=== PATIENT | male | born 1945 | race Caucasian/White ===

== ENCOUNTER 2017-12-08 15:11 | Inpatient (IN) | payer OTHER ==
[~2017-12-08] VITALS: Ht 210.8 cm; Wt 90.9 kg
--- NOTE | 2017-12-08 15:30 | EMERGENCY ROOM VISIT NOTE ---
History Report prepared by Asad: Linsey Orr Under the Supervision of: Dr. Jose Kaye D.O. 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 He states he was at [facility] and was told he had some elevated live enzymes and an ultrasound, chest x- ray, and blood work done for further testing but is unaware of the results. He describes his pain as a discomfort and notes it is difficult to sleep. The patient has some chest pain, abdominal pain, and nausea but denies any cancers in his abdomen or history of cirrhosis. The patient notes he drank heavily in the past and still drinks and chews tobacco. 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 A total of 10 systems reviewed and were otherwise negative. Past Medical & Surgical Medical Problems: (1) No significant past medical history Surgical Problems: (1) History of colonoscopy Family History No pertinent family history Social History Smoking Status: Former Smoker Smokeless Tobacco Use: Yes Alcohol Use: heavy Drug Use: none Housing Status: assisted living Occupation Status: retired Current/Historical Medications No Active Prescriptions or Reported Meds Allergies Coded Allergies: No Known Allergies (Unverified , 12/08/17) Physical Exam Vital Signs Date Time Temp Pulse Resp B/P (MAP) Pulse Ox O2 Delivery O2 Flow Rate FiO2 12/08/17 18:20 105 20 149/108 98 Room Air 12/08/17 17:19 100 20 116/94 96 Room Air 12/08/17 15:18 36.8 124 20 153/102 96 Room Air Physical Exam GENERAL: Patient is awake, alert, and in no acute distress. Patient is resting comfortably and showing no signs of anxiety EYES: The conjunctivae are clear. The pupils are round and reactive. EARS, NOSE, MOUTH AND THROAT: The nose is without any evidence of any deformity. Mucous membranes are moist. Tongue is midline NECK: The neck is nontender and supple. RESPIRATORY: Lung sounds were diminished at both bases. There is no evidence of wheezing rhonchi or rales to auscultation. CARDIOVASCULAR: Regular rate and rhythm noted. There no murmurs rubs or gallops normal S1 normal S2 GASTROINTESTINAL: The abdomen is soft. Bowel sounds are present in all quadrants. Abdomen is nontender. BACK: No midline tenderness or or step-off noted range of motion in flexion extension as well as rotation no signs of muscle spasm noted. : Circumcised male genitalia was noted. There was significant edema noted in the suprapubic region as well as the scrotum. MUSCULOSKELETAL/EXTREMITIES: There is no evidence of gross deformity. Full range of motion is noted in the hips and shoulders. SKIN: Pedal edema bilaterally. NEUROLOGIC: Patient is awake alert and oriented x3. Medical Decision & Procedures ER Provider Diagnostic Interpretation: Radiology results as stated below per my review and radiologist interpretation: CHEST ONE VIEW PORTABLE CLINICAL HISTORY: 72 years-old Male presenting with EVALUATE ALTERED MENTAL STATUS/WEAKNESS. TECHNIQUE: Portable upright AP view of the chest was obtained. COMPARISON: None. FINDINGS: Cardiac silhouette enlarged. Linear opacities in the left midlung with obscuration of the left hemidiaphragm. Suspected left pleural effusion. No pleural effusion. Degenerative changes of the spine and acromioclavicular joints. IMPRESSION: 1. Left midlung atelectasis or scarring with left basilar infiltrate. Pneumonia is not excluded. 2. Left pleural effusion. Electronically signed by: Rober Hanson M.D. 12/08/2017 4:25 PM ABD/PELVIS IV CONTRAST ONLY CLINICAL HISTORY: 72 years-old Male presenting with edema, abnormal US liver, testicular swelling. TECHNIQUE: Multidetector CT of the abdomen and pelvis was performed after the administration of intravenous contrast. IV contrast: 87 mL of Optiray 320. A dose lowering technique was used consistent with the principles of ALARA (as low as reasonably achievable). COMPARISON: None. CT DOSE (mGy.cm): The estimated cumulative dose is 869.62 mGy.cm. FINDINGS: Motion artifact degrades evaluation of the right upper and mid abdomen. Urology Surgeon topogram: Left basilar opacity and left pleural effusion. Lung bases: Bilateral bandlike and dependent consolidation in the lower lobes with associated volume loss consistent with passive atelectasis in the setting of small to moderate bilateral pleural effusions. Multichamber enlargement of the heart. Small pericardial effusion. Liver: Normal morphology. No liver lesion. Patent hepatic vasculature. Biliary: No intrahepatic or extrahepatic biliary ductal dilatation. Normal gallbladder. Pancreas: Mild parenchymal atrophy. Spleen: Normal. Adrenal glands: Normal. Kidneys and ureters: Normal. No hydronephrosis. Bladder: Incompletely evaluated secondary to underdistention. Pelvic organs: Prostate and seminal vesicles normal. Bowel: Diverticulosis of the proximal to mid sigmoid colon. No wall thickening or pericolonic inflammatory change. Scattered diverticula in the descending colon. The appendix is normal. No bowel obstruction. Peritoneal cavity: Trace free fluid in the pelvis. Small amount of retroperitoneal fluid tracking into the extraperitoneal pelvis and presacral region. No intraperitoneal free gas. Lymph nodes: No enlarged lymph nodes in the abdomen or pelvis. Vasculature: Aorta and IVC patent and normal in caliber. Abdominal wall: Mild body wall edema. Fat-containing left internal hernia. Fat, small bowel, and fluid containing right inguinal hernia. Musculoskeletal: Degenerative changes of the spine. IMPRESSION: 1. Bilateral inguinal hernias, right greater than left. The right inguinal hernia contains small bowel and fluid. No bowel obstruction. 2. Volume overload evidenced by small to moderate bilateral pleural effusions, trace ascites and diffuse body wall edema. 3. Cardiomegaly. 4. Diverticulosis. No evidence of diverticulitis. Electronically signed by: Rober Hanson M.D. 12/08/2017 5:17 PM Laboratory Results Test 12/08/17 15:40 Immature Granulocyte % (Auto) 0.0 % White Blood Count 4.05 K/uL (4.8-10.8) Red Blood Count 4.38 M/uL (4.7-6.1) Hemoglobin 14.2 g/dL (14.0-18.0) Hematocrit 43.3 % (42-52) Mean Corpuscular Volume 98.9 fL (80-100) Mean Corpuscular Hemoglobin 32.4 pg (25-34) Mean Corpuscular Hemoglobin Concent 32.8 g/dl (32-36) Platelet Count 192 K/uL (130-400) Mean Platelet Volume 10.7 fL (7.4-10.4) Neutrophils (%) (Auto) 65.5 % Lymphocytes (%) (Auto) 20.7 % Monocytes (%) (Auto) 13.1 % Eosinophils (%) (Auto) 0.5 % Basophils (%) (Auto) 0.2 % Neutrophils # (Auto) 2.65 K/uL (1.4-6.5) Lymphocytes # (Auto) 0.84 K/uL (1.2-3.4) Monocytes # (Auto) 0.53 K/uL (0.11-0.59) Eosinophils # (Auto) 0.02 K/uL (0-0.5) Basophils # (Auto) 0.01 K/uL (0-0.2) Immature Granulocyte # (Auto) 0.00 K/uL (0.00-0.02) Prothrombin Time 11.6 SECONDS (9.0-12.0) Prothromb Time International Ratio 1.1 (0.9-1.1) Activated Partial Thromboplast Time 25.5 SECONDS (21.0-31.0) Partial Thromboplastin Ratio 1.0 Lipase 473 U/L (73-393) Thyroid Stimulating Hormone (TSH) 2.680 uIu/ml (0.300-4.500) Hepatitis C Antibody NEG (NEG) Laboratory results per my review. Medications Administered Medications (Trade) Dose Ordered Sig/Ebenezer Route Start Time Stop Time Status Last Admin Dose Admin Furosemide (Lasix Inj) 40 mg NOW STAT IV 12/08/17 18:05 12/08/17 18:06 DC 12/08/17 18:16 40 MG ECG Per My Interpretation Indication: abdominal pain Rate (beats per minute): 108 Rhythm: sinus tachycardia Findings: PVC (frequent), other (poor R wave progression noted ) Comparison ECG Date: no prior available ED Course 1522: The patient was evaluated in room A11. A complete history and physical examination were performed. 1804: Ordered Lasix Inj 40 mg IV 1809: I discussed the patient's case with HERNÁN Greenberg. The patient will be evaluated for further management. Medical Decision Prior records/ancillary studies reviewed. Triage Nursing notes reviewed. Differential diagnosis: Etiologies such as appendicitis, diverticulitis, PUD, biliary pathology, UTI, pancreatitis, obstruction, mesenteric ischemia, aortic pathology, infections, inflammatory bowel disease, renal colic, as well as others were entertained. The patient is a 72-year-old male who presented to the emerge department for lower extremity and scrotal edema. The patient does have a long history of alcohol use but he has never been formally diagnosed with alcoholism cirrhosis or ascites. The patient has been having ongoing symptoms including shortness of breath. He was found to have ascites as well as bilateral pleural effusion. He also has an abnormal EKG and it is possible this could represent CHF or pulmonary edema. Clearly the patient has some sort of underlying medical condition which is causing him to third space fluid. The patient was treated with Lasix in the emergency department. I discussed patient's laboratory and radiographic studies with him. Because of his symptoms I also discussed his case with the on-call [facility] hospitalist group. They have agreed to evaluate the patient in the emergency department for further management and disposition. Medication Reconcilliation Current Medication List: was personally reviewed by me Blood Pressure Screening Patient's blood pressure: Elevated blood pressure Blood pressure disposition: Referred to PCP Consults Time Called: 1756 Consulting Physician: HERNÁN Greenberg Returned Call: 1809 I discussed the patient's case with HERNÁN Greenberg. The patient will be evaluated for further management. Impression Primary Impression: Anasarca Additional Impressions: Bilateral pleural effusion Ascites Abnormal EKG Scribe Attestation The scribe's documentation has been prepared under my direction and personally reviewed by me in its entirety. I confirm that the note above accurately reflects all work, treatment, procedures, and medical decision making performed by me. Departure Information Dispostion Being Evaluated By Hospitalist (HERNÁN Greenberg) Prescriptions No Active Prescriptions or Reported Meds Patient Instructions My [facility] Problem Qualifiers Additional Impressions: Ascites Ascites type: other type Qualified Codes: R18.8 - Other ascites
[2017-12-08 15:53] LABS: BASO % 0.2 %; BASO ABS # 0.01 K/uL (0-0.2); EOS % 0.5 %; EOS ABS # 0.02 K/uL (0-0.5); HEMATOCRIT 43.3 % (42-52); HEMOGLOBIN 14.2 g/dL (14.0-18.0); LYMPH % 20.7 %; LYMPH ABS # 0.84 K/uL (1.2-3.4); MEAN CELL VOLUME 98.9 fL (80-100); MEAN CORPUSCULAR HEMOGLOBIN 32.4 pg (25-34); MEAN CORPUSCULAR HGB CONC 32.8 g/dl (32-36); MEAN PLATELET VOLUME 10.7 fL (7.4-10.4); MONO % 13.1 %; MONO ABS # 0.53 K/uL (0.11-0.59); NEUT % 65.5 %; NEUT ABS # 2.65 K/uL (1.4-6.5); PLATELET COUNT 192 K/uL (130-400); RED CELL DISTRIBUTION WIDTH CV 14.2 % (11.5-14.5); RED CELL DISTRIBUTION WIDTH SD 50.7 fL (36.4-46.3); WHITE BLOOD COUNT 4.05 K/uL (4.8-10.8)
[2017-12-08 16:05] LABS: INR 1.1 (0.9-1.1); PTT PATIENT 25.5 SECONDS (21.0-31.0)
--- NOTE | 2017-12-08 16:26 | DIAGNOSTIC IMAGING REPORT ---
CHEST ONE VIEW PORTABLE CLINICAL HISTORY: 72 years-old Male presenting with EVALUATE ALTERED MENTAL STATUS/WEAKNESS. TECHNIQUE: Portable upright AP view of the chest was obtained. COMPARISON: None. FINDINGS: Cardiac silhouette enlarged. Linear opacities in the left midlung with obscuration of the left hemidiaphragm. Suspected left pleural effusion. No pleural effusion. Degenerative changes of the spine and acromioclavicular joints. IMPRESSION: 1. Left midlung atelectasis or scarring with left basilar infiltrate. Pneumonia is not excluded. 2. Left pleural effusion. Electronically signed by: Rober Hanson M.D. 12/08/2017 4:25 PM Dictated Date/Time: 12/08/2017 4:24 PM
[2017-12-08 16:28] LABS: ALBUMIN 3.6 gm/dl (3.4-5.0); CALCIUM 8.8 mg/dl (8.5-10.1); CREATININE 1.01 mg/dl (0.60-1.40); POTASSIUM 3.9 mmol/L (3.5-5.1); TOTAL PROTEIN 6.4 gm/dl (6.4-8.2)
[2017-12-08] MEDS ORDERED: OPTIRAY 320 IV PRN (16:30)
--- NOTE | 2017-12-08 17:18 | DIAGNOSTIC IMAGING REPORT ---
ABD/PELVIS IV CONTRAST ONLY CLINICAL HISTORY: 72 years-old Male presenting with edema, abnormal US liver, testicular swelling. TECHNIQUE: Multidetector CT of the abdomen and pelvis was performed after the administration of intravenous contrast. IV contrast: 87 mL of Optiray 320. A dose lowering technique was used consistent with the principles of ALARA (as low as reasonably achievable). COMPARISON: None. CT DOSE (mGy.cm): The estimated cumulative dose is 869.62 mGy.cm. FINDINGS: Motion artifact degrades evaluation of the right upper and mid abdomen. Layout Worker topogram: Left basilar opacity and left pleural effusion. Lung bases: Bilateral bandlike and dependent consolidation in the lower lobes with associated volume loss consistent with passive atelectasis in the setting of small to moderate bilateral pleural effusions. Multichamber enlargement of the heart. Small pericardial effusion. Liver: Normal morphology. No liver lesion. Patent hepatic vasculature. Biliary: No intrahepatic or extrahepatic biliary ductal dilatation. Normal gallbladder. Pancreas: Mild parenchymal atrophy. Spleen: Normal. Adrenal glands: Normal. Kidneys and ureters: Normal. No hydronephrosis. Bladder: Incompletely evaluated secondary to underdistention. Pelvic organs: Prostate and seminal vesicles normal. Bowel: Diverticulosis of the proximal to mid sigmoid colon. No wall thickening or pericolonic inflammatory change. Scattered diverticula in the descending colon. The appendix is normal. No bowel obstruction. Peritoneal cavity: Trace free fluid in the pelvis. Small amount of retroperitoneal fluid tracking into the extraperitoneal pelvis and presacral region. No intraperitoneal free gas. Lymph nodes: No enlarged lymph nodes in the abdomen or pelvis. Vasculature: Aorta and IVC patent and normal in caliber. Abdominal wall: Mild body wall edema. Fat-containing left internal hernia. Fat, small bowel, and fluid containing right inguinal hernia. Musculoskeletal: Degenerative changes of the spine. IMPRESSION: 1. Bilateral inguinal hernias, right greater than left. The right inguinal hernia contains small bowel and fluid. No bowel obstruction. 2. Volume overload evidenced by small to moderate bilateral pleural effusions, trace ascites and diffuse body wall edema. 3. Cardiomegaly. 4. Diverticulosis. No evidence of diverticulitis. Electronically signed by: Rober Hanson M.D. 12/08/2017 5:17 PM Dictated Date/Time: 12/08/2017 5:11 PM
[2017-12-08] MEDS ORDERED: FUROSEMIDE 40 MG/4 ML VIAL IV STA (18:05)
[2017-12-08] MEDS ORDERED: ACETAMINOPHEN 325 MG TAB PO PRN (19:00)
[2017-12-08] MEDS ORDERED: POLYETHYLENE (MIRALAX) 17 GM PACK PO PRN (19:00)
[2017-12-08] MEDS ORDERED: LORAZEPAM 2 MG/ML 1 ML VIAL IV PRN (19:15)
[2017-12-08] MEDS ORDERED: GABAPENTIN 600 MG TAB PO SCH (19:15)
--- NOTE | 2017-12-08 19:50 | History and Physical ---
History & Physical Date & Time of Service: Dec 08, 2017 at 19:18 Chief Complaint: Swelling Around Testicals Primary Care Physician: Barney Reno M.D. History of Present Illness Source: patient, clinic records, hospital records Pt is 72 y/o M without known significant medical history presented to ER with c/ o edema. Patient states 5 days ago he was working and pinched his left scrotum and states had slight scrotal edema. 2 days later reports diffuse increased scrotal edema. Reports scrotal pressure but denies pain or ecchymosis/ erythema. Reports scrotal edema surrounding penis and has had noted trouble with urination. Denies dysuria, hematuria. He has known inguinal hernia, denies any noted increased swelling or pain. Patient states 2 days ago noticed swelling to bilateral feet and legs and states felt diffuse abdominal pressure with sitting up. He reports cough sometimes intermittently productive (unsure coloration) for past 1-2 weeks. States 2 weeks ago started with postnasal drainage and states that increased drainage with lying supine. Noticed increased coughing at night. Reports noted orthopnea past week. Patient states noted 10pound weight gain upon evaluation at PCPs office. Today feeling a little dizzy, no syncope. Reports past 1-2 weeks with night sweats. Denies fever, diaphoresis, N/V/D/C, NOEL, vision changes, neck pain, CP, palpitations, hemoptysis, sore throat, choking, otalgia, paresthesias, weakness, extremity weakness, rashes, weight loss. Seen out pt PCP on 12/07/17 and had ULTRASOUND SCROTUM/TESTES: Impression: No evidence of injury testicular mass or torsion. Normal epididymis. Large bilateral hydrocele and edema of the scrotal wall. ULTRASOUND ABDOMEN: Impression diffusely increased echogenicity of the liver. Nonspecific finding. Fatty infiltration is a consideration, other diffuse hepatocellular processes. No sonographic evidence of cholelithiasis, cholecystitis or biliary ductal dilation. Limited evaluation of pancreas. Normal right kidney. Right pleural effusion. Denies fever/chills, diaphoresis, N/V/D/C, melena, hematochezia, NOEL, dizziness, syncope, vision changes, neck pain, CP, SOB, orthopnea, palpitations, cough, sore throat, choking, otalgia, rhinorrhea, abdominal pain, paresthesias, weakness, extremity weakness, extremity edema, rashes, weight loss. Past Medical/Surgical History Medical Problems: (1) No significant past medical history Status: Chronic Surgical Problems: (1) History of colonoscopy Permanent Comment: 2015 -diverticulosis, hyperplastic polyp. Dr. lemus Status: Resolved Family History FH: CAD (coronary artery disease) FH: leukemia FH: prostate cancer Hypertension Social History Smoking Status: Former Smoker Smokeless Tobacco Use: Yes (4-5 cans snuff per week) Alcohol Use: 3-4 beers a day. Last drink 2 days ago Drug Use: none Housing status: lives alone Occupational Status: retired Allergies Coded Allergies: No Known Allergies (Unverified , 12/08/17) Home Medications No Active Prescriptions or Reported Meds Review of Systems See HPI for pertinent positives & negatives. All other systems reviewed and were otherwise negative Physical Exam Vital Signs Date Time Temp Pulse Resp B/P (MAP) Pulse Ox O2 Delivery O2 Flow Rate FiO2 12/08/17 18:20 105 20 149/108 98 Room Air 12/08/17 17:19 100 20 116/94 96 Room Air 12/08/17 15:18 36.8 124 20 153/102 96 Room Air General Appearance: WD/WN, no apparent distress Head: normocephalic, atraumatic Eyes: normal inspection, EOMI, sclerae normal ENT: hearing grossly normal, pharynx normal, + pertinent finding (Mucous membranes moist) Neck: supple, trachea midline Respiratory/Chest: no respiratory distress, no accessory muscle use, + decreased breath sounds (Bases bilaterally) Cardiovascular: no murmur, normal peripheral pulses, + tachycardia Abdomen/GI: normal bowel sounds, non tender, soft Genitourinary - Male: + pertinent finding (+ bilateral inguinal hernia, nontender. + Moderate scrotal and penile edema) Extremities/Musculoskelatal: normal capillary refill, normal range of motion, non-tender, + pedal edema (Bilateral leg pitting edema 2-3+) Neurologic/Psych: alert, normal mood/affect, oriented x 3 Skin: warm/dry Diagnostics Laboratory Results Results Past 24 Hours Test 12/08/17 15:40 12/08/17 19:04 Range/Units White Blood Count 4.05 4.8-10.8 K/uL Red Blood Count 4.38 4.7-6.1 M/uL Hemoglobin 14.2 14.0-18.0 g/dL Hematocrit 43.3 42-52 % Mean Corpuscular Volume 98.9 80-100 fL Mean Corpuscular Hemoglobin 32.4 25-34 pg Mean Corpuscular Hemoglobin Concent 32.8 32-36 g/dl Platelet Count 192 130-400 K/uL Mean Platelet Volume 10.7 7.4-10.4 fL Neutrophils (%) (Auto) 65.5 % Lymphocytes (%) (Auto) 20.7 % Monocytes (%) (Auto) 13.1 % Eosinophils (%) (Auto) 0.5 % Basophils (%) (Auto) 0.2 % Neutrophils # (Auto) 2.65 1.4-6.5 K/uL Lymphocytes # (Auto) 0.84 1.2-3.4 K/uL Monocytes # (Auto) 0.53 0.11-0.59 K/uL Eosinophils # (Auto) 0.02 0-0.5 K/uL Basophils # (Auto) 0.01 0-0.2 K/uL RDW Standard Deviation 50.7 36.4-46.3 fL RDW Coefficient of Variation 14.2 11.5-14.5 % Immature Granulocyte % (Auto) 0.0 % Immature Granulocyte # (Auto) 0.00 0.00-0.02 K/uL Prothrombin Time 11.6 9.0-12.0 SECONDS Prothromb Time International Ratio 1.1 0.9-1.1 Activated Partial Thromboplast Time 25.5 21.0-31.0 SECONDS Partial Thromboplastin Ratio 1.0 Sodium Level 140 136-145 mmol/L Potassium Level 3.9 3.5-5.1 mmol/L Chloride Level 107 98-107 mmol/L Carbon Dioxide Level 24 21-32 mmol/L Anion Gap 9.0 3-11 mmol/L Blood Urea Nitrogen 22 7-18 mg/dl Creatinine 1.01 0.60-1.40 mg/dl Est Creatinine Clear Calc Drug Dose 83.4 ml/min Estimated GFR () 86.3 Estimated GFR (Non- 74.5 BUN/Creatinine Ratio 22.0 10-20 Random Glucose 114 70-99 mg/dl Calcium Level 8.8 8.5-10.1 mg/dl Magnesium Level 2.1 1.8-2.4 mg/dl Total Bilirubin 1.3 0.2-1 mg/dl Direct Bilirubin 0.4 0-0.2 mg/dl Aspartate Amino Transf (AST/SGOT) 39 15-37 U/L Alanine Aminotransferase (ALT/SGPT) 69 12-78 U/L Alkaline Phosphatase 92 45-117 U/L Troponin I 0.028 0-0.045 ng/ml Pro-B-Type Natriuretic Peptide 7742 0-900 pg/ml Total Protein 6.4 6.4-8.2 gm/dl Albumin 3.6 3.4-5.0 gm/dl Lipase 473 73-393 U/L Thyroid Stimulating Hormone (TSH) 2.680 0.300-4.500 uIu/ml Diagnostic Radiology CXR: IMPRESSION: 1. Left midlung atelectasis or scarring with left basilar infiltrate. Pneumonia is not excluded. 2. Left pleural effusion. CT ABDOMEN PELVIS: IMPRESSION: 1. Bilateral inguinal hernias, right greater than left. The right inguinal hernia contains small bowel and fluid. No bowel obstruction. 2. Volume overload evidenced by small to moderate bilateral pleural effusions, trace ascites and diffuse body wall edema. 3. Cardiomegaly. 4. Diverticulosis. No evidence of diverticulitis. Impression Assessment and Plan ANASARCA B/L PLEURAL EFFUSIONS DDX: CHF, cirrhosis, obstruction Pt reports onset scrotal edema 5 days ago with BLE edema 2 days ago. orthopnea x 1 week, noted ~10 pound weight gain. 12/07/17 outpatient U/S ABDOMEN: Impression diffusely increased echogenicity of the liver. Nonspecific finding. Fatty infiltration is a consideration, other diffuse hepatocellular processes. No sonographic evidence of cholelithiasis, cholecystitis or biliary ductal dilation. Limited evaluation of pancreas. Normal right kidney. Right pleural effusion. Today in ER pt afebrile, BP: 153/102 down to 115/88, P: 124 down to 101, R: 20, O2 96% on RA. WBC: 4, Troponin: 0.028, BNP: 7742. CXR: 1. Left midlung atelectasis or scarring with left basilar infiltrate. Pneumonia is not excluded. 2. Left pleural effusion. Pt was given lasix 40mg IV in ER -monitor I&O's and daily weight -low sodium diet, fluid restriction 1500ml -lasix 40mg IV BID -echo -cardiology consult -trend troponin -CBC, liver profile, electrolytes in am -BNP in am SCROTAL EDEMA BILATERAL HYDROCELES Reported onset scrotal edema 5 days ago with worsening 12/07/17 - Outpatient U/S SCROTUM/TESTES: Impression: No evidence of injury testicular mass or torsion. Normal epididymis. Large bilateral hydrocele and edema of the scrotal wall. 12/07/17 outpatient U/S ABDOMEN: Impression diffusely increased echogenicity of the liver. Nonspecific finding. Fatty infiltration is a consideration, other diffuse hepatocellular processes. No sonographic evidence of cholelithiasis, cholecystitis or biliary ductal dilation. Limited evaluation of pancreas. Normal right kidney. Right pleural effusion. -UA pending PERICARDIAL EFFUSION small pericardial effusion noted on CT abd/pelvis -echo -cardiology consult COUGH BILATERAL CONSOLIDATION LOWER LOBES DDX: infectious vs fluid overload Afebrile. no leukocytosis -start doxycycline -incentive spirometry HTN In ER BP's 153/102 down to 155/88 -Lasix 40mg IV BID -monitor ELEVATED LIVER FUNCTIONS Total bilirubin: 1.3, direct bilirubin: 0.4, AST: 39, ALT: 69, Alk Phos:92. Albumin WNL. Coags WNL. 12/07/17 outpatient U/S ABDOMEN: Impression diffusely increased echogenicity of the liver. Nonspecific finding. Fatty infiltration is a consideration, other diffuse hepatocellular processes. No sonographic evidence of cholelithiasis, cholecystitis or biliary ductal dilation. Limited evaluation of pancreas. Normal right kidney. Right pleural effusion. In ER CT ABDOMEN PELVIS: 1. Bilateral inguinal hernias, right greater than left. The right inguinal hernia contains small bowel and fluid. No bowel obstruction. 2. Volume overload evidenced by small to moderate bilateral pleural effusions, trace ascites and diffuse body wall edema. 3. Cardiomegaly. 4. Diverticulosis. No evidence of diverticulitis. - liver profile, electrolytes in am -acute hepatitis panel ETOH ABUSE drinks 4 beers daily. Last drink reported 2 days ago -alcohol withdrawal protocol -start thiamine, folic acid QTC PROLONGATION QTc: 482 -avoid QTc prolonging agents DVT Prophylaxis -lovenox Admit tele Full Code as per discussion with pt Follows with Dr Reno for routine care Pt was seen with Dr Parks. See addendum Attending Note: Patient is a 72 yr male with no known significant medical history presents with history of worsening leg edema, scrotal swelling, weight gain, difficulty with urination, abdominal discomfort, productive cough, diaphoresis at night time, orthopnea and dizziness. Please review HPI for complete details. Patient was underwent scrotal USD and abd USD as outpatient which did not show any evidence of testicular mass/torsion but was consistent with large hydrocele and edema of scrotal wall. Abd USD was suggestive of diffusely increased echogenicity of the liver. Patient was also noted to have mild elevation of LFTs and Pro- BNP was 7742. CT abd showed b/l inguinal hernia, b/l pleural effusion, cardiomegaly. CXR showed Left basilar infiltrate and left pleural effusion. Patient admits to drinking beer on daily basis. Physical Exam: General Appearance:Moderately built and nourished, no apparent distress Head: normocephalic, Atraumatic Eyes: normal inspection, EOMI, PERRL Neck: supple, Trachea midline Respiratory/Chest: Normal breath sounds, CTA Cardiovascular: S1, S2, No murmur, +Tachycardia Abdomen/GI:Soft, Non tender, Bowel sounds present : severe Scrotal swelling, + Inguinal hernia Extremities/Musculoskelatal:normal inspection, 2+ b/l LE edema Neurologic/Psych:AAOX3, grossly no focal neurological deficits Skin:normal color,warm Assessment and Plan: Anasarca: No known history of CHF, Liver disease, CKD, Medication use DD: CHF, Cirrhosis (Given chronic alcoholic use and USD findings), Obstructive Uropathy, r/o ACS although less likely Normal TSH, Albumin:3.6 Agree with IV diuretics, Fluid restriction, Low salt diet Check ECHO Bladder scan protocol, I/Os, daily weight EKG in am, Trend Troponin Empirically cover doxycycline for possible pneumonia Monitor BP Hepatitis panel Cardiology consulted Consider GI eval as necessary Repeat EKG in AM Avoid QTC prolonging meds I personally reviewed the record. Patient is interviewed and examined at bedside. Patient's care is coordinated with Shanon Quintero PA-C. Please refer to the documentation above for details of patient's presentation and for discussion of other issues. Resuscitation Status VTE Prophylaxis Will order VTE Prophylaxis: Yes Additional Copies To Barney Reno M.D.
[2017-12-08 21:00] VITALS: Ht 210.8 cm; Wt 90.9 kg
[2017-12-08 21:16] VITALS: BP 127/94; PULSE 106; TEMP 36.8; O2SAT 98
[2017-12-08] MEDS: ENOXAPARIN 40 MG/0.4 ML SYR SC SCH (21:31)
[2017-12-08] MEDS: DOXYCYCLINE HYCLATE 100 MG CAP PO SCH (21:32)
[2017-12-08] MEDS ORDERED: GABAPENTIN 1200MG LOADING DOSE PO SCH (22:00)
[2017-12-08 23:54] VITALS: BP 119/75; PULSE 87; TEMP 36.8; O2SAT 92
[2017-12-09] VITALS (9 sets, daily range): BP systolic 99–124; BP diastolic 75–94; PULSE 75–97; TEMP 36.4–37; O2SAT 92–98
[2017-12-09] MEDS: GABAPENTIN 600MG Q6H DOSE PO SCH ×2 (06:21→11:34)
[2017-12-09 06:38] LABS: HEMATOCRIT 43.9 % (42-52); HEMOGLOBIN 13.9 g/dL (14.0-18.0); MEAN CELL VOLUME 100.2 fL (80-100); MEAN CORPUSCULAR HEMOGLOBIN 31.7 pg (25-34); MEAN CORPUSCULAR HGB CONC 31.7 g/dl (32-36); MEAN PLATELET VOLUME 10.3 fL (7.4-10.4); PLATELET COUNT 157 K/uL (130-400); RED CELL DISTRIBUTION WIDTH CV 14.4 % (11.5-14.5); RED CELL DISTRIBUTION WIDTH SD 52.3 fL (36.4-46.3); WHITE BLOOD COUNT 2.85 K/uL (4.8-10.8)
[2017-12-09 07:26] LABS: ALBUMIN 3.3 gm/dl (3.4-5.0); CALCIUM 8.6 mg/dl (8.5-10.1); CREATININE 1.04 mg/dl (0.60-1.40); PHOSPHORUS 4.4 mg/dl (2.5-4.9); POTASSIUM 3.7 mmol/L (3.5-5.1)
[2017-12-09] MEDS: MULTIVITAMIN TAB PO SCH (07:50)
[2017-12-09] MEDS: THIAMINE HCL 100 MG TAB PO SCH (07:50)
[2017-12-09] MEDS: DOXYCYCLINE HYCLATE 100 MG CAP PO SCH ×2 (07:50→20:41)
[2017-12-09] MEDS: FoLIC ACID TAB 400 MCG TAB PO SCH (07:50)
[2017-12-09] MEDS: FUROSEMIDE INJ 40 MG in SYRINGE 0 ML IV SCH ×2 (07:50→16:55)
--- NOTE | 2017-12-09 11:06 | Cardiology Consultation ---
Cardiology Consultation Date of Consultation: Dec 09, 2017 Requesting Physician: Ingrid/Charly Attending Wreath Maker: Kaila (Barney Thomason PA-C) History of Present Illness Mr. Dos Santos is a 72-year-old male who is being seen at the request of Ms. Shanon Quintero PA-C/Dr. Ramiro Parks MD. Reasons for consultation include fluid overload and pericardial effusion. He presented to the [facility] Emergency Room primarily due to testicular pain/swelling. On questioning, he has been experiencing a mild nonproductive cough at night and in the pathology tech hours for the last couple weeks, intermittent orthopnea for the last couple weeks that he attributes to sinus congestion, intermittent diaphoresis at night, abdominal distention followed more recently by scrotal edema, and lastly lower extremity peripheral edema and weight gain. Mr. Dos Santos denies prior cardiac history. He specifically denies history of CAD, LA, CHF, arrhythmias, heart murmur, rheumatic fever, or scarlet fever. He denies recent illnesses. No sick contacts. No recent respiratory tract infections. No fevers. No chills. No recent travel. No rash. The patient has been admitted to the hospital with a diagnosis of anasarca. He was started on 40 mg IV Lasix in the emergency room with improvement in presenting symptoms. (Barney Thomason PA-C) Past Medical/Surgical History Problem List: Bilateral inguinal hernias Epistaxis requiring cautery a couple years ago History of colonoscopy (Barney Thomason PA-C) Family History Mother with CAD at the age of 62. His father was killed in a mining accident in his early 30s. The patient has 2 brothers, one with what sounds like atrial arrhythmias and sleep apnea. The second brother may have underlying coronary disease. 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 Ann. (Barney Thomason PA-C) FH: CAD (coronary artery disease) FH: leukemia FH: prostate cancer Hypertension (Gm Bright DO) Social History Non-smoker. He chews five (5) cans of [place] per week and has done so for many many years. Alcohol: 3 to 4 12 ounce beers per night, [employer]. He notes long-standing alcohol use/abuse. He denies illegal drug use. Single. No children. Employment: [employer] in [place], [place] x 35 years - currently working 4 10'S. (Barney Thomason PA-C) Review Of Systems General: 10 pound weight gain. + Night sweats. No fever. No chills. HEENT: No headaches. No amaurosis fugax. No head trauma. Cardiovascular: See above. No near syncope or true syncope. No chest pain. See above. Mild nonproductive cough. No hemoptysis. Pulmonary: Gastrointestinal: No nausea, vomiting, or diarrhea. No melena or hematochezia. : No hematuria. No dysuria. Skin: No rash. Musculoskeletal: No joint pain. No new or worsening myalgias/arthralgias. Neurological: No history of TIA, CVA, or seizure disorder. Complete review of system is otherwise as stated above, negative, noncontributory. (Barney Thomason PA-C) Allergies Coded Allergies: No Known Allergies (Unverified , 12/08/17) Medications Reported Home Medications Medications Dose Route/Sig Max Daily Dose Days Date Category No Active Prescriptions or Reported Medications Rx (Barney Thomason PA-C) Physical Exam Vital Signs (Last 8hrs): Last 8 Hrs Date Time Temp Pulse Resp B/P (MAP) Pulse Ox O2 Delivery O2 Flow Rate FiO2 12/09/17 08:00 94 Room Air 12/09/17 07:39 36.7 80 18 124/94 (104) 94 Room Air 12/09/17 03:41 36.7 76 17 109/90 (96) 98 Room Air General: Alert and Oriented x3. NAD. HEENT: Normocephalic Atraumatic. PER, EOMI, conjunctiva and sclera clear Neck: + JVD. +HJR. No carotid bruits. Respiratory: Decreased at the bases. Diminished at the bases. Bibasilar rales. No wheeze. No rhonchi. Cardiovascular: Irregular with frequent ectopy and a pattern of bigeminy. Soft apical systolic murmur. PMI is displaced. Abdomen: + BS. No abdominal bruits. Soft. Nontender. + hepatomegaly. Extremities: Diffuse edema, trace to 1+. No clubbing. No cyanosis. Distal pulses are 1/4 bilaterally. Neuro: No focal deficits. Psychiatric: Normal affect. (Barney Thomason PA-C) Data Last 24 Hours Test 12/08/17 15:40 12/08/17 19:30 12/09/17 06:09 White Blood Count 4.05 K/uL 2.85 K/uL Red Blood Count 4.38 M/uL 4.38 M/uL Hemoglobin 14.2 g/dL 13.9 g/dL Hematocrit 43.3 % 43.9 % Mean Corpuscular Volume 98.9 fL 100.2 fL Mean Corpuscular Hemoglobin 32.4 pg 31.7 pg Mean Corpuscular Hemoglobin Concent 32.8 g/dl 31.7 g/dl Platelet Count 192 K/uL 157 K/uL Mean Platelet Volume 10.7 fL 10.3 fL Neutrophils (%) (Auto) 65.5 % Lymphocytes (%) (Auto) 20.7 % Monocytes (%) (Auto) 13.1 % Eosinophils (%) (Auto) 0.5 % Basophils (%) (Auto) 0.2 % Neutrophils # (Auto) 2.65 K/uL Lymphocytes # (Auto) 0.84 K/uL Monocytes # (Auto) 0.53 K/uL Eosinophils # (Auto) 0.02 K/uL Basophils # (Auto) 0.01 K/uL RDW Standard Deviation 50.7 fL 52.3 fL RDW Coefficient of Variation 14.2 % 14.4 % Immature Granulocyte % (Auto) 0.0 % Immature Granulocyte # (Auto) 0.00 K/uL Prothrombin Time 11.6 SECONDS Prothromb Time International Ratio 1.1 Activated Partial Thromboplast Time 25.5 SECONDS Partial Thromboplastin Ratio 1.0 Sodium Level 140 mmol/L 141 mmol/L Potassium Level 3.9 mmol/L 3.7 mmol/L Chloride Level 107 mmol/L 106 mmol/L Carbon Dioxide Level 24 mmol/L 28 mmol/L Anion Gap 9.0 mmol/L 7.0 mmol/L Blood Urea Nitrogen 22 mg/dl 20 mg/dl Creatinine 1.01 mg/dl 1.04 mg/dl Est Creatinine Clear Calc Drug Dose 83.4 ml/min 88.8 ml/min Estimated GFR () 86.3 83.3 Estimated GFR (Non- 74.5 71.9 BUN/Creatinine Ratio 22.0 19.2 Random Glucose 114 mg/dl 96 mg/dl Calcium Level 8.8 mg/dl 8.6 mg/dl Phosphorus Level 3.7 mg/dl 4.4 mg/dl Magnesium Level 2.1 mg/dl 2.3 mg/dl Total Bilirubin 1.3 mg/dl 1.2 mg/dl Direct Bilirubin 0.4 mg/dl 0.4 mg/dl Aspartate Amino Transf (AST/SGOT) 39 U/L 28 U/L Alanine Aminotransferase (ALT/SGPT) 69 U/L 59 U/L Alkaline Phosphatase 92 U/L 85 U/L Troponin I 0.028 ng/ml 0.033 ng/ml Pro-B-Type Natriuretic Peptide 7742 pg/ml 6177 pg/ml Total Protein 6.4 gm/dl 6.0 gm/dl Albumin 3.6 gm/dl 3.3 gm/dl Lipase 473 U/L Thyroid Stimulating Hormone (TSH) 2.680 uIu/ml Hepatitis C Antibody NEG Urine Color YELLOW Urine Appearance CLEAR Urine pH 5.5 Urine Specific [place] 1.008 Urine Protein NEG Urine Glucose (UA) NEG Urine Ketones NEG Urine Occult Blood NEG Urine Nitrite NEG Urine Bilirubin NEG Urine Urobilinogen NEG Urine Leukocyte Esterase NEG Globulin 2.7 gm/dl Albumin/Globulin Ratio 1.2 Admission chest x-ray per radiological interpretation revealed left midlung atelectasis or scarring with left basilar infiltrate. Pneumonia not excluded. Left pleural effusion. Review of the x-ray personally reveals cardiomegaly with congestive heart failure and a small left pleural effusion Abdomen/pelvis CT report reviewed. Per radiological interpretation, patient with bilateral inguinal hernias, right greater than left. No bowel obstruction. Volume overload evidenced by small to moderate bilateral pleural effusions, trace ascites, diffuse body wall edema. Cardiomegaly. Diverticulosis with no evidence of diverticulitis. Admission EKG revealed sinus tachycardia with ventricular rate of 108 bpm. There were frequent premature ventricular complexes, possible left atrial enlargement, left axis deviation, possible old anterior infarct. EKG this morning reveals sinus rhythm at 84 bpm with frequent premature ventricular complexes, possible left atrial enlargement, left axis deviation, and an incomplete left bundle branch block with nonspecific T-wave changes. QRS duration is narrow, 118 ms. QTc is 479 ms. Continuous telemetry monitoring reveals sinus with frequent premature ventricular complexes. Overall rates around 80 bpm. No sustained ventricular arrhythmias. No significant bradycardia/pauses. Resting echocardiography has been obtained, pending interpretation. (Barney Thomason PA-C) Assessment & Plan New onset acute decompensated systolic congestive heart failure signs and symptoms with severe reduction in left ventricular systolic function [place] Heart [employer] Class II-III symptomology EKG with an incomplete left bundle branch block with narrow QRS duration RECOMMENDATIONS/PLAN: Strict monitoring of his I/O's. Continuous telemetry monitoring Restrict sodium intake to 1500 mg/day. Restrict fluid intake to 1500 ml/day. Utilize IV furosemide, 40 mg every 12 hours for now. Initiate appropriate evidence-based heart failure medications Start Toprol XL 12.5 mg twice a day Start Losartan 12.5 mg/day, eventually transitioning to Entresto Start spironolactone 25 mg/day Workup to determine etiology (alcohol seems most likely at this point) Check iron studies, SPEP, KAREN. TSH normal. Diagnostic cardiac catheterization once compensated Explore a wearable cardioverter-defibrillator (LifeVest) (Social Service Consultation) Possible future ICD implantation briefly discussed. Abstain from all alcohol. The above recommendations were discussed fully with the patient, his brother, and his [id number] who is a nurse. Further recommendations pending the above , evaluation by Dr. Bright, and his ongoing hospitalization. (Barney Thomason PA-C) Cardiology Attending Physician: Patient seen and examined at the bedside. Describes scrotal edema 3 days. Reports dyspnea on exertion without chest discomfort. Mild weight gain. Denies chest discomfort or heaviness. No palpitations, lightheadedness, dizziness, syncope, or near syncope. Admits to drinking 2-4 alcoholic beverages per day. Symptoms improved with diuretic therapy. Fluid balance negative 2.5 liters since admission. PE: VSS. Gen: NAD. AAO x3. Heart: Regular, normal S1, S2. 1/6 systolic murmur heard best at left ventricular apex. Lungs demonstrate diminished breath sounds at the bases bilateral. Abdomen soft nontender no rebound or guarding. Extremities demonstrate +1 bilateral pretibial edema. A/P: Agree with above HERNÁN history, physical exam, assessment and plan. Evidence-based heart failure therapy initiated with beta-kel, Aldactone, and ARB. Will continue intravenous diuretic therapy to improve volume status. Ultimate plans for further ischemic evaluation prior to discharge. Repeat basic metabolic panel in a.m. Follow telemetry. Instructed patient to abstain from alcohol intake in the future. Monitor for signs of withdrawal. Thank you for allowing us to participate in the care of your patient. Juice Bright DO, [facility] (Gm Bright DO)
[2017-12-09] MEDS: SPIRONOLACTONE 25 MG TAB PO SCH (11:34)
[2017-12-09 12:05] LABS: TRANSFERRIN 300 mg/dl (200-360)
--- NOTE | 2017-12-09 12:33 | Gastrointestinal Consultation ---
Gastrointestinal Consultation Date of Consultation: Dec 09, 2017 Attending Physician: Maricruz Waldrop Consulting Physician: Faraz Suresh Reason for Consultation: ETOH liver disease, ascites. History of Present Illness Patient is a 72 year old male seen for possible ETOH liver disease and ascites. He presented to ED yesterday with progressive scrotal swelling and discomfort for a week now. Denies any trauma or difficulty with urination. He also recently started to notice swelling on bilateral LE, felt abd pressure when sitting up. Weight noted to be up by around 10 lbs from his baseline. He denies any fever, chills, abd pain, n/v, changes in BM habits. Labs notable for BNP of 7K, LFTs a bit elevated: Tbili 1.2, AST 28, ALT 59, Alk phos 85, Lipase 473. He otherwise has normal CBC including normal plt, and INR. BUN/Cr normal. CT abd/pelvis w IV contrast showed normal appearing liver w patent hepatic vasculature. He does have bilateral inguinal hernias R >L, diverticulosis, + volume overload evidenced by bilateral pleural effusions, trace ascites, diffuse body wall edema, and cardiomegaly. He was started on Lasix 40mg IV BID, so far diuresed 2.5L out. He noticed improvement on scrotal and bilateral LE swelling. He denies any personal or family hx of liver diseases. Mother of [place] at age 60s. He drinks 4-5 beers daily, chews snuff, denies any drug uses. Past Medical/Surgical History Medical Problems: (1) Abnormal EKG Status: Acute (2) Anasarca Status: Acute (3) Ascites Status: Acute (4) Bilateral pleural effusion Status: Acute Past Medical History: See above. Past Surgical History: None Family History FH: CAD (coronary artery disease) FH: leukemia FH: prostate cancer Hypertension Social History Alcohol Use: heavy Drug Use: none Housing Status: assisted living Allergies Coded Allergies: No Known Allergies (Unverified , 12/08/17) Current Medications Home Meds and Scripts Medications Dose Route/Sig Max Daily Dose Days Date Category No Active Prescriptions or Reported Medications Rx Review of Systems Constitutional: No fever, No chills Respiratory: No cough, No shortness of breath Cardiac: + edema, No chest pain Abdomen: No pain, No nausea, No vomiting Male : + see HPI Skin: No rash, No itch, No jaundice Physical Exam Date Time Temp Pulse Resp B/P (MAP) Pulse Ox O2 Delivery O2 Flow Rate FiO2 12/09/17 12:00 94 Room Air 12/09/17 12:00 75 12/09/17 08:00 94 Room Air 12/09/17 07:39 36.7 80 18 124/94 (104) 94 Room Air 12/09/17 03:41 36.7 76 17 109/90 (96) 98 Room Air 12/08/17 23:54 36.8 87 17 119/75 (90) 92 Room Air 12/08/17 21:16 36.8 106 20 127/94 (105) 98 Room Air 12/08/17 21:00 Room Air 12/08/17 19:53 101 18 115/88 97 12/08/17 18:20 105 20 149/108 98 Room Air 12/08/17 17:19 100 20 116/94 96 Room Air 12/08/17 15:18 36.8 124 20 153/102 96 Room Air General Appearance: WD/WN, no apparent distress Eyes: normal inspection, PERRL, EOMI Neck: supple, no JVD, trachea midline Respiratory/Chest: normal breath sounds, no respiratory distress, no accessory muscle use Cardiovascular: regular rate, rhythm, no gallop, no murmur Abdomen: normal bowel sounds, non tender, soft Extremities: + pedal edema (+1 pitting edema bilateral LE ) Neurologic/Psych: alert, normal mood/affect, oriented x 3 Skin: normal color, no jaundice, no rash Laboratory Results Last 24 Hours Test 12/08/17 15:40 12/08/17 19:30 12/09/17 06:09 12/09/17 11:18 White Blood Count 4.05 K/uL 2.85 K/uL Red Blood Count 4.38 M/uL 4.38 M/uL Hemoglobin 14.2 g/dL 13.9 g/dL Hematocrit 43.3 % 43.9 % Mean Corpuscular Volume 98.9 fL 100.2 fL Mean Corpuscular Hemoglobin 32.4 pg 31.7 pg Mean Corpuscular Hemoglobin Concent 32.8 g/dl 31.7 g/dl Platelet Count 192 K/uL 157 K/uL Mean Platelet Volume 10.7 fL 10.3 fL Neutrophils (%) (Auto) 65.5 % Lymphocytes (%) (Auto) 20.7 % Monocytes (%) (Auto) 13.1 % Eosinophils (%) (Auto) 0.5 % Basophils (%) (Auto) 0.2 % Neutrophils # (Auto) 2.65 K/uL Lymphocytes # (Auto) 0.84 K/uL Monocytes # (Auto) 0.53 K/uL Eosinophils # (Auto) 0.02 K/uL Basophils # (Auto) 0.01 K/uL RDW Standard Deviation 50.7 fL 52.3 fL RDW Coefficient of Variation 14.2 % 14.4 % Immature Granulocyte % (Auto) 0.0 % Immature Granulocyte # (Auto) 0.00 K/uL Prothrombin Time 11.6 SECONDS Prothromb Time International Ratio 1.1 Activated Partial Thromboplast Time 25.5 SECONDS Partial Thromboplastin Ratio 1.0 Sodium Level 140 mmol/L 141 mmol/L Potassium Level 3.9 mmol/L 3.7 mmol/L Chloride Level 107 mmol/L 106 mmol/L Carbon Dioxide Level 24 mmol/L 28 mmol/L Anion Gap 9.0 mmol/L 7.0 mmol/L Blood Urea Nitrogen 22 mg/dl 20 mg/dl Creatinine 1.01 mg/dl 1.04 mg/dl Est Creatinine Clear Calc Drug Dose 83.4 ml/min 88.8 ml/min Estimated GFR () 86.3 83.3 Estimated GFR (Non- 74.5 71.9 BUN/Creatinine Ratio 22.0 19.2 Random Glucose 114 mg/dl 96 mg/dl Calcium Level 8.8 mg/dl 8.6 mg/dl Phosphorus Level 3.7 mg/dl 4.4 mg/dl Magnesium Level 2.1 mg/dl 2.3 mg/dl Total Bilirubin 1.3 mg/dl 1.2 mg/dl Direct Bilirubin 0.4 mg/dl 0.4 mg/dl Aspartate Amino Transf (AST/SGOT) 39 U/L 28 U/L Alanine Aminotransferase (ALT/SGPT) 69 U/L 59 U/L Alkaline Phosphatase 92 U/L 85 U/L Troponin I 0.028 ng/ml 0.033 ng/ml Pro-B-Type Natriuretic Peptide 7742 pg/ml 6177 pg/ml Total Protein 6.4 gm/dl 6.0 gm/dl Albumin 3.6 gm/dl 3.3 gm/dl Lipase 473 U/L Thyroid Stimulating Hormone (TSH) 2.680 uIu/ml Hepatitis C Antibody NEG Urine Color YELLOW Urine Appearance CLEAR Urine pH 5.5 Urine Specific [place] 1.008 Urine Protein NEG Urine Glucose (UA) NEG Urine Ketones NEG Urine Occult Blood NEG Urine Nitrite NEG Urine Bilirubin NEG Urine Urobilinogen NEG Urine Leukocyte Esterase NEG Globulin 2.7 gm/dl Albumin/Globulin Ratio 1.2 Iron Level 43 mcg/dl Total Iron Binding Capacity 387 mcg/dl Transferrin 300 mg/dl Transferrin % Saturation 10 % Impression Patient is a 72 year old male seen for possible ETOH liver disease, ascites. He presented with volume overload picture - normal kidney function but BNP up at 7K , has anasarca, leg edema, cardiomegaly and bilateral pleural effusion. His ascites is trace, wouldn't be enough to do a diagnostic paracentesis. His LFTs are very mildly up, normal Plt and INR otherwise. Liver also appears normal on contrasted CT scan w also patent hepatic vasculature. Thus doesn't have cirrhosis, and likely volume overload due to congestive heart disease. Cardiology following. Plan - Discussed with him ETOH reduction/avoidance. - 2g Na, heart healthy diet. - Diuretics management to be coordinated by primary team and Cardiology - Cardiology following, appreciate recs. - No indication for further liver disease workup at this time. Please call if new questions/concerns arise. Attending attestation I have seen, examined this patient, and agree with the findings and above by our mid-level provider Shyanne Arrington. -Imaging, exam, labs, not convincing for chronic decompensated liver disease. Counseled on EtoH use. -Diuretics, follow up with PCP
--- NOTE | 2017-12-09 14:57 | Hospitalist Progress Note ---
Hospitalist Progress Note Date of Service Dec 09, 2017. (Shanon Quintero ., PA-C) Subjective Pt evaluation today including: conversation w/ patient, physical exam, chart review, lab review, review of inpatient medication list Patient seen and examined. Sitting up in bed. Patient states feeling better this morning and not having as much edema. States decreased swelling to BLE and scrotum and suprapubic region. Feels abdomen less bloated this morning and able to set up without as much pressure. Still feels more comfortable with HOB elevated, has not tried lying supine. he reports has been urinating frequently and denies any difficulty with urination, denies dysuria, hematuria. Total urine output since admitted yesterday 2650 mL. Denies any chest pain or shortness of breath. States having some nasal congestion, feels like has some postnasal drip. Still with occasional dry cough. Denies fever/chills, diaphoresis, N/V/D, NOEL, dizziness, syncope, vision changes, neck pain, palpitations, sore throat, choking, otalgia, abdominal pain, scrotal pain. (Shanon Quintero ., PA-C) Medications Medications (Trade) Dose Ordered Sig/Ebenezer Route Start Time Stop Time Status Last Admin Dose Admin Furosemide (Lasix Inj) 40 mg NOW STAT IV 12/08/17 18:05 12/08/17 18:06 DC 12/08/17 18:16 40 MG Enoxaparin Sodium (Lovenox Inj) 40 mg QPM SC 12/08/17 21:00 01/07/18 20:59 12/08/17 21:31 40 MG Doxycycline Hyclate (Vibramycin Cap) 100 mg BID PO 12/08/17 21:00 12/15/17 20:59 12/09/17 07:50 100 MG Thiamine HCl (Vitamin B-1 Tab) 100 mg QAM PO 12/09/17 09:00 01/08/18 08:59 12/09/17 07:50 100 MG Folic Acid (Folvite Tab) 400 mcg QAM PO 12/09/17 09:00 01/08/18 08:59 12/09/17 07:50 400 MCG Multivitamins (Multivitamin Tab) 1 tab QAM PO 12/09/17 09:00 9/7/18 08:59 12/09/17 07:50 1 TAB Furosemide 40 mg/ Syringe 4 ml @ 4 mls/min BID17 IV 12/09/17 09:00 01/08/18 08:59 12/09/17 07:50 4 MLS/MIN Gabapentin (Neurontin Tab) 1,200 mg TODAY@2200 PO 12/08/17 22:00 01/07/18 21:59 12/08/17 21:32 1,200 MG Gabapentin (Neurontin Tab) 600 mg Q6H PO 12/09/17 06:00 12/09/17 12:01 12/09/17 06:21 600 MG (Shanon Quintero ., PA-C) Objective Vital Signs Date Time Temp Pulse Resp B/P (MAP) Pulse Ox O2 Delivery O2 Flow Rate FiO2 12/09/17 08:00 94 Room Air 12/09/17 07:39 36.7 80 18 124/94 (104) 94 Room Air 12/09/17 03:41 36.7 76 17 109/90 (96) 98 Room Air 12/08/17 23:54 36.8 87 17 119/75 (90) 92 Room Air 12/08/17 21:16 36.8 106 20 127/94 (105) 98 Room Air 12/08/17 21:00 Room Air 12/08/17 19:53 101 18 115/88 97 12/08/17 18:20 105 20 149/108 98 Room Air 12/08/17 17:19 100 20 116/94 96 Room Air 12/08/17 15:18 36.8 124 20 153/102 96 Room Air (Shanon Quintero ., PA-C) Physical Exam General Appearance: WD/WN, no apparent distress Eyes: normal inspection, sclerae normal ENT: hearing grossly normal, pharynx normal, + pertinent finding (Mucous membranes moist) Neck: supple, trachea midline Respiratory/Chest: lungs clear, normal breath sounds, no respiratory distress Cardiovascular: regular rate, rhythm, + extra beats Abdomen: normal bowel sounds, non tender, soft, + pertinent finding (Noted some decreased edema suprapubic, scrotum, penis) Extremities: non-tender, + pertinent finding (1+ edema bilateral extremities) Neurologic/Psychiatric: alert, normal mood/affect, oriented x 3 Skin: warm/dry (Shanon Quintero, HERNÁN) Laboratory Results Last 24 Hours Test 12/08/17 15:40 12/08/17 19:30 12/09/17 06:09 White Blood Count 4.05 K/uL 2.85 K/uL Red Blood Count 4.38 M/uL 4.38 M/uL Hemoglobin 14.2 g/dL 13.9 g/dL Hematocrit 43.3 % 43.9 % Mean Corpuscular Volume 98.9 fL 100.2 fL Mean Corpuscular Hemoglobin 32.4 pg 31.7 pg Mean Corpuscular Hemoglobin Concent 32.8 g/dl 31.7 g/dl Platelet Count 192 K/uL 157 K/uL Mean Platelet Volume 10.7 fL 10.3 fL Neutrophils (%) (Auto) 65.5 % Lymphocytes (%) (Auto) 20.7 % Monocytes (%) (Auto) 13.1 % Eosinophils (%) (Auto) 0.5 % Basophils (%) (Auto) 0.2 % Neutrophils # (Auto) 2.65 K/uL Lymphocytes # (Auto) 0.84 K/uL Monocytes # (Auto) 0.53 K/uL Eosinophils # (Auto) 0.02 K/uL Basophils # (Auto) 0.01 K/uL RDW Standard Deviation 50.7 fL 52.3 fL RDW Coefficient of Variation 14.2 % 14.4 % Immature Granulocyte % (Auto) 0.0 % Immature Granulocyte # (Auto) 0.00 K/uL Prothrombin Time 11.6 SECONDS Prothromb Time International Ratio 1.1 Activated Partial Thromboplast Time 25.5 SECONDS Partial Thromboplastin Ratio 1.0 Sodium Level 140 mmol/L 141 mmol/L Potassium Level 3.9 mmol/L 3.7 mmol/L Chloride Level 107 mmol/L 106 mmol/L Carbon Dioxide Level 24 mmol/L 28 mmol/L Anion Gap 9.0 mmol/L 7.0 mmol/L Blood Urea Nitrogen 22 mg/dl 20 mg/dl Creatinine 1.01 mg/dl 1.04 mg/dl Est Creatinine Clear Calc Drug Dose 83.4 ml/min 88.8 ml/min Estimated GFR () 86.3 83.3 Estimated GFR (Non- 74.5 71.9 BUN/Creatinine Ratio 22.0 19.2 Random Glucose 114 mg/dl 96 mg/dl Calcium Level 8.8 mg/dl 8.6 mg/dl Phosphorus Level 3.7 mg/dl 4.4 mg/dl Magnesium Level 2.1 mg/dl 2.3 mg/dl Total Bilirubin 1.3 mg/dl 1.2 mg/dl Direct Bilirubin 0.4 mg/dl 0.4 mg/dl Aspartate Amino Transf (AST/SGOT) 39 U/L 28 U/L Alanine Aminotransferase (ALT/SGPT) 69 U/L 59 U/L Alkaline Phosphatase 92 U/L 85 U/L Troponin I 0.028 ng/ml 0.033 ng/ml Pro-B-Type Natriuretic Peptide 7742 pg/ml 6177 pg/ml Total Protein 6.4 gm/dl 6.0 gm/dl Albumin 3.6 gm/dl 3.3 gm/dl Lipase 473 U/L Thyroid Stimulating Hormone (TSH) 2.680 uIu/ml Hepatitis C Antibody NEG Urine Color YELLOW Urine Appearance CLEAR Urine pH 5.5 Urine Specific [place] 1.008 Urine Protein NEG Urine Glucose (UA) NEG Urine Ketones NEG Urine Occult Blood NEG Urine Nitrite NEG Urine Bilirubin NEG Urine Urobilinogen NEG Urine Leukocyte Esterase NEG Globulin 2.7 gm/dl Albumin/Globulin Ratio 1.2 (Shanon Quintero, SANJIV-C) Assessment and Plan ANASARCA probable secondary to CHF Pt received 2 dose lasix 40mg IV and has had 2650ml urine output since with decreased BLE edema & scrotal/suprapubic edema. BNP: 6177 from 7742 yesterday. Troponin: 0.028, 0.033 12/07/17 U/S ABDOMEN: Impression diffusely increased echogenicity of the liver. Nonspecific finding. Fatty infiltration is a consideration, other diffuse hepatocellular processes. No sonographic evidence of cholelithiasis, cholecystitis or biliary ductal dilation. Limited evaluation of pancreas. Normal right kidney. Right pleural effusion. CXR: 1. Left midlung atelectasis or scarring with left basilar infiltrate. Pneumonia is not excluded. 2. Left pleural effusion. -echo pending -monitor I&O's and daily weight -low sodium diet, fluid restriction 1500ml -lasix 40mg IV BID -cardiology consult, appreciate recommendations -CBC, electrolytes in am SCROTAL EDEMA BILATERAL HYDROCELES Probable significant scrotal edema secondary to fluid overload UA negative 12/07/17 - U/S SCROTUM/TESTES: Impression: No evidence of injury testicular mass or torsion. Normal epididymis. Large bilateral hydrocele and edema of the scrotal wall. -Pt with less edema today after diuresis -monitor -consider urology out patient follow up PERICARDIAL EFFUSION small pericardial effusion noted on CT abd/pelvis -echo pending -cardiology consult PLEURAL EFFUSIONS COUGH BILATERAL CONSOLIDATION LOWER LOBES - doxycycline -incentive spirometry -repeat CXR tomorrow am HTN Pt initially hypertensive In ER. Receiving lasix 40mg IV BID and BP's since been stable -Lasix 40mg IV BID -monitor ELEVATED LIVER FUNCTIONS Today Total bilirubin: 1.2 from 1.3, direct bilirubin: 0.4, AST: 28 from 39, ALT : 59 from 69, Alk Phos: 85. Albumin 3.3 from 3.6. Coags WNL yesterday. 12/07/17 - U/S ABDOMEN: Impression diffusely increased echogenicity of the liver. Nonspecific finding. Fatty infiltration is a consideration, other diffuse hepatocellular processes. No sonographic evidence of cholelithiasis, cholecystitis or biliary ductal dilation. Limited evaluation of pancreas. Normal right kidney. Right pleural effusion. CT ABDOMEN PELVIS: 1. Bilateral inguinal hernias, right greater than left. The right inguinal hernia contains small bowel and fluid. No bowel obstruction. 2. Volume overload evidenced by small to moderate bilateral pleural effusions, trace ascites and diffuse body wall edema. 3. Cardiomegaly. 4. Diverticulosis. No evidence of diverticulitis. -Hep C antibody negative, pending remaining acute hepatitis panel -GI consult - appreciate recommendations ETOH ABUSE drinks 4 beers daily. Last drink reported 2 days ago -alcohol withdrawal protocol -thiamine, folic acid, multivitamin daily QTC PROLONGATION QTc: 482 -avoid QTc prolonging agents DVT Prophylaxis -lovenox Admitted tele Full Code as per discussion with pt Follows with Dr Reno for routine care Pt was seen with Dr Waldrop. 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 daily Patient needs strict abstinence from alcohol Patient will need LifeVest, and possibly ICD implantation in future Close follow-up with cardiology Follow-up heart failure clinic at [facility] cardiology suite Maricruz Waldrop MD (Maricruz Waldrop M.D.)
--- NOTE | 2017-12-09 17:02 | ECHOCARDIOGRAM REPORT ---
*NOTICE TO RECEIVING REPUBLICAN AGENCY This information is strictly Confidential and protected under [place] law. [place] law prohibits you from making any further disclosure of this information unless further disclosure is expressly permitted by the written consent of the person to whom it pertains or is authorized by law. A general authorization for the release of medical or other information is not sufficient for this purpose. Hospital accepts no responsibility if the information is made available to any other person, INCLUDING THE PATIENT. Interpretation Summary * Name: EMILIA LAINEZ Study Date: 12/09/2017 07:03 AM BP: 109/90 mmHg * Patient Location: C.2E\S\E208\S\1 HR: 86 * : 1945 (M/d/yyyy) Gender: Male Height: 73 in * Age: 72 yrs Ethnicity: [place] Weight: 220 lb * Ordering Physician: Shanon Quintero * Referring Physician: Self, Referred * Performed By: Destiny Zepeda RCS * * Reason For Study: FLUID OVERLOAD / PERICARDIAL EFFUSION * BSA: 2.2 m2 * The study was technically adequate. * There is no comparison study available. * -- Conclusions -- * Left ventricular systolic function is severely reduced. * Ejection Fraction = 15-20%. * There is severe global hypokinesis of the left ventricle. * The right ventricle is moderately dilated. * The right ventricular systolic function is moderate to severely reduced. * Severe biatrial enlargement. * Small circumferential pericardial effusion with a moderate volume of fluid loculated posteriorly. * There are no echocardiographic indications of cardiac tamponade. * Moderate size left pleural effusion. Procedure Details * A complete two-dimensional transthoracic echocardiogram was performed (2D, M-mode, Doppler and color flow Doppler). Left Ventricle * The left ventricle is normal in size. * There is no thrombus. * There is normal left ventricular wall thickness. * Left ventricular systolic function is severely reduced. * Ejection Fraction = 15-20%. * There is severe global hypokinesis of the left ventricle. Right Ventricle * The right ventricle is moderately dilated. * The right ventricular systolic function is moderate to severely reduced. Atria * The left atrium is severely dilated. * The right atrium is severely dilated. Mitral Valve * The mitral valve anatomy is normal. * There is no evidence of mitral valve prolapse. * There is no mitral valve stenosis. * Significant mitral regurgitation is absent. Tricuspid Valve * The tricuspid valve anatomy is normal. * There is no tricuspid valve prolapse. * There is no tricuspid stenosis. * There is mild tricuspid regurgitation. * Doppler findings do not suggest pulmonary hypertension. Aortic Valve * The aortic valve is trileaflet. * No hemodynamically significant valvular aortic stenosis. * There is no significant aortic regurgitation. Pulmonic Valve * The pulmonary valve is inadequately visualized, but the Doppler data is adequate for interpretation. * There is no pulmonic valvular stenosis. * Mild pulmonic valvular regurgitation. Great Vessels * The aortic root is normal size. Pericardium/Pleural * Small circumferential pericardial effusion with a moderate volume of fluid loculated posteriorly. * There are no echocardiographic indications of cardiac tamponade. * Moderate size left pleural effusion. Left Ventricular Diastolic Function * Abnormal diastolic function. MMode 2D Measurements and Calculations IVSd 1.3 cm IVSs 1.5 cm LVIDd 6.3 cm LVIDs 6.2 cm LVPWd 1.2 cm LVPWs 1.2 cm IVS/LVPW 1.0 FS 1.8 % EDV(Teich) 199.7 ml ESV(Teich) 191.8 ml EF(Teich) 4.0 % EDV(cubed) 247.7 ml ESV(cubed) 234.8 ml EF(cubed) 5.2 % % IVS thick 13.0 % % LVPW thick -0.60 % LV mass(C)d 361.7 grams LV mass(C)dI 161.4 grams/m\S\2 LV mass(C)s 382.0 grams LV mass(C)sI 170.5 grams/m\S\2 SV(Teich) 7.9 ml SI(Teich) 3.5 ml/m\S\2 SV(cubed) 12.9 ml SI(cubed) 5.8 ml/m\S\2 Ao root diam 3.1 cm Ao root area 7.8 cm\S\2 LA dimension 5.8 cm LA/Ao 1.9 LVOT diam 2.0 cm LVOT area 3.0 cm\S\2 LVAd ap4 33.2 cm\S\2 LVLd ap4 7.3 cm EDV(MOD-sp4) 124.2 ml EDV(sp4-el) 128.7 ml LVAs ap4 27.9 cm\S\2 LVLs ap4 7.3 cm ESV(MOD-sp4) 91.7 ml ESV(sp4-el) 90.7 ml EF(MOD-sp4) 26.1 % EF(sp4-el) 29.6 % LVAd ap2 35.9 cm\S\2 LVLd ap2 7.9 cm EDV(MOD-sp2) 133.7 ml EDV(sp2-el) 138.3 ml LVAs ap2 34.4 cm\S\2 LVLs ap2 8.0 cm ESV(MOD-sp2) 125.6 ml ESV(sp2-el) 126.1 ml EF(MOD-sp2) 6.1 % EF(sp2-el) 8.8 % LVLd %diff 8.2 % EDV(MOD-bp) 132.9 ml LVLs %diff 8.6 % ESV(MOD-bp) 112.5 ml EF(MOD-bp) 15.3 % SV(MOD-sp4) 32.5 ml SI(MOD-sp4) 14.5 ml/m\S\2 SV(MOD-sp2) 8.1 ml SI(MOD-sp2) 3.6 ml/m\S\2 SV(MOD-bp) 20.4 ml SI(MOD-bp) 9.1 ml/m\S\2 SV(sp4-el) 38.0 ml SI(sp4-el) 17.0 ml/m\S\2 SV(sp2-el) 12.2 ml SI(sp2-el) 5.4 ml/m\S\2 Doppler Measurements and Calculations Ao V2 max 80.6 cm/sec Ao max PG 2.6 mmHg Ao max PG (full) 0.76 mmHg FLORENCIO(V,A) 2.5 cm\S\2 FLORENCIO(V,D) 2.5 cm\S\2 LV V1 max PG 1.8 mmHg LV V1 max 67.8 cm/sec PA V2 max 71.8 cm/sec PA max PG 2.1 mmHg TR max raudel 275.9 cm/sec
[2017-12-09] MEDS ORDERED: LORAZEPAM 2 MG/ML 1 ML VIAL IV PRN (17:45)
--- NOTE | 2017-12-09 17:48 | Progress Note ---
Progress Note Date of Service Dec 09, 2017. 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 * Ejection Fraction = 15-20%. * There is severe global hypokinesis of the left ventricle. * The right ventricle is moderately dilated. * The right ventricular systolic function is moderate to severely reduced. * Severe biatrial enlargement. * Small circumferential pericardial effusion with a moderate volume of fluid loculated posteriorly. * There are no echocardiographic indications of cardiac tamponade. * Moderate size left pleural effusion. Possible due to alcoholic cardiomyopathy ? Will need ischemic workup: cardiology follow up /Cardiac cath after acute's CHF is resolved Appreciate input from cardiology Patient started with IV diuresis Lasix 40 mg every 12 hr Started on Toprol-XL 12.5 mg twice daily/losartan 12.5 mg daily, eventually plan to transition to Entresto Aldactone 25 mg p.o. 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
[2017-12-09] MEDS ORDERED: LORAZEPAM INJ 1 MG in SYRINGE 0.5 ML IV PRN (18:15)
[2017-12-09] MEDS: ENOXAPARIN 40 MG/0.4 ML SYR SC SCH (20:42)
[2017-12-09] MEDS: METOPROLOL SUCC 25MG EXT REL TAB PO SCH (20:47)
[2017-12-09] MEDS ORDERED: GABAPENTIN 600MG Q8H DOSE PO SCH (22:00)
[2017-12-10] VITALS (10 sets, daily range): BP systolic 97–124; BP diastolic 55–85; PULSE 60–91; TEMP 36.4–36.9; O2SAT 92–98
[2017-12-10 05:41] LABS: EOS % 1.3 %; EOS ABS # 0.04 K/uL (0-0.5); HEMOGLOBIN 13.3 g/dL (14.0-18.0); LYMPH % 28.9 %; LYMPH ABS # 0.86 K/uL (1.2-3.4); MEAN CELL VOLUME 100.2 fL (80-100); MEAN CORPUSCULAR HEMOGLOBIN 31.7 pg (25-34); MEAN CORPUSCULAR HGB CONC 31.7 g/dl (32-36); MEAN PLATELET VOLUME 10.3 fL (7.4-10.4); MONO % 14.4 %; MONO ABS # 0.43 K/uL (0.11-0.59); NEUT % 55.4 %; NEUT ABS # 1.65 K/uL (1.4-6.5); PLATELET COUNT 148 K/uL (130-400); RED CELL DISTRIBUTION WIDTH CV 14.5 % (11.5-14.5); RED CELL DISTRIBUTION WIDTH SD 52.7 fL (36.4-46.3); WHITE BLOOD COUNT 2.98 K/uL (4.8-10.8)
[2017-12-10 06:08] LABS: CALCIUM 8.7 mg/dl (8.5-10.1); CREATININE 1.21 mg/dl (0.60-1.40); POTASSIUM 3.7 mmol/L (3.5-5.1)
[2017-12-10] MEDS: LOSARTAN POTASSIUM 25 MG TAB PO SCH (08:02)
[2017-12-10] MEDS: FoLIC ACID TAB 400 MCG TAB PO SCH (08:03)
[2017-12-10] MEDS: METOPROLOL SUCC 25MG EXT REL TAB PO SCH ×2 (08:03→21:04)
[2017-12-10] MEDS: DOXYCYCLINE HYCLATE 100 MG CAP PO SCH (08:04)
[2017-12-10] MEDS: THIAMINE HCL 100 MG TAB PO SCH (08:04)
[2017-12-10] MEDS: MULTIVITAMIN TAB PO SCH (08:04)
--- NOTE | 2017-12-10 08:33 | DIAGNOSTIC IMAGING REPORT ---
CHEST 2 VIEWS ROUTINE CLINICAL HISTORY: Fluid overload. COMPARISON STUDY: Chest radiograph December 08, 2017. FINDINGS: There is no pneumothorax. Small bilateral pleural effusions are noted. Linear left lower lung opacity reflects atelectasis. Moderate cardiomegaly is noted. There is no evidence for pulmonary edema. Pulmonary vascular congestion shown on exam of December 08, 2017 has resolved. IMPRESSION: 1. No evidence for pulmonary edema. Resolution of pulmonary vascular congestion. 2. Small bilateral pleural effusions with linear left basilar opacities suggestive of atelectasis. Electronically signed by: Riley Malloy M.D. 12/10/2017 8:32 AM Dictated Date/Time: 12/10/2017 8:30 AM
[2017-12-10] MEDS ORDERED: FUROSEMIDE INJ 40 MG in SYRINGE 0 ML IV SCH (09:00)
--- NOTE | 2017-12-10 10:03 | Cardiology Follow-Up ---
Subjective General Date of Service: Dec 10, 2017. Chief Complaint: Heart failure Pt evaluation today including: conversation w/ patient, physical exam, chart review, lab review, review of studies, review of inpatient medication list History of Present Illness Feeling better. Less cough. Less scrotal edema. Improved bilateral lower extremity peripheral edema. No PND last night. Recorded I/O's are negative 4,105 mL's overall. Patient notes about 1.5 to 2 Liters of additional output that was not recorded. Telemetry: Sinus with frequent PVC's. Nonsustained ventricular tachycardia 3, 6 , and 7 beats in duration. EKG this morning reveals sinus rhythm at 89 bpm with frequent premature ventricular complexes, left axis deviation, incomplete left bundle block, nonspecific T wave abnormality. QRS duration 120. QTc 472 ms. December 09, 2017 TTE Interpretation Summary ([facility], Dr. Dickerson): Left ventricular systolic function is severely reduced. Ejection Fraction = 15-20%. There is severe global hypokinesis of the left ventricle. The right ventricle is moderately dilated. The right ventricular systolic function is moderate to severely reduced. Severe biatrial enlargement. Small circumferential pericardial effusion with a moderate volume of fluid loculated posteriorly. There are no echocardiographic indications of cardiac tamponade. Moderate size left pleural effusion. Allergies Coded Allergies: No Known Allergies (Unverified , 12/08/17) Social History Hx Tobacco Use In Past Year?: Yes Hx Alcohol Use - Type And Amou: Yes (3-4 beers/day) Hx Substance Use - Type And Am: No Problem List Medical Problems: (1) Abnormal EKG Status: Acute (2) Anasarca Status: Acute (3) Ascites Status: Acute (4) Bilateral pleural effusion Status: Acute Review of Systems Respiratory: + dyspnea on exertion, No cough, No sputum, No wheezing, No shortness of breath, No dyspnea at rest, No hemoptysis Cardiac: + edema, No chest pain, No orthopnea, No PND, No claudication, No palpitations Physical Exam Vital Signs Last Vital Signs Documentation Date Time Temp Pulse Resp B/P (MAP) Pulse Ox O2 Delivery O2 Flow Rate FiO2 12/10/17 08:00 94 Room Air 12/10/17 07:08 36.7 60 17 124/71 (88) Physical Exam Constitutional: Level of Distress: NAD Psychiatric: Mental Status: active & alert Orientation: to time, to place, to person Memory: recent memory normal, remote memory normal Head: normocephalic, atraumatic Eyes: EOM: EOMI Neck: pertinent finding (+JVD. +HJR) Lungs: Auscultation: no wheezing, no rhonchi, decreased breath sounds, rales/ crackles on the left Cardiovascular: Heart Auscultation: no rubs, II/ COTY, irregular rate rhythm Peripheral Pulses: Carotid Pulse: normal on the left, normal on the right Dorsalis Pedis Pulse: normal on the left, normal on the right Abdomen: Bowel Sounds: normal Inspection & Palpation: soft Liver: hepatomegaly Musculoskeletal: normal Extremities: no cyanosis, no clubbing, edema (Minimal peripheral edema) Neurologic: Cranial Nerves: grossly intact Assessment and Plan Assessment and Plan New onset acute decompensated systolic congestive heart failure signs and symptoms with severe reduction in left ventricular systolic function, EF 15-20%. [place] Heart Association Class III symptomatology EKG with an incomplete left bundle branch block with narrow QRS duration RECOMMENDATIONS/PLAN: Increase Toprol XL to 25 mg twice a day Decrease IV furosemide to 40 mg daily, holding in the morning until seen. Basic metabolic panel in morning of 12/11/2017. Continue telemetry monitoring without interruption Diagnostic cardiac catheterization once compensated Wearable cardioverter-defibrillator (LifeVest) medical order form completed this morning. Possible future ICD implantation briefly discussed. Patient to abstain from all alcohol. Cardiology Attending Physician: Patient seen and examined at the bedside. Edema improving. Nonsustained ventricular tachycardia recorded on telemetry. Mild increase of creatinine this a.m. Patient states he feels better today. PE: VSS. Gen: NAD. AAO x3. Heart: Regular, normal S1, S2. 1/6 systolic murmur heard best at left ventricular apex. Lungs demonstrate diminished breath sounds at the bases bilateral. Abdomen soft nontender no rebound or guarding. Extremities demonstrate +1 bilateral pretibial edema. A/P: Agree with above PA-C history, physical exam, assessment and plan. Beta- kel will be titrated and Lasix will remain on hold until review of a.m. lab studies. Continue to monitor telemetry. Replace electrolytes as indicated. Ischemic evaluation when compensated. Juice Bright DO, [facility] Laboratory Results Last 24 Hours Test 12/09/17 11:18 12/10/17 05:21 Iron Level 43 mcg/dl Total Iron Binding Capacity 387 mcg/dl Transferrin 300 mg/dl Transferrin % Saturation 10 % White Blood Count 2.98 K/uL Red Blood Count 4.19 M/uL Hemoglobin 13.3 g/dL Hematocrit 42.0 % Mean Corpuscular Volume 100.2 fL Mean Corpuscular Hemoglobin 31.7 pg Mean Corpuscular Hemoglobin Concent 31.7 g/dl Platelet Count 148 K/uL Mean Platelet Volume 10.3 fL Neutrophils (%) (Auto) 55.4 % Lymphocytes (%) (Auto) 28.9 % Monocytes (%) (Auto) 14.4 % Eosinophils (%) (Auto) 1.3 % Basophils (%) (Auto) 0.0 % Neutrophils # (Auto) 1.65 K/uL Lymphocytes # (Auto) 0.86 K/uL Monocytes # (Auto) 0.43 K/uL Eosinophils # (Auto) 0.04 K/uL Basophils # (Auto) 0.00 K/uL RDW Standard Deviation 52.7 fL RDW Coefficient of Variation 14.5 % Immature Granulocyte % (Auto) 0.0 % Immature Granulocyte # (Auto) 0.00 K/uL Sodium Level 140 mmol/L Potassium Level 3.7 mmol/L Chloride Level 104 mmol/L Carbon Dioxide Level 31 mmol/L Anion Gap 5.0 mmol/L Blood Urea Nitrogen 23 mg/dl Creatinine 1.21 mg/dl Est Creatinine Clear Calc Drug Dose 76.3 ml/min Estimated GFR () 69.4 Estimated GFR (Non- 59.9 BUN/Creatinine Ratio 19.2 Random Glucose 94 mg/dl Calcium Level 8.7 mg/dl Lipase 176 U/L
--- NOTE | 2017-12-10 10:22 | Clinical Documentation Query ---
Dr. PATEL [facility]ULTMAN [facility] : CLINICAL DOCUMENTATION QUERY H&P noted cough, bilateral consolidation of lower lobes of the lungs. Differential stated "infectious vs fluid overload". Patient has been maintained on Doxycycline in this setting, with incentive spirometry and repeat chest radiograph. Subsequent documentation has included "bilateral consolidation lower lobes". As appropriate, In your clinical opinion is this patient being managed for: ( ) (Possible) Pneumonia ( x ) Not Agree ( ) Other explanation of clinical findings (No explanation is considered a No Response) ( ) Unable to determine ( ) Need to Discuss (Phone CDS or qliq) (No discussion is considered a No Response) Chest xray suggestive of Atelectasis No evidence of infection or pneumonia Doxycycline D/winsome Tx The medical record reflects the following clinical findings, treatment, and risk factors. Clinical Indicators: As above Treatment: Doxycycline, incentive spirometry, chest radiograph Risk Factors: Please clarify and document your clinical opinion in the progress notes and discharge summary. Terms such as "probable", "suspected", "likely", "questionable", "possible", or "still to be ruled out" are acceptable. IF IN AGREEMENT, YOU MUST DOCUMENT ABOVE DIAGNOSTIC STATEMENT IN DAILY PROGRESS NOTES AND DISCHARGE SUMMARY. This document is not part of the patient's record. Thank You, Nathan Ruby, RN [phone]
--- NOTE | 2017-12-10 13:37 | Hospitalist Progress Note ---
Hospitalist Progress Note Date of Service Dec 10, 2017. (Shanon Quintero PA-C) Subjective Pt evaluation today including: conversation w/ patient, physical exam, chart review, lab review, review of studies Pt seen and examined, sitting in bedside chair. States feeling a little better today. Continuing to diurese, has had 5 L urine output,pt reports has urinated more that hasn't been recorded also. Edema still present but has less scrotal edema and lower extremity edema. Reports decreased cough. Pt denies any dizziness/NOEL today. Denies CP, palpitations, SOB. (Shanon Quintero PA-C) Medications Medications (Trade) Dose Ordered Sig/Ebenezer Route Start Time Stop Time Status Last Admin Dose Admin Metoprolol Succinate (Toprol Xl Tab) 12.5 mg BID PO 12/09/17 21:00 12/10/17 10:05 DC 12/10/17 08:03 12.5 MG Losartan Potassium (coZAAR TAB) 12.5 mg QAM PO 12/10/17 09:00 01/09/18 08:59 12/10/17 08:02 12.5 MG (Shanon Quintero PA-C) Objective Vital Signs Date Time Temp Pulse Resp B/P (MAP) Pulse Ox O2 Delivery O2 Flow Rate FiO2 12/10/17 08:00 94 Room Air 12/10/17 07:08 36.7 60 17 124/71 (88) 92 Room Air 12/10/17 04:07 36.4 75 16 107/81 (90) 93 Room Air 12/09/17 23:54 37.0 80 16 99/75 (83) 92 Room Air 12/09/17 20:42 Room Air 12/09/17 20:05 36.7 97 18 103/82 (89) 97 Room Air 12/09/17 17:19 36.6 75 18 117/83 (94) 95 Room Air 12/09/17 16:00 94 Room Air 12/09/17 16:00 97 12/09/17 12:24 36.4 83 18 123/91 (102) 93 Room Air 12/09/17 12:00 94 Room Air 12/09/17 12:00 75 (Shanon Quintero PA-C) Laboratory Results Last 24 Hours Test 12/09/17 11:18 12/10/17 05:21 Iron Level 43 mcg/dl Total Iron Binding Capacity 387 mcg/dl Transferrin 300 mg/dl Transferrin % Saturation 10 % White Blood Count 2.98 K/uL Red Blood Count 4.19 M/uL Hemoglobin 13.3 g/dL Hematocrit 42.0 % Mean Corpuscular Volume 100.2 fL Mean Corpuscular Hemoglobin 31.7 pg Mean Corpuscular Hemoglobin Concent 31.7 g/dl Platelet Count 148 K/uL Mean Platelet Volume 10.3 fL Neutrophils (%) (Auto) 55.4 % Lymphocytes (%) (Auto) 28.9 % Monocytes (%) (Auto) 14.4 % Eosinophils (%) (Auto) 1.3 % Basophils (%) (Auto) 0.0 % Neutrophils # (Auto) 1.65 K/uL Lymphocytes # (Auto) 0.86 K/uL Monocytes # (Auto) 0.43 K/uL Eosinophils # (Auto) 0.04 K/uL Basophils # (Auto) 0.00 K/uL RDW Standard Deviation 52.7 fL RDW Coefficient of Variation 14.5 % Immature Granulocyte % (Auto) 0.0 % Immature Granulocyte # (Auto) 0.00 K/uL Sodium Level 140 mmol/L Potassium Level 3.7 mmol/L Chloride Level 104 mmol/L Carbon Dioxide Level 31 mmol/L Anion Gap 5.0 mmol/L Blood Urea Nitrogen 23 mg/dl Creatinine 1.21 mg/dl Est Creatinine Clear Calc Drug Dose 76.3 ml/min Estimated GFR () 69.4 Estimated GFR (Non- 59.9 BUN/Creatinine Ratio 19.2 Random Glucose 94 mg/dl Calcium Level 8.7 mg/dl Lipase 176 U/L (Shanon Quintero PA-C) Assessment and Plan ANASARCA ACUTE SYSTOLIC CHF Echo: * Left ventricular systolic function is severely reduced. * Ejection Fraction = 15-20%. * There is severe global hypokinesis of the left ventricle. * The right ventricle is moderately dilated. * The right ventricular systolic function is moderate to severely reduced. * Severe biatrial enlargement. * Small circumferential pericardial effusion with a moderate volume of fluid loculated posteriorly. * There are no echocardiographic indications of cardiac tamponade. * Moderate size left pleural effusion. -Pt with decreased BLE edema and scrotal edema, cough. No PND last night -Has diuresed approximate 5L today since admission. -Last dose IV lasix yesterday evening -monitor I&O's and daily weight -low sodium diet, fluid restriction 1500ml -today CXR:1. No evidence for pulmonary edema. Resolution of pulmonary vascular congestion. 2. Small bilateral pleural effusions with linear left basilar opacities suggestive of atelectasis. -monitor electrolytes -PT/OT eval -Appreciate Cardiology recommendations: Increase Toprol XL to 25 mg twice a day losartan 12.5 mg daily, eventually plan to transition to Entresto Aldactone 25 mg p.o. daily Decrease IV furosemide to 40 mg daily, holding in the morning until seen. Diagnostic cardiac catheterization once compensated Wearable cardioverter-defibrillator (LifeVest) medical order form completed this morning. Possible future ICD implantation briefly discussed. BILATERAL HYDROCELES SCROTAL EDEMA Probable significant scrotal edema secondary to fluid overload UA negative 12/07/17 - U/S SCROTUM/TESTES: Impression: No evidence of injury testicular mass or torsion. Normal epididymis. Large bilateral hydrocele and edema of the scrotal wall. -Pt with less edema after diuresis -monitor -consider urology out patient follow up PERICARDIAL EFFUSION Echo: * Small circumferential pericardial effusion with a moderate volume of fluid loculated posteriorly. * There are no echocardiographic indications of cardiac tamponade. -cardiology consult PLEURAL EFFUSIONS COUGH Today CXR: 1. No evidence for pulmonary edema. Resolution of pulmonary vascular congestion. 2. Small bilateral pleural effusions with linear left basilar opacities suggestive of atelectasis. -will doxycycline at this time as appears cough from fluid overload and opacity atelectasis -incentive spirometry HTN -Increase Toprol XL to 25 mg twice a day per cardiology recommendations -losartan 12.5 mg daily, eventually plan to transition to Entresto -Aldactone 25 mg p.o. daily ELEVATED LIVER FUNCTIONS Total bilirubin: 1.2, direct bilirubin: 0.4, AST: 28, ALT: 59 Alk Phos: 85. Albumin 3.3. Normal plt, Normal INR, BUN/Cr. CT ABD/PELVIS: normal appearing liver with patent vasculature. -Hep C antibody negative, pending remaining acute hepatitis panel -GI consult - No indication for further liver disease workup at this time -monitor liver functions ETOH ABUSE drinks 4 beers daily. -alcohol withdrawal protocol - Gabapentin discontinued as no signs of withdrawal. Ativan prn -thiamine, folic acid, multivitamin daily -pt to have strict alcohol restriction QTC PROLONGATION QTc: 472 today -avoid QTc prolonging agents DVT Prophylaxis -lovenox Admitted tele Full Code as per discussion with pt Disposition uncertain at this time, anticipate couple more days inpatient volunteer services specialist for assistance with discharge Follows with Dr Reno for routine care Pt was seen with Dr Waldrop. See addendum (Shanon Quintero PA-C) ATTENDING ADDENDUM Patient continued to diuresis aggressively -With approximately 5 L negative balance -Appreciate input from cardiology Continue to monitor volume status Severe cardiomyopathy with systolic dysfunction Will need arrangement for LifeVest prior to discharge Close follow-up with cardiology/CHF in clinic as an outpatient-for further cardiac workup and CHF management Please refer to further documentation by Barbara Quintero PA-C for discussion of other chronic issues Maricruz Waldrop MD (Maricruz Waldrop M.D.)
[2017-12-10] MEDS: ENOXAPARIN 40 MG/0.4 ML SYR SC SCH (19:59)
[2017-12-11] VITALS (8 sets, daily range): BP systolic 102–129; BP diastolic 72–94; PULSE 78–103; TEMP 36.5–37; O2SAT 92–98
[2017-12-11] MEDS ORDERED: GABAPENTIN 600MG Q12H DOSE PO SCH
[2017-12-11 04:35] LABS: HEPATITIS A IGM TC 51813E NON-REACTIVE (NON-REACTIVE); HEPATITIS B CORE IGM TC51854R NON-REACTIVE (NON-REACTIVE); HEPATITIS BE ANTIBODY TC 556 Nonreactive; HEPATITIS BE ANTIGEN TC 555 Nonreactive
[2017-12-11 06:45] LABS: HEMATOCRIT 43.3 % (42-52); MEAN CORPUSCULAR HEMOGLOBIN 32.3 pg (25-34); MEAN CORPUSCULAR HGB CONC 32.3 g/dl (32-36); MEAN PLATELET VOLUME 10.9 fL (7.4-10.4); PLATELET COUNT 166 K/uL (130-400); RED CELL DISTRIBUTION WIDTH CV 14.3 % (11.5-14.5); WHITE BLOOD COUNT 3.48 K/uL (4.8-10.8)
[2017-12-11 07:12] LABS: ALBUMIN 3.3 gm/dl (3.4-5.0); CALCIUM 8.8 mg/dl (8.5-10.1); CREATININE 1.1 mg/dl (0.60-1.40); POTASSIUM 3.8 mmol/L (3.5-5.1)
[2017-12-11] MEDS ORDERED: LORAZEPAM 2 MG/ML 1 ML VIAL IV PRN (07:30)
[2017-12-11] MEDS: LOSARTAN POTASSIUM 25 MG TAB PO SCH (08:27)
[2017-12-11] MEDS: THIAMINE HCL 100 MG TAB PO SCH (08:28)
[2017-12-11] MEDS: MULTIVITAMIN TAB PO SCH (08:28)
[2017-12-11] MEDS: SPIRONOLACTONE 25 MG TAB PO SCH ×2 (08:28→09:00)
[2017-12-11] MEDS: METOPROLOL SUCC 25MG EXT REL TAB PO SCH ×2 (08:28→21:06)
[2017-12-11] MEDS: FoLIC ACID TAB 400 MCG TAB PO SCH (08:28)
--- NOTE | 2017-12-11 09:41 | Cardiology Follow-Up ---
Subjective General Date of Service: Dec 11, 2017. Chief Complaint: Heart failure Pt evaluation today including: conversation w/ patient, physical exam, chart review, lab review, review of studies, review of inpatient medication list History of Present Illness Didn't sleep well last night. + PND. Scrotal edema continues to improve. No chest pain. No palpitations. No lower extremity peripheral edema. Telemetry: Sinus with frequent PVC's. No further nonsustained ventricular tachycardia since titration of Toprol XL. December 09, 2017 TTE Interpretation Summary ([facility], Dr. Dickerson): Left ventricular systolic function is severely reduced. Ejection Fraction = 15-20%. There is severe global hypokinesis of the left ventricle. The right ventricle is moderately dilated. The right ventricular systolic function is moderate to severely reduced. Severe biatrial enlargement. Small circumferential pericardial effusion with a moderate volume of fluid loculated posteriorly. There are no echocardiographic indications of cardiac tamponade. Moderate size left pleural effusion. Allergies Coded Allergies: No Known Allergies (Unverified , 12/08/17) Social History Hx Tobacco Use In Past Year?: Yes Hx Alcohol Use - Type And Amou: Yes (3-4 beers/day) Hx Substance Use - Type And Am: No Problem List Medical Problems: (1) Abnormal EKG Status: Acute (2) Anasarca Status: Acute (3) Ascites Status: Acute (4) Bilateral pleural effusion Status: Acute Review of Systems Respiratory: + shortness of breath, + dyspnea on exertion, No cough, No sputum , No wheezing, No dyspnea at rest, No hemoptysis Cardiac: + edema, No chest pain, No orthopnea, No PND, No claudication, No palpitations Physical Exam Vital Signs Last Vital Signs Documentation Date Time Temp Pulse Resp B/P (MAP) Pulse Ox O2 Delivery O2 Flow Rate FiO2 12/11/17 07:52 36.5 90 22 120/94 (103) 95 Room Air Physical Exam Constitutional: Level of Distress: NAD Psychiatric: Mental Status: active & alert Orientation: to time, to place, to person Memory: recent memory normal, remote memory normal Head: normocephalic, atraumatic Eyes: EOM: EOMI Neck: pertinent finding (+JVD. +HJR) Lungs: Auscultation: no wheezing, no rhonchi, decreased breath sounds, rales/ crackles on the left Cardiovascular: Heart Auscultation: no rubs, II/ COTY, irregular rate rhythm Peripheral Pulses: Carotid Pulse: normal on the left, normal on the right Dorsalis Pedis Pulse: normal on the left, normal on the right Abdomen: Bowel Sounds: normal Inspection & Palpation: soft Liver: hepatomegaly Musculoskeletal: normal Extremities: no cyanosis, no edema, no clubbing, pertinent finding (+scrotal edema) Neurologic: Cranial Nerves: grossly intact Assessment and Plan Assessment and Plan New onset acute decompensated systolic congestive heart failure secondary to severe reduction in left ventricular systolic function, EF 15-20%. [place] Heart Association Class III Left bundle branch block pattern with narrow QRS duration RECOMMENDATIONS/PLAN: Low dose IV furosemide today then transition to oral furosemide in the morning of 12/12/2017 Continue Toprol XL, Losartan, and spironolactone. Titrate evidence based heart failure medications as tolerated. Add ASA 81 mg/day Wearable cardioverter-defibrillator (LifeVest) on discharge Outpatient diagnostic cardiac catheterization Patient to abstain from all alcohol. Hospital discharge follow-up with the undersigned ~1 week post discharge ( office aware, will call patient Thursday) Possible future ICD implantation discussed. Resting echocardiogram in three months (2nd week of March) Cardiology Attending Physician: Patient seen and examined at the bedside. Edema improving. No recurrent ventricular tachycardia on telemetry. Creatinine trending downward today. Patient respiratory status improved. Scrotal edema improving. PE: VSS. Gen: NAD. AAO x3. Heart: Regular, normal S1, S2. 1/6 systolic murmur heard best at left ventricular apex. Lungs demonstrate diminished breath sounds at the bases bilateral. Abdomen soft nontender no rebound or guarding. Extremities demonstrate +1 bilateral pretibial edema. +Scrotal edema. A/P: Agree with above PA-C history, physical exam, assessment and plan. Continue evidence-based heart failure therapy as outlined above. Patient fitted for wearable cardio defibrillator, LifeVest, today. Repeat BMP in a.m. Follow telemetry. Juice Bright DO, [facility] Laboratory Results Last 24 Hours Test 12/11/17 06:04 White Blood Count 3.48 K/uL Red Blood Count 4.33 M/uL Hemoglobin 14.0 g/dL Hematocrit 43.3 % Mean Corpuscular Volume 100.0 fL Mean Corpuscular Hemoglobin 32.3 pg Mean Corpuscular Hemoglobin Concent 32.3 g/dl RDW Standard Deviation 52.0 fL RDW Coefficient of Variation 14.3 % Platelet Count 166 K/uL Mean Platelet Volume 10.9 fL Sodium Level 141 mmol/L Potassium Level 3.8 mmol/L Chloride Level 103 mmol/L Carbon Dioxide Level 32 mmol/L Anion Gap 6.0 mmol/L Blood Urea Nitrogen 29 mg/dl Creatinine 1.10 mg/dl Est Creatinine Clear Calc Drug Dose 81.0 ml/min Estimated GFR () 77.9 Estimated GFR (Non- 67.2 BUN/Creatinine Ratio 26.2 Random Glucose 100 mg/dl Calcium Level 8.8 mg/dl Magnesium Level 2.1 mg/dl Total Bilirubin 1.1 mg/dl Direct Bilirubin 0.3 mg/dl Aspartate Amino Transf (AST/SGOT) 21 U/L Alanine Aminotransferase (ALT/SGPT) 44 U/L Alkaline Phosphatase 74 U/L Total Protein 6.0 gm/dl Albumin 3.3 gm/dl Globulin 2.7 gm/dl Albumin/Globulin Ratio 1.2
[2017-12-11] MEDS ORDERED: FUROSEMIDE INJ 20 MG in SYRINGE 0 ML IV ONE (09:45)
--- NOTE | 2017-12-11 10:38 | Hospitalist Progress Note ---
Hospitalist Progress Note Date of Service Dec 11, 2017. (Shanon Quintero, JULIAC) Subjective Pt evaluation today including: conversation w/ patient, physical exam, chart review, lab review, review of studies, review of inpatient medication list Pt seen and examined. Sitting up reading book on edge of bed. Reports continued improvement with less scrotal/suprapubic edema, still some edema of extremities. Prefers sleeping with HOB elevated. States had trouble falling asleep and staying asleep last night. Pt feels it may be secondary to change in his typical routine and being in hospital. He is unsure if had PND last night. Denies SOB, CP. Pt reports has not been measuring all urine output, as when he has visitors he urinates in toilet. This am reports 2 loose BM's. States had some nausea in morning, ate breakfast without increased nausea and no vomiting. Denies abdominal pain, melena, hematochezia. Pt is inquiring when can be discharged. (Shanon Quintero PA-C) Objective Vital Signs Date Time Temp Pulse Resp B/P (MAP) Pulse Ox O2 Delivery O2 Flow Rate FiO2 12/11/17 07:52 36.5 90 22 120/94 (103) 95 Room Air 12/11/17 03:42 36.7 78 102/72 (82) 92 Room Air 12/10/17 23:42 36.7 78 20 105/57 (73) 98 Room Air 12/10/17 21:03 91 102/55 (71) 12/10/17 20:00 99/81 (87) 12/10/17 19:59 Room Air 12/10/17 19:05 36.9 75 18 97/67 (77) 96 Room Air 12/10/17 16:00 94 Room Air 12/10/17 15:49 36.4 85 18 116/85 (95) 95 Room Air 12/10/17 11:00 36.6 85 16 104/71 (82) 96 Room Air (Shanon Quintero, JULIAC) Physical Exam General Appearance: WD/WN, no apparent distress Eyes: normal inspection, sclerae normal ENT: hearing grossly normal, pharynx normal, + pertinent finding (mucous membranes moist) Neck: supple, trachea midline Respiratory/Chest: no respiratory distress, no accessory muscle use, + pertinent finding (some decreased breath sounds at bases) Cardiovascular: + systolic murmur, + pertinent finding (irregular) Abdomen: normal bowel sounds, non tender, soft, + pertinent finding Extremities: non-tender, normal capillary refill, + pedal edema (1+ BLE) Neurologic/Psychiatric: alert, normal mood/affect (Shanon Quintero, SANJIV-C) Laboratory Results Last 24 Hours Test 12/11/17 06:04 White Blood Count 3.48 K/uL Red Blood Count 4.33 M/uL Hemoglobin 14.0 g/dL Hematocrit 43.3 % Mean Corpuscular Volume 100.0 fL Mean Corpuscular Hemoglobin 32.3 pg Mean Corpuscular Hemoglobin Concent 32.3 g/dl RDW Standard Deviation 52.0 fL RDW Coefficient of Variation 14.3 % Platelet Count 166 K/uL Mean Platelet Volume 10.9 fL Sodium Level 141 mmol/L Potassium Level 3.8 mmol/L Chloride Level 103 mmol/L Carbon Dioxide Level 32 mmol/L Anion Gap 6.0 mmol/L Blood Urea Nitrogen 29 mg/dl Creatinine 1.10 mg/dl Est Creatinine Clear Calc Drug Dose 81.0 ml/min Estimated GFR () 77.9 Estimated GFR (Non- 67.2 BUN/Creatinine Ratio 26.2 Random Glucose 100 mg/dl Calcium Level 8.8 mg/dl Magnesium Level 2.1 mg/dl Total Bilirubin 1.1 mg/dl Direct Bilirubin 0.3 mg/dl Aspartate Amino Transf (AST/SGOT) 21 U/L Alanine Aminotransferase (ALT/SGPT) 44 U/L Alkaline Phosphatase 74 U/L Total Protein 6.0 gm/dl Albumin 3.3 gm/dl Globulin 2.7 gm/dl Albumin/Globulin Ratio 1.2 (Shanon Quintero, PA-C) Assessment and Plan ANASARCA CARDIOMYOPATHY/ACUTE SYSTOLIC CHF Echo: * Left ventricular systolic function is severely reduced. * Ejection Fraction = 15-20%. * There is severe global hypokinesis of the left ventricle. * The right ventricle is moderately dilated. * The right ventricular systolic function is moderate to severely reduced. * Severe biatrial enlargement. * Small circumferential pericardial effusion with a moderate volume of fluid loculated posteriorly. * There are no echocardiographic indications of cardiac tamponade. * Moderate size left pleural effusion. -Pt with decreased BLE edema and scrotal edema, & cough. No PND 2 nights ago, was unsure if any last night as reports had trouble falling asleep and sleeping. Pt weight down 2.4kg from admission. -Has continued to diurese, pt had not been collecting all urine output. negative 4L balance -IV lasix once daily, with plan to transition to oral lasix as per further cardiology recommendations -monitor I&O's and daily weight -low sodium diet, fluid restriction 1500ml -recent CXR: No evidence for pulmonary edema. Resolution of pulmonary vascular congestion. Small bilateral pleural effusions with linear left basilar opacities suggestive of atelectasis. -continue to monitor electrolytes -PT/OT eval -Appreciate Cardiology recommendations: Toprol XL 25 mg twice a day losartan 12.5 mg daily, eventually plan to transition to Entresto Aldactone 25 mg p.o. daily ASA 81mg daily Outpatient Diagnostic cardiac catheterization once compensated Wearable cardioverter-defibrillator (LifeVest) upon discharge Possible future ICD implantation BILATERAL HYDROCELES SCROTAL EDEMA Probable significant scrotal edema secondary to fluid overload UA negative 12/07/17 - U/S SCROTUM/TESTES: Impression: No evidence of injury testicular mass or torsion. Normal epididymis. Large bilateral hydrocele and edema of the scrotal wall. -Pt with significant less edema after diuresis -consider urology out patient follow up PERICARDIAL EFFUSION Echo: * Small circumferential pericardial effusion with a moderate volume of fluid loculated posteriorly. * There are no echocardiographic indications of cardiac tamponade. -cardiology consult PLEURAL EFFUSIONS COUGH Most recent CXR: No evidence for pulmonary edema. Resolution of pulmonary vascular congestion. Small bilateral pleural effusions with linear left basilar opacities suggestive of atelectasis. -Initially treated with doxycycline for possible pneumonia, however was discontinued yesterday as more likely fluid overload/atelectasis -incentive spirometry HTN -Toprol XL 25 mg twice a day -losartan 12.5 mg daily -Aldactone 25 mg p.o. daily ELEVATED LIVER FUNCTIONS Overall improved liver functions with normal AST, ALT, alk phos. Tbili: 1.1. Normal Plt, INR CT ABD/PELVIS: normal appearing liver with patent vasculature. -Hep C antibody negative, non-reactive -GI consult - No indication for further liver disease workup at this time -monitor liver functions ETOH ABUSE drinks 4 beers daily. -alcohol withdrawal protocol - Gabapentin was discontinued as no signs of withdrawal. Ativan prn -thiamine, folic acid, multivitamin daily -pt to have strict alcohol restriction QTC PROLONGATION QTc: 472 today -avoid QTc prolonging agents DVT Prophylaxis -lovenox Admitted tele Full Code as per discussion with pt Disposition uncertain at this time, anticipate discharge when pt tolerating po diuretics Close follow up with cardiology Follows with Dr Reno for routine care Pt was seen with Dr Waldrop. See addendum (Shanon Quintero .HERNÁN) ATTENDING ADDENDUM Patient seen and examined care coordinated with Shanon Quintero PA-C Labs and images reviewed Denies of any shortness of breath, orthopnea, lower extremity edema, ascites has improved markedly, patient diuresed approximately 5 L fluid since admission LifeVest/Zoll vest ordered, delivered to patient's bedside Patient reports he did not get adequate teaching from the applications sales representative Not sure how to operate, use the vest Zoll applications sales representative updated, they will be here at [facility] tomorrow morning, the teaching of life asked to the patient Medication adjusted for the patient Appreciate input from cardiology Patient will be discharged on Lasix 40 mg p.o. daily Toprol-XL, losartan, Aldactone Aspirin 81 mg daily Toprol cardioverter/defibrillator-LifeVest Outpatient follow-up scheduled with cardiology Have a repeat echocardiogram done in 3 months -to assess LV function May need ICD placement if left ventricular systolic function remains significantly compromised Plan to discharge patient home tomorrow 12/12/2017 after LifeVest teaching by the representatives Please refer to further recommendation by Shanon mcclellan PA-C for discussion of other chronic issues Maricruz Waldrop MD (Maricruz Waldrop M.D.)
[2017-12-11] MEDS ORDERED: THIA100T10 PO (12:47)
[2017-12-11] MEDS ORDERED: TPRSR25 PO (12:47)
[2017-12-11] MEDS ORDERED: SPIR25TA6 PO (12:47)
[2017-12-11] MEDS ORDERED: FLV400 PO (12:47)
[2017-12-11] MEDS ORDERED: CZR25 PO (12:47)
[2017-12-11] MEDS ORDERED: LSX40 PO (12:47)
[2017-12-11] MEDS ORDERED: ASPI-461 PO (12:47)
--- NOTE | 2017-12-11 12:51 | Discharge Instructions ---
Discharge Instructions Date of Service Dec 11, 2017. Admission Reason for Admission: Anasarca Discharge Discharge Diagnosis / Problem: CONGESTIVE HEART FAILURE WITH SEVERE SYSTOLIC DYSFUNCITON Discharge Goals Goal(s): Decrease discomfort, Improve function, Increase independence, Improve disease control, Therapeutic intervention Activity Recommendations Activity Limitations: as noted below ( TOLERATED ) . Instructions / Follow-Up Instructions / Follow-Up HOSPITAL FOLLOW UP WITH DR GUZMAN ON 12/17/17 @ 10: 45 [facility] Address: [address] [place] [address] CARDIOLOGY FOLLOW UP : 12/30/2017@ 11:[address] Gm Bright, DO Cardiology , [facility] Avoid /limit salt intake to prevent fluid accumulation Do not take Aleve, Naproxen , ibuprofen , Motrin , advil -causes water retention /also damage to your kidneys IT IS VERY IMPORTANT TO QUIT DRINKING ALCOHOL -YOU HAVE SEVERE CARDIAC DAMAGE POSSIBLY SECONDARY TO RETIREMENT ALCOHOL INTAKE IN ORDER TO RECOVER AND KEEP HEART FAILURE TO STABLE , YOU NEED TO BE IN COMPLETE ABSTINENCE FORM DRINKING Call your Primary Care doctor if any of the following symptoms or problems start or get worse: * Shortness of breath or difficulty breathing * Wake up at night short of breath * Chest pain * Cough * Swelling of your hands, feet, or legs * More fatigued or tired with your normal activity * Palpitations - sudden fast heart beats WEIGHT * Weigh yourself every morning after using the bathroom. * Use the same scale. * Wear the same amount of clothing. * Write your weight down on a chart. * Call your Primary Care doctor if you gain more than 2-3 pounds in 1-2 days. MEDICATIONS * Use this discharge instruction sheet for medication instructions. * Take your medications at the time your doctor ordered. * Do not skip a dose of your medicines. * If you miss a dose of medicine, take it as soon as possible, but DO NOT DOUBLE A DOSE. * Read your medicine information when you get home. * Know all of the side effects of your medicine. If in doubt, ask your pharmacist * Call your Primary Care doctor's office if you have any side effects. * Be sure all of your doctors know what medicine and herbs you take (including cold, flu, and herbal medicine). Take the following with you to your follow-up doctor appointments: * Weight Chart * Medication List * List of questions Do not drink excessive alcohol, beer or wine. Current Hospital Diet Patient's current hospital diet: Low Sodium Diet (2gm Na) Discharge Diet Recommended Diet: Low Sodium Diet (2gm Na) Fluid Restriction: 1500 ml (6 cups) Pending Studies Studies pending at discharge: no Work Instructions Return To Work: after follow-up (NEED TO BE OFF WORK TILL EVALUATED BY CARDIOLOGY ) Lifting Limitations: no more than 10 pounds Additional Instructions: SHOULD AVOID HEAVY LIFTING /STRENOUS ACTITIVITY -YOU HAVE VERY POOR CARDIAC RESEVERE , ANY EXTRANEOUS WORK LOAD OR STRESS CAN LEAD YOU TO IRREGULAR HEART RHTYTHM /CARDIAC ARREST / Medical Emergencies . Who to Call and When: Call 911 or go to the Emergency Room if: * If at any time you feel your situation is an emergency * You have tightness or pain in your chest that does not go away with rest or Nitroglycerin * You are very short of breath even with rest . Non-Emergent Contact Non-Emergency issues call your: Primary Care Provider . . "Provider Documentation" section prepared by Maricruz Waldrop. .
--- NOTE | 2017-12-11 14:07 | Discharge Summary ---
Discharge Summary Date of Service Dec 11, 2017. Discharge Summary Admission Date: Dec 08, 2017 at 18:59 Discharge Date: Dec 11, 2017 Admission Information HPI (per Admitting provider): Pt is 72 y/o M without known significant medical history presented to ER with c/ o edema. Patient states 5 days ago he was working and pinched his left scrotum and states had slight scrotal edema. 2 days later reports diffuse increased scrotal edema. Reports scrotal pressure but denies pain or ecchymosis/ erythema. Reports scrotal edema surrounding penis and has had noted trouble with urination. Denies dysuria, hematuria. He has known inguinal hernia, denies any noted increased swelling or pain. Patient states 2 days ago noticed swelling to bilateral feet and legs and states felt diffuse abdominal pressure with sitting up. He reports cough sometimes intermittently productive (unsure coloration) for past 1-2 weeks. States 2 weeks ago started with postnasal drainage and states that increased drainage with lying supine. Noticed increased coughing at night. Reports noted orthopnea past week. Patient states noted 10pound weight gain upon evaluation at PCPs office. Today feeling a little dizzy, no syncope. Reports past 1-2 weeks with night sweats. Denies fever, diaphoresis, N/V/D/C, NOEL, vision changes, neck pain, CP, palpitations, hemoptysis, sore throat, choking, otalgia, paresthesias, weakness, extremity weakness, rashes, weight loss. Seen out pt PCP on 12/07/17 and had ULTRASOUND SCROTUM/TESTES: Impression: No evidence of injury testicular mass or torsion. Normal epididymis. Large bilateral hydrocele and edema of the scrotal wall. ULTRASOUND ABDOMEN: Impression diffusely increased echogenicity of the liver. Nonspecific finding. Fatty infiltration is a consideration, other diffuse hepatocellular processes. No sonographic evidence of cholelithiasis, cholecystitis or biliary ductal dilation. Limited evaluation of pancreas. Normal right kidney. Right pleural effusion. Denies fever/chills, diaphoresis, N/V/D/C, melena, hematochezia, NOEL, dizziness, syncope, vision changes, neck pain, CP, SOB, orthopnea, palpitations, cough, sore throat, choking, otalgia, rhinorrhea, abdominal pain, paresthesias, weakness, extremity weakness, extremity edema, rashes, weight loss. Physical Exam (per Admitting): General Appearance: WD/WN, no apparent distress Head: normocephalic, atraumatic Eyes: normal inspection, EOMI, sclerae normal ENT: hearing grossly normal, pharynx normal, + pertinent finding (Mucous membranes moist) Neck: supple, trachea midline Respiratory/Chest: no respiratory distress, no accessory muscle use, + decreased breath sounds (Bases bilaterally) Cardiovascular: no murmur, normal peripheral pulses, + tachycardia Abdomen/GI: normal bowel sounds, non tender, soft Genitourinary - Male: + pertinent finding (+ bilateral inguinal hernia, nontender. + Moderate scrotal and penile edema) Extremities/Musculoskelatal: normal capillary refill, normal range of motion , non-tender, + pedal edema (Bilateral leg pitting edema 2-3+) Neurologic/Psych: alert, normal mood/affect, oriented x 3 Skin: warm/dry Hospital Course Total time spent on discharge = This includes examination of the patient, discharge planning, medication reconciliation, and communication with other providers.
[2017-12-11] MEDS: ENOXAPARIN 40 MG/0.4 ML SYR SC SCH (21:05)
[2017-12-12 03:50] VITALS: BP 98/85; PULSE 98; TEMP 36.7; O2SAT 97
[2017-12-12 07:07] LABS: HEMATOCRIT 40.1 % (42-52); HEMOGLOBIN 12.9 g/dL (14.0-18.0); MEAN CELL VOLUME 99.5 fL (80-100); MEAN CORPUSCULAR HGB CONC 32.2 g/dl (32-36); MEAN PLATELET VOLUME 10.3 fL (7.4-10.4); PLATELET COUNT 143 K/uL (130-400); RED CELL DISTRIBUTION WIDTH SD 50.4 fL (36.4-46.3); WHITE BLOOD COUNT 2.78 K/uL (4.8-10.8)
[2017-12-12 07:39] LABS: CALCIUM 8.8 mg/dl (8.5-10.1); CREATININE 1.01 mg/dl (0.60-1.40); TOTAL PROTEIN 5.8 gm/dl (6.4-8.2)
[2017-12-12 08:00] VITALS: BP 107/91; PULSE 50; TEMP 36.9; O2SAT 96
[2017-12-12] MEDS: THIAMINE HCL 100 MG TAB PO SCH (08:19)
[2017-12-12] MEDS: METOPROLOL SUCC 25MG EXT REL TAB PO SCH (08:19)
[2017-12-12] MEDS: SPIRONOLACTONE 25 MG TAB PO SCH (08:19)
[2017-12-12] MEDS: MULTIVITAMIN TAB PO SCH (08:19)
[2017-12-12] MEDS: FoLIC ACID TAB 400 MCG TAB PO SCH (08:19)
[2017-12-12] MEDS: LOSARTAN POTASSIUM 25 MG TAB PO SCH (08:19)
[2017-12-12] MEDS ORDERED: ASPIRIN 81 MG ECTAB PO SCH (09:00)
[2017-12-12] MEDS ORDERED: FUROSEMIDE 40 MG TAB PO SCH (09:00)
--- NOTE | 2017-12-12 11:27 | PROGRESS NOTE ---
DATE: 12/12/2017 Patient is seen and examined. Chart, medications, telemetry reviewed. SUBJECTIVE: Patient feels improved since hospitalization. Anticipates discharge later today. Notes no dizziness or lightheadedness. Notes no shortness of breath, scrotal edema. Lower extremity edema has improved substantially. Weight is down 6 kg since admission. Notes no tachypalpitations, notes no orthopnea. Has been tolerating medications and ambulatory in the hallway. He has been instructed on the use of LifeVest. OBJECTIVE: VITAL SIGNS: Heart rate is 50, blood pressure is 107/90. HEENT: Normocephalic, atraumatic. NECK: Thin. There is no jugular venous distention at 30 degrees. RESPIRATORY: Lungs reveal good aeration to both bases. CARDIOVASCULAR: Regular. There is no S3 gallop. GASTROINTESTINAL: Abdomen is soft. VASCULAR: Extremities reveal trace to 1+ lower extremity edema. LABORATORY DATA: White cell count is 2.7, hemoglobin is 12.9. Sodium is 140, potassium is 4.0, chloride 103, bicarb is 32, BUN is 24, creatinine is 1.0, albumin level is 3.0. IMPRESSION: A 72-year-old male admitted with decompensated systolic heart failure with newly identified diffuse cardiomyopathy and severe left ventricular dysfunction, ejection fraction of 15%-20%. Patient has been placed on appropriate medical therapies. Anticipates discharge later home today with LifeVest. Discussed all details once again with patient, with CHF instructions emphasized including the need for daily weights and reporting of any signs or symptoms of worsening complaints. He anticipates being able to comply with sodium and fluid restrictions and above recommendations. Medications have already been prescribed as appropriate, and followup has been arranged post hospital discharge.
[2017-12-12 11:34] VITALS: BP 101/74; PULSE 55; TEMP 36.6; O2SAT 96
[2017-12-12] MEDS ORDERED: GABAPENTIN 600MG X1 DOSE PO SCH (12:00)
--- NOTE | 2017-12-12 16:30 | Discharge Summary ---
Discharge Summary Date of Service Dec 12, 2017. Discharge Summary Admission Date: Dec 08, 2017 at 18:59 Discharge Date: Dec 12, 2017 Discharge Disposition: Home Principal Diagnosis: CONGESTIVE HEART FAILURE WITH SEVERE SYSTOLIC DYSFUNCTION Procedures: ECHO Left ventricular systolic function is severely reduced. Ejection Fraction = 15-20%. There is severe global hypokinesis of the left ventricle. The right ventricle is moderately dilated. The right ventricular systolic function is moderate to severely reduced. Severe biatrial enlargement. Small circumferential pericardial effusion with a moderate volume of fluid loculated posteriorly. There are no echocardiographic indications of cardiac tamponade. Moderate size left pleural effusion. Consultations: [facility] CARDIOLOGY [facility] GI Medication Reconciliation New Medications: Aspirin (Aspirin) 81 Mg Tab 81 MG PO QAM for 30 Days, #30 TAB 3 Refills Folic Acid (Folic Acid) 400 Mcg Tab 400 MCG PO QAM for 30 Days, #30 TAB 3 Refills Furosemide (Furosemide) 40 Mg Tab 40 MG PO QAM for 30 Days, #30 TAB 3 Refills Losartan Potassium (Losartan Potassium) 25 Mg Tab 12.5 MG PO QAM for 30 Days, #15 TAB 3 Refills Metoprolol Succinate (Metoprolol Succinate ER) 25 Mg Tabcr 25 MG PO BID for 30 Days, #60 TAB 3 Refills Spironolactone (Spironolactone) 25 Mg Tab 25 MG PO QAM for 30 Days, #30 TAB 3 Refills Thiamine Hcl (Vitamin B-1) 100 Mg Tab 100 MG PO QAM for 30 Days, #30 TAB 3 Refills Referrals At Discharge Follow up Referrals: [facility] Referral - 12/30/17 with Gm Bright DO Admission Information HPI (per Admitting provider): Pt is 72 y/o M without known significant medical history presented to ER with c/ o edema. Patient states 5 days ago he was working and pinched his left scrotum and states had slight scrotal edema. 2 days later reports diffuse increased scrotal edema. Reports scrotal pressure but denies pain or ecchymosis/ erythema. Reports scrotal edema surrounding penis and has had noted trouble with urination. Denies dysuria, hematuria. He has known inguinal hernia, denies any noted increased swelling or pain. Patient states 2 days ago noticed swelling to bilateral feet and legs and states felt diffuse abdominal pressure with sitting up. He reports cough sometimes intermittently productive (unsure coloration) for past 1-2 weeks. States 2 weeks ago started with postnasal drainage and states that increased drainage with lying supine. Noticed increased coughing at night. Reports noted orthopnea past week. Patient states noted 10pound weight gain upon evaluation at PCPs office. Today feeling a little dizzy, no syncope. Reports past 1-2 weeks with night sweats. Denies fever, diaphoresis, N/V/D/C, NOEL, vision changes, neck pain, CP, palpitations, hemoptysis, sore throat, choking, otalgia, paresthesias, weakness, extremity weakness, rashes, weight loss. Seen out pt PCP on 12/07/17 and had ULTRASOUND SCROTUM/TESTES: Impression: No evidence of injury testicular mass or torsion. Normal epididymis. Large bilateral hydrocele and edema of the scrotal wall. ULTRASOUND ABDOMEN: Impression diffusely increased echogenicity of the liver. Nonspecific finding. Fatty infiltration is a consideration, other diffuse hepatocellular processes. No sonographic evidence of cholelithiasis, cholecystitis or biliary ductal dilation. Limited evaluation of pancreas. Normal right kidney. Right pleural effusion. Denies fever/chills, diaphoresis, N/V/D/C, melena, hematochezia, NOEL, dizziness, syncope, vision changes, neck pain, CP, SOB, orthopnea, palpitations, cough, sore throat, choking, otalgia, rhinorrhea, abdominal pain, paresthesias, weakness, extremity weakness, extremity edema, rashes, weight loss. Physical Exam (per Admitting): General Appearance: WD/WN, no apparent distress Head: normocephalic, atraumatic Eyes: normal inspection, EOMI, sclerae normal ENT: hearing grossly normal, pharynx normal, + pertinent finding (Mucous membranes moist) Neck: supple, trachea midline Respiratory/Chest: no respiratory distress, no accessory muscle use, + decreased breath sounds (Bases bilaterally) Cardiovascular: no murmur, normal peripheral pulses, + tachycardia Abdomen/GI: normal bowel sounds, non tender, soft Genitourinary - Male: + pertinent finding (+ bilateral inguinal hernia, nontender. + Moderate scrotal and penile edema) Extremities/Musculoskelatal: normal capillary refill, normal range of motion , non-tender, + pedal edema (Bilateral leg pitting edema 2-3+) Neurologic/Psych: alert, normal mood/affect, oriented x 3 Skin: warm/dry Hospital Course no complain of SOB or chest heaviness Life vest teaching done by the site safety representative pt is fitted with Zoll Life vest stable to be discharged home today PHYSICAL EXAM General Appearance: WD/WN, no apparent distress Eyes: normal inspection, sclerae normal ENT: hearing grossly normal, pharynx normal, + pertinent finding (mucous membranes moist) Neck: supple, trachea midline Respiratory/Chest: no respiratory distress, no accessory muscle use, + pertinent finding (some decreased breath sounds at bases) Cardiovascular: + systolic murmur, + pertinent finding (irregular) Abdomen: normal bowel sounds, non tender, soft, + pertinent finding Extremities: non-tender, normal capillary refill, + no pedal edema Neurologic/Psychiatric: alert, normal mood/affect ACUTE CHF WITH SEVERE SYSTOLIC DYSFUNCTION presented with Anasarca /generalized swelling -BLE edema and scrotal edema, & cough. FINNEY, orthopnea symptom improved after aggressive diuresis on negative balance of approx 4 L since admission Echo: * Left ventricular systolic function is severely reduced. * Ejection Fraction = 15-20%. * There is severe global hypokinesis of the left ventricle. * The right ventricle is moderately dilated. * The right ventricular systolic function is moderate to severely reduced. * Severe biatrial enlargement. * Small circumferential pericardial effusion with a moderate volume of fluid loculated posteriorly. * There are no echocardiographic indications of cardiac tamponade. * Moderate size left pleural effusion. -low sodium diet, fluid restriction 1500ml/day -Appreciate Cardiology recommendations: Toprol XL 25 mg twice a day losartan 12.5 mg daily, eventually plan to transition to Entresto Aldactone 25 mg p.o. daily ASA 81mg daily Lasix 40 mg PO Daily Outpatient Diagnostic cardiac catheterization once compensated Wearable cardioverter-defibrillator (LifeVest) prior to discharge Possible future ICD implantation BILATERAL HYDROCELES SCROTAL EDEMA secondary to fluid overload/ decompensated CHF 12/07/17 - U/S SCROTUM/TESTES: Impression: No evidence of injury testicular mass or torsion. Normal epididymis. Large bilateral hydrocele and edema of the scrotal wall. -scrotal edema improved significantly after diuresis PERICARDIAL EFFUSION Due Decompensated CHF Echo: * Small circumferential pericardial effusion with a moderate volume of fluid loculated posteriorly. * There are no echocardiographic indications of cardiac tamponade. -cardiology consult appreciated -pt will be discharged on diuretics regimen repeat ECHO in 3 months PLEURAL EFFUSIONS COUGH -Due to decompensated CHF with severe systolic dysfunction /fluid overload / atelectasis Most recent CXR: No evidence for pulmonary edema. Resolution of pulmonary vascular congestion. Small bilateral pleural effusions with linear left basilar opacities suggestive of atelectasis. -Initially treated with doxycycline for possible pneumonia, however was discontinued-as evidence of infection low sodium diet, fluid restriction 1500ml/day cont diuresis with losartan 12.5 mg daily, eventually plan to transition to Entresto Aldactone 25 mg p.o. daily Lasix 40 mg PO Daily -incentive spirometry HTN -Toprol XL 25 mg twice a day -losartan 12.5 mg daily -Aldactone 25 mg p.o. daily -Lasix 40 mg PO daily ELEVATED LIVER FUNCTIONS due to decompensated CHF with underlying possible alcoholic liver disease pt reports of drinking 4-6 beer a day Overall improved liver functions with normal AST, ALT, alk phos. Tbili: 1.1. Normal Plt, INR CT ABD/PELVIS: normal appearing liver with patent vasculature. -Hep C antibody negative, non-reactive -GI consult - No indication for further liver disease workup at this time -pt is counselled for abstinence form ETOH - ETOH ABUSE drinks 4 beers daily. -initially was treated with alcohol withdrawal protocol - later -Gabapentin was discontinued as no signs of withdrawal. 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 See addendum (Shanon Quintero .HERNÁN) ATTENDING ADDENDUM Patient seen and examined care coordinated with Shanon Quintero PA-C Labs and images reviewed Denies of any shortness of breath, orthopnea, lower extremity edema, ascites has improved markedly, patient diuresed approximately 5 L fluid since admission LifeVest/Zoll vest ordered, delivered to patient's bedside Patient will be discharged on Lasix 40 mg p.o. daily Toprol-XL 25 mg BID , losartan 12.5 mg daily , Aldactone 25 mg PO daily Aspirin 81 mg daily Outpatient follow-up scheduled with cardiology Repeat echocardiogram done in 3 months -to assess LV function May need ICD placement if left ventricular systolic function remains significantly compromised medically stable to be discharged home today Maricruz Waldrop MD (Maricruz Waldrop M.D.) Total time spent on discharge = 40 mins This includes examination of the patient, discharge planning, medication reconciliation, and communication with other providers. Discharge Instructions Discharge Instructions Date of Service Dec 11, 2017. Admission Reason for Admission: Anasarca Discharge Discharge Diagnosis / Problem: CONGESTIVE HEART FAILURE WITH SEVERE SYSTOLIC DYSFUNCTION Discharge Goals Goal(s): Decrease discomfort, Improve function, Increase independence, Improve disease control, Therapeutic intervention Activity Recommendations Activity Limitations: as noted below ( TOLERATED ) . Instructions / Follow-Up Instructions / Follow-Up HOSPITAL FOLLOW UP WITH DR GUZMAN ON 12/17/17 @ 10: 45 AM @ [facility] Address: [address] [place] [address] CARDIOLOGY FOLLOW UP : 12/30/2017@ 11:[address] Gm Bright, DO Cardiology , [facility] Avoid /limit salt intake to prevent fluid accumulation Do not take Aleve, Naproxen , ibuprofen , Motrin , advil -causes water retention /also damage to your kidneys IT IS VERY IMPORTANT TO QUIT DRINKING ALCOHOL -YOU HAVE SEVERE CARDIAC DAMAGE POSSIBLY SECONDARY TO MILLER FIRST ALCOHOL INTAKE IN ORDER TO RECOVER AND KEEP HEART FAILURE TO STABLE , YOU NEED TO BE IN COMPLETE ABSTINENCE FORM DRINKING Call your Primary Care doctor if any of the following symptoms or problems start or get worse: * Shortness of breath or difficulty breathing * Wake up at night short of breath * Chest pain * Cough * Swelling of your hands, feet, or legs * More fatigued or tired with your normal activity * Palpitations - sudden fast heart beats WEIGHT * Weigh yourself every morning after using the bathroom. * Use the same scale. * Wear the same amount of clothing. * Write your weight down on a chart. * Call your Primary Care doctor if you gain more than 2-3 pounds in 1-2 days. MEDICATIONS * Use this discharge instruction sheet for medication instructions. * Take your medications at the time your doctor ordered. * Do not skip a dose of your medicines. * If you miss a dose of medicine, take it as soon as possible, but DO NOT DOUBLE A DOSE. * Read your medicine information when you get home. * Know all of the side effects of your medicine. If in doubt, ask your pharmacist * Call your Primary Care doctor's office if you have any side effects. * Be sure all of your doctors know what medicine and herbs you take (including cold, flu, and herbal medicine). Take the following with you to your follow-up doctor appointments: * Weight Chart * Medication List * List of questions Do not drink excessive alcohol, beer or wine. Current Hospital Diet Patient's current hospital diet: Low Sodium Diet (2gm Na) Discharge Diet Recommended Diet: Low Sodium Diet (2gm Na) Fluid Restriction: 1500 ml (6 cups) Pending Studies Studies pending at discharge: no Work Instructions Return To Work: after follow-up (NEED TO BE OFF WORK TILL EVALUATED BY CARDIOLOGY ) Lifting Limitations: no more than 10 pounds Additional Instructions: SHOULD AVOID HEAVY LIFTING /STRENOUS ACTITIVITY -YOU HAVE VERY POOR CARDIAC RESEVERE , ANY EXTRANEOUS WORK LOAD OR STRESS CAN LEAD YOU TO IRREGULAR HEART RHTYTHM /CARDIAC ARREST / Medical Emergencies . Who to Call and When: Call 911 or go to the Emergency Room if: * If at any time you feel your situation is an emergency * You have tightness or pain in your chest that does not go away with rest or Nitroglycerin * You are very short of breath even with rest . Non-Emergent Contact Non-Emergency issues call your: Primary Care Provider . . "Provider Documentation" section prepared by Maricruz Waldrop. .
[2017-12-14 19:30] LABS: ANA SCREEN TC 249X NEGATIVE (NEGATIVE)
== END 2017-12-12 12:40 | disposition home or self-care (01) | DRG 314 ==
LOC: C.EDB 15:12 → C.2E 18:59 → EEVIPCON 18:59 → ENRESERV 19:30
PROVIDERS: ADMIT Internal Medicine; ATTEND Hospitalist
DX: I42.6 Alcoholic cardiomyopathy (principal); I50.21 Acute systolic (congestive) heart failure; I31.3 Pericardial effusion (noninflammatory); F10.188 Alcohol abuse with other alcohol-induced disorder; R18.8 Other ascites; K70.9 Alcoholic liver disease, unspecified; N43.3 Hydrocele, unspecified; I11.0 Hypertensive heart disease with heart failure; F17.220 Nicotine dependence, chewing tobacco, uncomplicated; Z51.81 Encounter for therapeutic drug level monitoring; Z82.49 Family history of ischemic heart disease and other diseases of the circulatory system; Z80.6 Family history of leukemia; Z80.42 Family history of malignant neoplasm of prostate

== ENCOUNTER 2025-04-14 11:37 | Inpatient (IN) ==
[2025-04-14] MEDS: ONDANSETRON INJ 2 MG/ML 2 ML VIAL IV STA (11:59)
[2025-04-14] MEDS: MoRPHine SULFATE 4 MG/ML 1 ML CARP\\VIAL IV STA (11:59)
--- NOTE | 2025-04-14 12:02 | Emergency Department Note ---
Impression & Plan Multiple fractures of ribs, Chest wall contusion, Fall, Head injury, Contusion of arm, left, Dizziness, Elevated troponin I level ED Provider Note NAME: EMILIA LAINEZ AGE: 79 SEX: M : 1945 ARRIVES VIA: Ambulance INFORMANT: Patient, EMS ED PROVIDER(S): Jose Kaye DO CHIEF COMPLAINT: Injury alert HPI: The patient is a 79-year-old male who presented to the emergency department as an injury alert. The patient had a fall from a standing position. He was shoveling snow on his driveway. He states he became lightheaded and fell. He struck his chest against a chair arm. He states he then had to crawl back into his house. He called 911. He does have an injury to the right side of his forehead. He states this occurred when he was crawling back. He could not stand because of the pain on his chest wall. He denies having any loss of consciousness. He denies having any headache or neck pain at this time. The patient was made an injury alert as he does take oral anticoagulants. ROS: See above HPI for pertinent positives & negatives. A total of 10 systems reviewed and were otherwise negative. PAST MEDICAL HISTORY: See Below PAST SURGICAL HISTORY: See Below FAMILY HISTORY: See Below SOCIAL HISTORY: See Below HOME MEDICATIONS: See Below ALLERGIES: See Below VITALS: See Below PHYSICAL EXAMINATION: Primary Survey Airway: Intact Breathing: Normal, breath sounds equal bilaterally Circulation: Skin warm, distal pulses 2+, capillary refill less than 2 seconds Disability Pupils: Equal and reactive to light, 3mm, brisk GCS: 15, Motor Function: Moves all extremities. Sensory: No deficits Secondary Survey GEN: Well developed and well-nourished HEAD: There was a hematoma on the right side of the forehead. No active bleeding was noted. EYES: Pupils round reactive to light, conjunctiva clear, extraocular movements intact, no raccoons eyes ENT: Dentition was intact. NECK: No JVD, midline trachea, no cervical spine tenderness, C-collar in place by my nursing staff. HEART: Regular rate and rhythm LUNGS: Diminished breath sounds are noted in the left lung field. There were rales at the left base. There is no tachypnea but there was splinting respirations noted. CHEST: Tenderness was noted over the left side of the ribs. There was no crepitus appreciated. ABD: There is no tenderness guarding or rigidity noted. There was tenderness in the left upper quadrant that is consistent with the chest wall pain. BACK: No step offs or deformities, T-L spine non tender EXT: 2+ global pulses, moving all extremities well, +5/5 muscle strength globally NEURO: CNII-XII grossly intact, no sensory deficits MEDICAL DECISION MAKING: The patient is a 79-year-old male who presented to the emergency department after a fall. He was made a trauma activation after arrival given the patient's mechanism as well as his or anticoagulant use. I discussed patient's laboratory and radiographic studies with him. He was treated with IV pain medication in the emergency department. Cervical spine was cleared in usual fashion. Ultimately the patient was felt to be a better candidate for inpatient management. Given his age and comorbidities and the presence of multiple rib fractures I discussed his condition with the on-call [facility] hospitalist. They have agreed to evaluate the patient in the emergency department for further management and disposition. Triage Nursing notes reviewed. Prior medical records reviewed Vital Signs: reviewed and remarkable for no significant abnormalities Differential diagnosis: Fracture, dislocation, contusion, intra-abdominal, pneumothorax, intrathoracic, intracranial, neurologic, compartment syndrome, rhabdomyolysis, as well as other pathologies. ER treatment provided: See below Diagnostics interpreted by me: ECG: EKG was obtained in the emergency department. My interpretation is atrial sensed ventricular paced rhythm at 68 bpm. Left bundle branch block pattern is noted. No [place] beats were noted. This was compared to a tracing from March 17, 2018. No changes were noted. Cardiac Monitoring: An order was placed for continuous cardiac monitoring. The monitor shows a rate of 75 bpm with paced rhythm. Laboratory studies: As stated above and show below. Imaging studies: See below. Radiographic imaging was reviewed by myself Consultation(s): I discussed this case with Dr. Caban who [facility] ED COURSE: 1300: The patient was reevaluated. After radiographic clearance the cervical spine was reevaluated. He is now clinically cleared as well. The collar was removed. Past Med/Surg History Problem List (Updated 04/14/25 @ 14:56 by Otot Caban MD) AICD (automatic cardioverter/defibrillator) present Pre-syncope Elevated troponin I level (Acute) Dizziness (Acute) Contusion of arm, left (Acute) Head injury (Acute) Fall (Acute) Chest wall contusion (Acute) Multiple fractures of ribs (Acute) Encounter for pre-operative examination CHF (congestive heart failure), NYHA class III Anasarca (Acute) NICM (nonischemic cardiomyopathy) Pt admitted for elective BIV ICD underwent procedure with the LV lead positioned in over the HIS bundle. Monitored overnight and discharged. LBBB (left bundle branch block) Congestive heart failure (Acute) Pleural effusion (Acute) Anasarca (Acute) Medical History (Updated 04/14/25 @ 14:56 by Otto Caban MD) Hyperlipidemia Surgical History (Updated 04/14/25 @ 15:04 by Otto Caban MD) History of cataract surgery LEFT ICD (implantable cardioverter-defibrillator) in place PLACED 03/2018 Pacemaker PLACED 03/2018 Family History Brother Family history of diabetes mellitus Brother Family history of diabetes mellitus Social History Smoking Status: Never smoker Tobacco Type: Smokeless Tobacco (Dip or Chew) Second Hand Exposure: No; Do You Dip or Chew Tobacco: Yes; Hx Alcohol Use: No Hx Substance Use: No Preferred Language: Kyrgyz Communication Ability: Effective Iuss Acoustic Analyst Required: No Beliefs That Will Affect Care: None Current Living Situation: Alone Other Information That Helps Us Care for You: No Feels Safe at Home: Yes Safety Concerns: Feels Safe At This Time Assistive Devices: Cane and Walker Allergies Allergies Allergy/AdvReac Type Severity Reaction Status Date / Time chocolate flavor Allergy Rash Verified 05/03/24 08:59 jeanette Allergy Mild Rash Uncoded 06/14/18 06:33 Home Meds Home Medications Medication Instructions Recorded Confirmed atorvastatin 20 mg tablet 20 mg PO QAM 05/20/18 04/14/25 folic acid 400 mcg tablet 0.4 mg PO QAM 05/20/18 04/14/25 metoprolol succinate 25 mg 25 mg PO HS 05/20/18 04/14/25 tablet,extended release 24 hr sacubitril 24 mg-valsartan 26 mg 1 tab PO BID 05/20/18 04/14/25 tablet (Entresto) thiamine HCl (vitamin B1) 100 mg 100 mg PO QAM 05/20/18 04/14/25 tablet amiodarone 200 mg tablet 200 mg PO QAM 04/14/25 04/14/25 apixaban 5 mg tablet (Eliquis) 5 mg PO BID 04/14/25 04/14/25 cyclobenzaprine 10 mg tablet 5 mg PO DAILY PRN Pain 04/14/25 04/14/25 furosemide 20 mg tablet 20 mg PO 3XWK 04/14/25 04/14/25 latanoprostene bunod 0.024 % eye 1 drp ophthalmic (eye) HS 04/14/25 04/14/25 drops (Vyzulta) levothyroxine 50 mcg tablet 50 mcg PO QAM 04/14/25 04/14/25 spironolactone 25 mg tablet 12.5 mg PO 3XWK 04/14/25 04/14/25 timolol maleate 0.25 % eye drops 1 drp ophthalmic (eye) QAM 04/14/25 04/14/25 Results & Data (ED) Vital Signs Vital Signs - 24 hr 04/14/25 11:47 04/14/25 11:47 04/14/25 12:47 Temperature 36.6 C Temperature Source Temporal Artery Scan Pulse Rate 67 Pulse Rate [Apical] 57 L Respiratory Rate 18 19 Respiratory Effort / Characteristics Non-Labored Spontaneous Respiratory Depth Normal Respiratory Pattern Regular Blood Pressure 114/79 Blood Pressure [Left Arm] 106/66 Blood Pressure Mean 90 Blood Pressure Mean [Left Arm] 79 Pulse Oximetry 95 96 94 Oxygen Delivery Method Room Air Room Air Room Air Oxygen Flow Rate Sepsis Recent Fever Within 48 Hours No Sepsis New/Unexplained Change in Mental Status N/A Sepsis Action Taken by Nursing No Action Required 04/14/25 13:00 04/14/25 13:00 04/14/25 13:00 Temperature 36.5 C Temperature Source Pulse Rate 75 Pulse Rate [Apical] 68 Respiratory Rate 19 19 Respiratory Effort / Characteristics Respiratory Depth Respiratory Pattern Blood Pressure 102/64 Blood Pressure [Left Arm] 102/64 Blood Pressure Mean Blood Pressure Mean [Left Arm] 76 Pulse Oximetry 92 97 97 Oxygen Delivery Method Room Air Room Air Room Air Oxygen Flow Rate 0 Sepsis Recent Fever Within 48 Hours Sepsis New/Unexplained Change in Mental Status Sepsis Action Taken by Group Home Medications Current Medication List: was personally reviewed by me Laboratory Data Attestation: I reviewed the patient's lab results. 04/14/25 11:50 04/14/25 11:50 Lab Results 04/14/25 04/14/25 04/14/25 Range/Units 11:50 11:53 12:29 WBC 5.71 (4.8-10.8) K/ul RBC 4.33 L (4.70-6.10) M/uL Hgb 14.2 (14.0-18.0) g/dL POC Hgb 14.6 (14.0-18.0) g/dl Hct 42.6 (42.0-52.0) % POC Hct 43 (42-52) % MCV 98.4 (80.0-100.0) fL MCH 32.8 (25.0-34.0) pg MCHC 33.3 (32.0-36.0) g/dL RDW Std Deviation 45.6 (36.4-46.3) fL RDW Coeff of Huong 12.6 (11.5-14.5) % Plt Count 173 (130-400) K/uL MPV 10.9 (9.4-12.4) fL Immature Gran % (Auto) 0.4 % Neut % (Auto) 78.4 % Lymph % (Auto) 12.8 % [place] % (Auto) 7.7 % Eos % (Auto) 0.5 % Baso % (Auto) 0.2 % Neut # (Auto) 4.48 (1.40-6.50) K/uL Lymph # (Auto) 0.73 L (1.20-3.40) K/uL [place] # (Auto) 0.44 (0.11-0.59) K/uL Eos # (Auto) 0.03 (0.00-0.50) K/uL Baso # (Auto) 0.01 (0.00-0.20) K/uL Immature Gran # (Auto) 0.02 (0.01-0.20) K/uL PT Cancelled INR Cancelled APTT Cancelled PTT Ratio Cancelled POC Sodium 142 (135-144) mmol/L Sodium 140 (136-145) mmol/L POC Potassium 4.6 (3.3-5.0) mmol/L Potassium 4.6 (3.5-5.1) mmol/L POC Chloride 106 (101-112) mmol/L Chloride 107 (98-107) mmol/L Carbon Dioxide 26 (21-32) mmol/L POC Total CO2 23 L (24-31) mmol/L Anion Gap 7 (3-11) POC Anion Gap 18.0 (16-25) mmol/L POC BUN 41 H (7-18) mg/dl BUN 41 H (6-23) mg/dl Creatinine 1.21 (0.6-1.4) mg/dl POC Creatinine 1.3 (0.6-1.3) mg/dl Est Cr Clr Drug Dosing Not Reportable eGFR 61.29 BUN/Creatinine Ratio 33.9 H (10-20) Glucose 130 H (70-99(Fasting)) mg/dl POC Glucose (other) 127 H (70-99) mg/dl Calcium 9.4 (8.6-10.3) mg/dl POC Ioniz Calcium Jose 1.20 (1.12-1.32) mmol/l Total Bilirubin 0.7 (0.2-1.0) mg/dl AST 34 (13-39) U/L ALT 40 (7-52) U/L Alkaline Phosphatase 81 (34-104) U/L Troponin I High Sens 31.2 H (0-20) pg/ml Total Protein 7.3 (6.0-8.3) gm/dl Albumin 4.1 (3.4-5.0) gm/dl Globulin 3.2 (2.5-4.0) gm/dl Albumin/Globulin Ratio 1.3 (0.9-2) Lipase 32 (11-82) U/L Urine Color Yellow Urine Appearance Clear (Clear) Urine pH 5.0 (4.5-7.5) Ur Specific [place] 1.009 (1.000-1.030) Urine Protein Negative (Negative) Urine Glucose (UA) Negative (Negative) Urine Ketones Negative (Negative) Urine Blood Negative (Negative) Urine Nitrite Negative (Negative) Urine Bilirubin Negative (Negative) Urine Urobilinogen Negative (Negative) Ur Leukocyte Esterase Negative (Negative) Urine Comment 04/14/25 04/14/25 Range/Units 12:45 13:40 WBC (4.8-10.8) K/ul RBC (4.70-6.10) M/uL Hgb (14.0-18.0) g/dL POC Hgb (14.0-18.0) g/dl Hct (42.0-52.0) % POC Hct (42-52) % MCV (80.0-100.0) fL MCH (25.0-34.0) pg MCHC (32.0-36.0) g/dL RDW Std Deviation (36.4-46.3) fL RDW Coeff of Huong (11.5-14.5) % Plt Count (130-400) K/uL MPV (9.4-12.4) fL Immature Gran % (Auto) % Neut % (Auto) % Lymph % (Auto) % [place] % (Auto) % Eos % (Auto) % Baso % (Auto) % Neut # (Auto) (1.40-6.50) K/uL Lymph # (Auto) (1.20-3.40) K/uL [place] # (Auto) (0.11-0.59) K/uL Eos # (Auto) (0.00-0.50) K/uL Baso # (Auto) (0.00-0.20) K/uL Immature Gran # (Auto) (0.01-0.20) K/uL PT Cancelled INR Cancelled APTT Cancelled PTT Ratio Cancelled POC Sodium (135-144) mmol/L Sodium (136-145) mmol/L POC Potassium (3.3-5.0) mmol/L Potassium (3.5-5.1) mmol/L POC Chloride (101-112) mmol/L Chloride (98-107) mmol/L Carbon Dioxide (21-32) mmol/L POC Total CO2 (24-31) mmol/L Anion Gap (3-11) POC Anion Gap (16-25) mmol/L POC BUN (7-18) mg/dl BUN (6-23) mg/dl Creatinine (0.6-1.4) mg/dl POC Creatinine (0.6-1.3) mg/dl Est Cr Clr Drug Dosing eGFR BUN/Creatinine Ratio (10-20) Glucose (70-99(Fasting)) mg/dl POC Glucose (other) (70-99) mg/dl Calcium (8.6-10.3) mg/dl POC Ioniz Calcium Jose (1.12-1.32) mmol/l Total Bilirubin (0.2-1.0) mg/dl AST (13-39) U/L ALT (7-52) U/L Alkaline Phosphatase (34-104) U/L Troponin I High Sens 61.2 H* D (0-20) pg/ml Total Protein (6.0-8.3) gm/dl Albumin (3.4-5.0) gm/dl Globulin (2.5-4.0) gm/dl Albumin/Globulin Ratio (0.9-2) Lipase (11-82) U/L Urine Color Urine Appearance (Clear) Urine pH (4.5-7.5) Ur Specific [place] (1.000-1.030) Urine Protein (Negative) Urine Glucose (UA) (Negative) Urine Ketones (Negative) Urine Blood (Negative) Urine Nitrite (Negative) Urine Bilirubin (Negative) Urine Urobilinogen (Negative) Ur Leukocyte Esterase (Negative) Urine Comment Administered Medications Acetaminophen (Acetaminophen 500 Mg Tab) 1,000 mg PO Q8H HANY Stop: 05/14/25 14:29 Last Admin: 04/14/25 14:32 Dose: 1,000 mg Documented By: chrissy Lidocaine (Lidocaine 5% 1 Patch) 1 patch TD QAM [facility] Stop: 05/14/25 14:29 Last Admin: 04/14/25 14:32 Dose: 1 patch Documented By: chrissy Discontinued Medications Sodium Chloride (Nss) 500 mls @ 999 mls/hr IV .Q31M ONE Stop: 04/14/25 12:13 Last Infusion: 04/14/25 13:44 Dose: Infused Documented By: giana Admin: 04/14/25 12:03 Dose: 999 mls/hr Documented By: giana Ioversol (Optiray 320 100ml) 94 ml IV ONCE ONE Stop: 04/14/25 12:35 Last Admin: 04/14/25 12:34 Dose: 94 ml Documented By: SATISH Morphine Sulfate (Morphine Sulfate 4 Mg/Ml 1 Ml Carp\Vial) 4 mg IV NOW STA Stop: 04/14/25 11:44 Last Admin: 04/14/25 11:59 Dose: 4 mg Documented By: giana Ondansetron HCl (Ondansetron Inj 2 Mg/Ml 2 Ml Vial) 4 mg IV NOW STA Stop: 04/14/25 11:44 Last Admin: 04/14/25 11:59 Dose: 4 mg Documented By: giaan Imaging Data Attestation: I personally reviewed and interpreted this imaging study as follows: My Impression: 1 view chest x-ray was obtained in the emergency department. My interpretation is no free air or definite infiltrate, small left pleural effusion was noted, final report below. Radiologist's Impression: Chest X-Ray 04/14/25 11:43 XR chest 1V portable HISTORY: 79 years-old Male Trauma acute chest trauma. COMPARISON: Chest radiograph 03/18/2018 TECHNIQUE: AP view the chest FINDINGS: Left subclavian pacer/AICD. Cardiomegaly. Small left pleural effusion with mild left basilar opacities. No pneumothorax or overt pulmonary edema. The right lung is clear. The bones of the chest appear grossly intact. IMPRESSION: 1. Cardiomegaly without overt pulmonary edema. 2. Small left pleural effusion with mild left basilar atelectasis. ACT 112: Negative or not required by law. The above report was generated using voice recognition software. It may contain grammatical, syntax or spelling errors. Electronically signed by: Issa Gustafson M.D. 04/14/2025 12:[address] 04/14/25 11:[address] WITH CONTRAST CLINICAL HISTORY: Trauma. COMPARISON STUDY: CT of the abdomen and pelvis December 08, 2017. TECHNIQUE: Axial images of the lumbar spine were obtained following intravenous injection of 94 cc of Optiray 320 IV. Sagittal and coronal reformats were viewed. A dose lowering technique was utilized adhering to the principles of ALARA. FINDINGS: Please note that the CT of the abdomen and pelvis will be reported separately. Alignment of the lumbar spine is anatomic. There are no lumbar spine fractures. There are no osseous lesions. There is mild disc space narrowing with vacuum disc phenomenon at the L5-S1 level. The central canal and neural foramen are suboptimally assessed given CT technique. There is moderate multilevel facet arthrosis within lumbar spine. IMPRESSION: No lumbar spine fracture or subluxation. ACT 112: Negative or not required by law. Electronically signed by: Riley Malloy M.D. 04/14/2025 12:48 PM Abdomen/Pelvis CT 04/14/25 11:44 CT SCAN OF THE ABDOMEN AND PELVIS WITH IV CONTRAST CLINICAL HISTORY: Trauma COMPARISON STUDY: Abdominal CT dated 12/08/2017. TECHNIQUE: Following the IV administration of 94 cc of Optiray 320, CT scan of the abdomen and pelvis is performed from the lung bases to the proximal femora. Images are reviewed in the axial, sagittal, and coronal planes. IV contrast was administered without complication. A dose lowering technique was utilized adhering to the principles of ALARA. There is streak artifact from the arms which could not be elevated above the abdomen. CT DOSE: 4360.55 mGy.cm FINDINGS: Lung bases: The heart is enlarged and without pericardial effusion. Pacemaker leads are in place. There is bibasilar scarring/atelectasis. No airspace consolidation or pleural effusion is identified. There is no basilar pneumothorax. Mild bronchiectasis is seen in the lower lobes. Liver: The contrast-enhanced liver is normal in size, contour, and attenuation. There is minimal central intrahepatic biliary ductal dilatation. The hepatic veins and portal veins are patent. Gallbladder: Unremarkable. Spleen: Normal in size and attenuation. Pancreas: Moderately atrophic and grossly unremarkable. Adrenal glands: Unremarkable. Kidneys: The contrast enhanced kidneys demonstrate mild cortical atrophy and are without hydronephrosis. The kidneys enhance symmetrically. Abdominal vasculature: The abdominal aorta is normal in course and caliber noting mild atherosclerotic calcification. Bowel: There is moderate colonic diverticulosis without CT evidence of acute diverticulitis. No bowel obstruction is seen. Mild fecal retention is seen throughout the colon. The appendix is well-visualized and normal. Peritoneum: There is no intraperitoneal free air or abdominal ascites. There is a tiny fat-containing umbilical hernia. Lymphadenopathy: None. Pelvic viscera: The prostate gland is mildly enlarged and heterogeneous. The bladder is distended but otherwise normal as imaged. There are bilateral fat- containing groin hernias. Skeletal structures: The skeletal structures are osteopenic. There are acute nondisplaced fractures of the left anterior 5th through 7th ribs with mild overlying soft tissue contusion. The lumbosacral spine, bony pelvis, and proximal femora appear intact. There is mild lumbosacral spondylosis. No lytic or blastic lesions are seen. Degenerative change is seen in the sacroiliac joints. Arthritic changes noted in the hips. IMPRESSION: 1. There are acute nondisplaced fractures of the left anterior 5th through 7th ribs. 2. No additional fracture is identified. 3. There is no evidence of solid organ injury in the abdomen or pelvis. 4. Cardiomegaly and cardiac pacemaker. 5. Colonic diverticulosis without CT evidence of acute diverticulitis. 6. Additional findings above. ACT 112: Negative or not required by law. Electronically signed by: Valentín Peters M.D. 04/14/2025 12:[address] 04/14/25 11:44 CT SCAN OF THE CERVICAL SPINE CLINICAL HISTORY: Trauma COMPARISON STUDY: No priors TECHNIQUE: CT scan of the cervical spine is performed from the skull base to the upper thoracic spine. Images are reviewed in the axial, sagittal, and coronal planes. IV contrast was not administered for this examination. A dose lowering technique was utilized adhering to the principles of ALARA. FINDINGS: Skeletal structures: The skeletal structures are osteopenic. There is no evidence of fracture or subluxation involving the cervical spine. Vertebral body height and alignment are maintained. There is straightening of the cervical lordosis. Anterior osteophytes are seen throughout. The odontoid process and lateral masses are intact. The atlantoaxial articulation is preserved noting productive degenerative change. The spinous processes appear intact. There is moderate multilevel cervical spondylosis. Uncovertebral and facet arthropathy contribute to neural foraminal narrowing at several levels. Intervertebral discs: Moderate disc space narrowing is seen at C4-C5, C5-C6, and C6-C7 with moderate endplate sclerosis. There is [id number] narrowing at C3-C4. Central canal: Posterior disc osteophyte complexes are seen at all cervical levels between C3-C4 and C6-C7. This likely contributes to mild multilevel acquired compromise of the central canal. Soft tissues: The prevertebral and paraspinous soft tissues are within normal limits. There is atherosclerotic calcification of the carotid bulbs. Pacemaker leads are seen at the left thoracic inlet. Calvarium: The visualized calvarium at the skull base appears intact. Brain parenchyma: Partially visualized brain parenchyma at the skull base is within normal limits. Sinuses and mastoids: The visualized paranasal sinuses are clear. The mastoid air cells are well pneumatized. Lung apices: Clear as visualized. IMPRESSION: 1. There is no evidence of fracture or subluxation involving the cervical spine. 2. Osteopenia and spondylotic change as above. ACT 112: Negative or not required by law. Electronically signed by: Valentín Peters M.D. 04/14/2025 12:[address] 04/14/25 11:[address] WITH CONTRAST HISTORY: Acute bilateral rib pain status post fall Trauma TECHNIQUE: Multiaxial CT images of the chest were performed following the IV administration of 94 cc of Optiray. A dose lowering technique was utilized adhering to the principles of ALARA. COMPARISON: CT abdomen and pelvis and lumbar spine study same day FINDINGS: Subcentimeter thyroid nodules. Heart is mildly enlarged. No pericardial effusion. Left subclavian pacer/AICD. No thoracic aortic aneurysm. No pulmonary emboli are seen. No pneumothorax, pleural effusion, airspace consolidation, pulmonary edema, suspicious pulmonary nodule or mass. Mild linear left basilar predominant atelectasis. Punctate calcified granuloma of the right upper lobe. Central airways are patent. CT abdomen and pelvis dictated separately. No paravertebral edema. Degenerative changes of the shoulders and spine. Acute nondisplaced fracture of the anterior left seventh rib. IMPRESSION: 1. Acute nondisplaced fracture of the anterior left seventh rib. 2. No pneumothorax or pleural effusion. ACT 112: Negative or not required by law. Electronically signed by: Issa Gustafson M.D. 04/14/2025 12:[address] 04/14/25 11:44 CT head/brain wo con CLINICAL HISTORY: 79 years-old Male with trauma. Acute head trauma TECHNIQUE: Multiple axial CT images of the head were obtained without contrast. A dose lowering technique was utilized adhering to the principles of ALARA. COMPARISON: None available FINDINGS: No acute intracranial hemorrhage, midline shift, intracranial mass, hydrocephalus, territorial ischemia or abnormal extra-axial collection. Involutional changes of the brain parenchyma. Motion degraded exam. The calvarium is intact. The paranasal sinuses, mastoid air cells, and middle ear cavities are clear. IMPRESSION: No acute intracranial abnormality or calvarial fracture. ACT 112: Negative or not required by law. The above report was generated using voice recognition software. It may contain grammatical, syntax or spelling errors. Electronically signed by: Issa Gustafson M.D. 04/14/2025 12:45 PM Discharge Plan Visit Data Chief Complaint: Trauma ED Provider: Jose Kaye Discharge Problem: Multiple fractures of ribs, Chest wall contusion, Fall, Head injury, Contusion of arm, left, Dizziness, Elevated troponin I level Patient Disposition: Admitted As Inpatient Condition: Fair
[2025-04-14] MEDS: SODIUM CHLORIDE 0.9% 500 ML IV ONE (12:03)
--- NOTE | 2025-04-14 12:10 | XRay Report ---
XR chest 1V portable HISTORY: 79 years-old Male Trauma acute chest trauma. COMPARISON: Chest radiograph 03/18/2018 TECHNIQUE: AP view the chest FINDINGS: Left subclavian pacer/AICD. Cardiomegaly. Small left pleural effusion with mild left basilar opacitie s. No pneumothorax or overt pulmonary edema. The right lung is clear. The bones of the chest appear g rossly intact. IMPRESSION: 1. Cardiomegaly without overt pulmonary edema. 2. Small left pleural effusion with mild left basilar atelectasis. ACT 112: Negative or not required by law. The above report was generated using voice recognition software. It may contain grammatical, syntax o r spelling errors. Electronically signed by: Issa Gustafson M.D. 04/14/2025 12:09 PM
[2025-04-14 12:14] LABS: Hematocrit (blood only) 42.6 % (42.0-52.0); Hemoglobin 14.2 g/dL (14.0-18.0); Immature Granulocytes # (auto) 0.02 K/uL (0.01-0.20); Immature Granulocytes % (auto) 0.4 %; Mean Corpuscular Hemoglobin 32.8 pg (25.0-34.0); Mean Corpuscular Volume 98.4 fL (80.0-100.0); Platelet Count 173 K/uL (130-400); RDW Standard Deviation 45.6 fL (36.4-46.3); Red Blood Count 4.33 M/uL (4.70-6.10); White Blood Count 5.71 K/ul (4.8-10.8)
[2025-04-14 12:30] LABS: Alanine Aminotransferase 40 U/L (7-52); Albumin Globulin Ratio 1.3 (0.9-2); Albumin Level 4.1 gm/dl (3.4-5.0); Alkaline Phosphatase 81 U/L (34-104); Anion Gap 7 (3-11); Bilirubin,Total 0.7 mg/dl (0.2-1.0); Blood Urea Nitrogen 41 mg/dl (6-23); Calcium 9.4 mg/dl (8.6-10.3); Carbon Dioxide 26 mmol/L (21-32); Chloride 107 mmol/L (98-107); Globulin 3.2 gm/dl (2.5-4.0); Glucose 130 mg/dl (70-99(Fasting)); Lipase 32 U/L (11-82); Potassium 4.6 mmol/L (3.5-5.1); Sodium 140 mmol/L (136-145); Total Protein 7.3 gm/dl (6.0-8.3)
[2025-04-14] MEDS: OPTIRAY 320 100ml IV ONE (12:34)
[2025-04-14 12:41] LABS: Appearance Urine Clear (Clear); Glucose Urine UA Negative (Negative)
--- NOTE | 2025-04-14 12:46 | CT Scan Report ---
CT head/brain wo con CLINICAL HISTORY: 79 years-old Male with trauma. Acute head trauma TECHNIQUE: Multiple axial CT images of the head were obtained without contrast. A dose lowering tech nique was utilized adhering to the principles of ALARA. COMPARISON: None available FINDINGS: No acute intracranial hemorrhage, midline shift, intracranial mass, hydrocephalus, territorial ischem ia or abnormal extra-axial collection. Involutional changes of the brain parenchyma. Motion degraded exam. The calvarium is intact. The paranasal sinuses, mastoid air cells, and middle ear cavities are clear . IMPRESSION: No acute intracranial abnormality or calvarial fracture. ACT 112: Negative or not required by law. The above report was generated using voice recognition software. It may contain grammatical, syntax o r spelling errors. Electronically signed by: Issa Gustafson M.D. 04/14/2025 12:45 PM
--- NOTE | 2025-04-14 12:47 | CT Scan Report ---
CT SCAN OF THE CERVICAL SPINE CLINICAL HISTORY: Trauma COMPARISON STUDY: No priors TECHNIQUE: CT scan of the cervical spine is performed from the skull base to the upper thoracic spine . Images are reviewed in the axial, sagittal, and coronal planes. IV contrast was not administered fo r this examination. A dose lowering technique was utilized adhering to the principles of ALARA. FINDINGS: Skeletal structures: The skeletal structures are osteopenic. There is no evidence of fracture or subl uxation involving the cervical spine. Vertebral body height and alignment are maintained. There is st raightening of the cervical lordosis. Anterior osteophytes are seen throughout. The odontoid process and lateral masses are intact. The atlantoaxial articulation is preserved noting productive degenerat kisha change. The spinous processes appear intact. There is moderate multilevel cervical spondylosis. U ncovertebral and facet arthropathy contribute to neural foraminal narrowing at several levels. Intervertebral discs: Moderate disc space narrowing is seen at C4-C5, C5-C6, and C6-C7 with moderate endplate sclerosis. There is [id number] narrowing at C3-C4. Central canal: Posterior disc osteophyte complexes are seen at all cervical levels between C3-C4 and C6-C7. This likely contributes to mild multilevel acquired compromise of the central canal. Soft tissues: The prevertebral and paraspinous soft tissues are within normal limits. There is athero sclerotic calcification of the carotid bulbs. Pacemaker leads are seen at the left thoracic inlet. Calvarium: The visualized calvarium at the skull base appears intact. Brain parenchyma: Partially visualized brain parenchyma at the skull base is within normal limits. Sinuses and mastoids: The visualized paranasal sinuses are clear. The mastoid air cells are well pneu matized. Lung apices: Clear as visualized. IMPRESSION: 1. There is no evidence of fracture or subluxation involving the cervical spine. 2. Osteopenia and spondylotic change as above. ACT 112: Negative or not required by law. Electronically signed by: Valentín Peters M.D. 04/14/2025 12:46 PM
--- NOTE | 2025-04-14 12:49 | CT Scan Report ---
LUMBAR SPINE CT WITH CONTRAST CLINICAL HISTORY: Trauma. COMPARISON STUDY: CT of the abdomen and pelvis December 08, 2017. TECHNIQUE: Axial images of the lumbar spine were obtained following intravenous injection of 94 cc of Optiray 320 IV. Sagittal and coronal reformats were viewed. A dose lowering technique was utilized a dhering to the principles of ALARA. FINDINGS: Please note that the CT of the abdomen and pelvis will be reported separately. Alignment of the lumbar spine is anatomic. There are no lumbar spine fractures. There are no osseous lesions. The re is mild disc space narrowing with vacuum disc phenomenon at the L5-S1 level. The central canal and neural foramen are suboptimally assessed given CT technique. There is moderate multilevel facet arth rosis within lumbar spine. IMPRESSION: No lumbar spine fracture or subluxation. ACT 112: Negative or not required by law. Electronically signed by: Riley Malloy M.D. 04/14/2025 12:48 PM
--- NOTE | 2025-04-14 12:56 | CT Scan Report ---
CHEST CT WITH CONTRAST HISTORY: Acute bilateral rib pain status post fall Trauma TECHNIQUE: Multiaxial CT images of the chest were performed following the IV administration of 94 cc of Optiray. A dose lowering technique was utilized adhering to the principles of ALARA. COMPARISON: CT abdomen and pelvis and lumbar spine study same day FINDINGS: Subcentimeter thyroid nodules. Heart is mildly enlarged. No pericardial effusion. Left subc lavian pacer/AICD. No thoracic aortic aneurysm. No pulmonary emboli are seen. No pneumothorax, pleura l effusion, airspace consolidation, pulmonary edema, suspicious pulmonary nodule or mass. Mild linear left basilar predominant atelectasis. Punctate calcified granuloma of the right upper lobe. Central airways are patent. CT abdomen and pelvis dictated separately. No paravertebral edema. Degenerative changes of the should ers and spine. Acute nondisplaced fracture of the anterior left seventh rib. IMPRESSION: 1. Acute nondisplaced fracture of the anterior left seventh rib. 2. No pneumothorax or pleural effusion. ACT 112: Negative or not required by law. Electronically signed by: Issa Gustafson M.D. 04/14/2025 12:53 PM
--- NOTE | 2025-04-14 12:57 | CT Scan Report ---
CT SCAN OF THE ABDOMEN AND PELVIS WITH IV CONTRAST CLINICAL HISTORY: Trauma COMPARISON STUDY: Abdominal CT dated 12/08/2017. TECHNIQUE: Following the IV administration of 94 cc of Optiray 320, CT scan of the abdomen and pelvi s is performed from the lung bases to the proximal femora. Images are reviewed in the axial, sagittal , and coronal planes. IV contrast was administered without complication. A dose lowering technique wa s utilized adhering to the principles of ALARA. There is streak artifact from the arms which could no t be elevated above the abdomen. CT DOSE: 4360.55 mGy.cm FINDINGS: Lung bases: The heart is enlarged and without pericardial effusion. Pacemaker leads are in place. The re is bibasilar scarring/atelectasis. No airspace consolidation or pleural effusion is identified. Th ere is no basilar pneumothorax. Mild bronchiectasis is seen in the lower lobes. Liver: The contrast-enhanced liver is normal in size, contour, and attenuation. There is minimal cent ral intrahepatic biliary ductal dilatation. The hepatic veins and portal veins are patent. Gallbladder: Unremarkable. Spleen: Normal in size and attenuation. Pancreas: Moderately atrophic and grossly unremarkable. Adrenal glands: Unremarkable. Kidneys: The contrast enhanced kidneys demonstrate mild cortical atrophy and are without hydronephros is. The kidneys enhance symmetrically. Abdominal vasculature: The abdominal aorta is normal in course and caliber noting mild atheroscleroti c calcification. Bowel: There is moderate colonic diverticulosis without CT evidence of acute diverticulitis. No bowel obstruction is seen. Mild fecal retention is seen throughout the colon. The appendix is well-visual ized and normal. Peritoneum: There is no intraperitoneal free air or abdominal ascites. There is a tiny fat-containing umbilical hernia. Lymphadenopathy: None. Pelvic viscera: The prostate gland is mildly enlarged and heterogeneous. The bladder is distended but otherwise normal as imaged. There are bilateral fat-containing groin hernias. Skeletal structures: The skeletal structures are osteopenic. There are acute nondisplaced fractures o f the left anterior 5th through 7th ribs with mild overlying soft tissue contusion. The lumbosacral s pine, bony pelvis, and proximal femora appear intact. There is mild lumbosacral spondylosis. No lytic or blastic lesions are seen. Degenerative change is seen in the sacroiliac joints. Arthritic changes noted in the hips. IMPRESSION: 1. There are acute nondisplaced fractures of the left anterior 5th through 7th ribs. 2. No additional fracture is identified. 3. There is no evidence of solid organ injury in the abdomen or pelvis. 4. Cardiomegaly and cardiac pacemaker. 5. Colonic diverticulosis without CT evidence of acute diverticulitis. 6. Additional findings above. ACT 112: Negative or not required by law. Electronically signed by: Valentín Peters M.D. 04/14/2025 12:55 PM
[2025-04-14] MEDS: ACETAMINOPHEN 500 MG TAB PO SCH (14:32)
[2025-04-14] MEDS: LIDOCAINE 5% 1 PATCH TD SCH (14:32)
--- NOTE | 2025-04-14 14:56 | History & Physical Report ---
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 Fall, presyncope Likely secondary to orthostasis, rule out arrhythmia In the setting of nonischemic cardiomyopathy, status post AICD placement, Paroxysmal atrial fibrillation on Eliquis - As per patient baseline BP is on the low side at home and he intermittently experiences dizziness as well - blood pressure low 100s upon arrival to the ED - hold metoprolol,Lasix, spironolactone, Entresto for today IV NS at 60 cc/h ordered - follow-up pacemaker interrogation results cardiology service consulted Left rib fractures fifth-7, acute, nondisplaced secondary to fall - On room air, more than 90% O2 saturation - incentive spirometry, Lidoderm patch, Tylenol 1 g every 8 hours scheduled - hold Eliquis for today, resume tomorrow if patient remains stable Right frontal aspect head hematoma - secondary to fall - CT head no acute intracranial bleed - neurologically intact, hold Eliquis for today resume tomorrow if patient remains stable other chronic medical problems: CAD, 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 As per patient, his blood pressure is usually running systolic 90s when he would check his blood pressure before bedtime. He also reports intermittent dizziness at home. This morning, the patient show pulse no for about 20 minutes and then went back inside the house to rest for about half an hour. He then went outside again to resume shoveling snow, but as he bent down to supervisor opening and picking a shovel the patient felt very lightheaded, almost going to pass out, so he decided to walk a few steps to the porch To sit on the chair. Unfortunately, he was not able to make it to the chair and, fell over instead, hitting his chest on the side of the chair. He did not lose consciousness and was able to crawl his way inside the house. He also hit his head while calling back inside the house. He denies any Palpitations orsensation of firing from the AICD.He was able to call 911 for help and was brought to the ER. At the ER, blood pressure 114/79, heart rate 67, respiratory 18, afebrile, 95% on room air. EKG showing ventricular paced rhythm Hemoglobin 14 CT head: No acute intracranial abnormality or calvarial fracture CT cervical spine: No acute fracture or subluxation CT chest: nondisplaced, acute,Left rib fracture 5-7 CT abdomen and pelvis: No evidence of solid organ injury On my exam, patient seen resting in bed, not in distress, awake and alert, oriented x 3, answering questions appropriately, Very pleasant States he feels somewhat weak and still shaky, still having 6 out of 10 bilateral rib pain more on the left, worse with inspiration, but no shortness of breath Denies headache, nausea vomiting, blurring of vision, focal neurologic deficits no abdominal pain, hematuria No other pain in his body Allergies Allergy/AdvReac Type Severity Reaction Status Date / Time chocolate flavor Allergy Rash Verified 05/03/24 08:59 jeanette Allergy Mild Rash Uncoded 06/14/18 06:33 Home Medications Medication Instructions Recorded Confirmed Type aspirin 81 mg tablet,delayed 81 mg PO QAM 05/20/18 05/03/24 History release (Aspir-) atorvastatin 20 mg tablet 20 mg PO QAM 05/20/18 05/03/24 History folic acid 400 mcg tablet 0.4 mg PO QAM 05/20/18 05/03/24 History furosemide 20 mg tablet 20 mg PO QAM 05/20/18 05/03/24 History metoprolol succinate 25 mg 25 mg PO BID 05/20/18 05/03/24 History tablet,extended release 24 hr sacubitril 24 mg-valsartan 26 mg 1 tab PO BID 05/20/18 05/03/24 History tablet (Entresto) thiamine HCl (vitamin B1) 100 mg 100 mg PO QAM 05/20/18 05/03/24 History tablet Past Med/Surg History Problem List (Updated 04/14/25 @ 14:56 by Otto Caban MD) AICD (automatic cardioverter/defibrillator) present Pre-syncope Elevated troponin I level (Acute) Dizziness (Acute) Contusion of arm, left (Acute) Head injury (Acute) Fall (Acute) Chest wall contusion (Acute) Multiple fractures of ribs (Acute) Encounter for pre-operative examination CHF (congestive heart failure), NYHA class III Anasarca (Acute) NICM (nonischemic cardiomyopathy) Pt admitted for elective BIV ICD underwent procedure with the LV lead positioned in over the HIS bundle. Monitored overnight and discharged. LBBB (left bundle branch block) Congestive heart failure (Acute) Pleural effusion (Acute) Anasarca (Acute) Medical History (Updated 04/14/25 @ 14:56 by Otto Caban MD) Hyperlipidemia Surgical History (Updated 04/14/25 @ 15:04 by Otto Caban MD) History of cataract surgery LEFT ICD (implantable cardioverter-defibrillator) in place PLACED 03/2018 Pacemaker PLACED 03/2018 Family History Brother Family history of diabetes mellitus Brother Family history of diabetes mellitus Social History Smoking Status: Never smoker Second Hand Exposure: Yes (VERY LITTLE); Do You Dip or Chew Tobacco: Yes; Hx Alcohol Use: No Hx Substance Use: No Preferred Language: Guatemalan Communication Ability: Effective Zigzag Elastic Attacher Required: No Beliefs That Will Affect Care: None Current Living Situation: Alone Feels Safe at Home: Yes Assistive Devices: None Review of Systems Review of Systems: all noted and negative except for above Physical Exam Physical Exam: General- oriented x 3, not in distress, speaks in sentences with no effort or accessory muscle use Head- positive small hematoma/contusion on the right frontal aspect, otherwise no other obvious signs of injuries Eyes- PERRL, EOMI, anicteric ENT- positive dry oral mucosa,oropharynx clear Neck- supple, no JVD, no adenopathy, no thyromegaly; carotids +2/2, no bruits appreciated Lungs- clear to auscultation bilaterally, no rales/wheezes Heart- normal rate, regular rhythm; no murmur, no gallop, no rub appreciated Abdomen- normal bowel sounds, nondistended, soft, nontender, no masses or hep atosplenomegaly Extremities- left arm: Positive faint hematoma on the bicep area no pretibial edema, no calf tenderness; peripheral pulses intact Neuro- alert, oriented x 3; CN 2-12 grossly intact; motor 5/5 bilaterally;sensation 100% on all extremities; no other gross focal neurologic deficits Skin- warm & dry Results & Data Results & Data Vital Signs (Past 12 Hours) Vital Signs Temp Pulse Pulse Resp BP BP Pulse Ox 04/14/25 13:00 97 04/14/25 13:00 36.5 C 75 19 102/64 97 04/14/25 13:00 68 19 102/64 92 04/14/25 12:47 57 L 19 106/66 94 04/14/25 11:47 96 04/14/25 11:47 36.6 C 67 18 114/79 95 O2 Del Method O2 Flow Rate 04/14/25 13:00 Room Air 04/14/25 13:00 Room Air 0 04/14/25 13:00 Room Air 04/14/25 12:47 Room Air 04/14/25 11:47 Room Air 04/14/25 11:47 Room Air all noted and reviewed including below Code Status & VTE Plan VTE Prophylaxis Plan VTE Prophylaxis will be ordered: Yes
[2025-04-14 15:39] LABS: INR 1.1 (0.9-1.1); Partial Thromboplastin Time 27 Seconds (21-31); Prothrombin Time 11.4 Seconds (9.0-12.0)
--- NOTE | 2025-04-14 16:28 | Cardiology Consultation ---
Date of Consultation April 14, 2025 Assessment & Plan (1) Dizziness: (2) Fall: (3) Chest wall contusion: (4) Multiple fractures of ribs: (5) NICM (nonischemic cardiomyopathy): (6) AICD (automatic cardioverter/defibrillator) present: Remote device interrogation was sent from the emergency department today. This was reviewed with the [facility] electromedical equipment technician. Patient is chronically ventricular paced 99% of the time. No arrhythmia episodes occurred at the time of today's event. Normal device function noted. Generator longevity around 3 years. Summary of ttecho performed as an outpatient on 07/29/24: The qualitative LV ejection fraction is 40-44% (mildly reduced). The LV wall thickness is mildly increased (concentric). The septal motion is abnormal consistent with left bundle branch block. The remaining left ventricular wall segments are mildly hypokinetic. Mild tricuspid regurgitation is present. There is no evidence of pulmonary hypertension. Compared to last available study changes are noted as follows: Left ventricular systolic function has improved. CT Chest / abd/ pelvis performed as part of trauma work up today revealed no pericardial effusion, no pleural effusion. There are acute nondisplaced fractures of the left anterior 5th through 7th ribs. Past progress notes described with limitations with regards to titrating congestive heart failure medication due to orthostatic hypotension. The patient states that he takes his furosemide and spironolactone 3 days/week and typically feels dizzy when he takes these. * Continue metoprolol, amiodarone, atorvastatin * Agree with holding Eliquis, Entresto, furosemide, spironolactone tonight. * mild troponin elevation likely due to myocardial strain and chest trauma. * follow Hbg / Hct. * Further recommendations will be forthcoming as hospital stay develops. Donya Schulte DO History of Present Illness Reason for Consultation: Syncope , fall, history of cardiomyopathy , AICD Requesting Physician: Otto Caban MD Attending Physician: Otto Caban MD History of Present Illness Mr Dos Santos states that he lives in alone, independently. He was working on shoveling the lights no fall this morning. He states his typical routine is to do short shifts. He had plan to go outside and do a little bit of snow removal and then have breakfast. He went out on his porch and attempted to picker / packer his shuffle when he became lightheaded and fell like he was going to pass out. He attempted to brace himself with a nearby chair but he was unable to catch himself and time and he fell impacting the chair across his anterior chest. He did not lose consciousness per his recollection. He also hit his right forehead. He cannot get up and consequently crawled into his home. EKG performed on arrival today at 11:47 AM was reviewed/interpreted independently revealing sinus rhythm at 68 bpm with ventricular paced QRS complexes. The patient has been admitted and transferred to ICU room 109. He is hemodynamically stable and has no acute complaints other than ongoing chest wall pain. Telemetry reveals ventricular paced rhythm in the 60s to 70s. 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 pAF on amiodarone which was initiated in 2019 and Eliquis [id number] score 4 (age, CHF, CAD) Hypothyroidism HLD PVCs Prediabetes CKD stage III Chronic tobacco abuse (Snuff) Allergies Allergy/AdvReac Type Severity Reaction Status Date / Time chocolate flavor Allergy Rash Verified 05/03/24 08:59 jeanette Allergy Mild Rash Uncoded 06/14/18 06:33 Home Medications Medication Instructions Recorded Confirmed Type atorvastatin 20 mg tablet 20 mg PO QAM 05/20/18 04/14/25 History folic acid 400 mcg tablet 0.4 mg PO QAM 05/20/18 04/14/25 History metoprolol succinate 25 mg 25 mg PO HS 05/20/18 04/14/25 History tablet,extended release 24 hr sacubitril 24 mg-valsartan 26 mg 1 tab PO BID 05/20/18 04/14/25 History tablet (Entresto) thiamine HCl (vitamin B1) 100 mg 100 mg PO QAM 05/20/18 04/14/25 History tablet amiodarone 200 mg tablet 200 mg PO QAM 04/14/25 04/14/25 History apixaban 5 mg tablet (Eliquis) 5 mg PO BID 04/14/25 04/14/25 History cyclobenzaprine 10 mg tablet 5 mg PO DAILY PRN Pain 04/14/25 04/14/25 History furosemide 20 mg tablet 20 mg PO 3XWK 04/14/25 04/14/25 History latanoprostene bunod 0.024 % eye 1 drp ophthalmic (eye) HS 04/14/25 04/14/25 History drops (Vyzulta) levothyroxine 50 mcg tablet 50 mcg PO QAM 04/14/25 04/14/25 History spironolactone 25 mg tablet 12.5 mg PO 3XWK 04/14/25 04/14/25 History timolol maleate 0.25 % eye drops 1 drp ophthalmic (eye) QAM 04/14/25 04/14/25 History Patient History Medical History Hyperlipidemia Surgical History History of cataract surgery LEFT ICD (implantable cardioverter-defibrillator) in place PLACED 03/2018 Pacemaker PLACED 03/2018 Family History Brother Family history of diabetes mellitus Brother Family history of diabetes mellitus Social History Smoking Status: Never smoker Tobacco Type: Smokeless Tobacco (Dip or Chew) Second Hand Exposure: No; Do You Dip or Chew Tobacco: Yes; Hx Alcohol Use: No Hx Substance Use: No Preferred Language: Fijian Communication Ability: Effective Licensed Psychologist Manager Required: No Beliefs That Will Affect Care: None Current Living Situation: Alone Other Information That Helps Us Care for You: No Feels Safe at Home: Yes Safety Concerns: Feels Safe At This Time Assistive Devices: Cane and Walker Review of Systems Review of Systems: All systems reviewed & are unremarkable except as noted in HPI & below Physical Exam Physical Exam: Temp Pulse Resp BP Pulse Ox O2 Del Method O2 Flow Rate 36.5 C 62 19 131/79 93 Room Air 0 04/14/25 13:00 04/14/25 15:42 04/14/25 15:42 04/14/25 15:42 04/14/25 15:42 04/14/25 16:19 04/14/25 13:00 Constitutional: + thin; no acute distress Eyes: PERRL, conjunctivae normal, anicteric sclerae ENMT: contusion noted over right scalp Respiratory: normal respiratory effort, lungs clear to auscultation Cardiovascular: RRR, no murmur, no edema Chest (Breasts): Additional Comments: left infraclavicular AICD pocket clean, dry , and intact Gastrointestinal (Abdomen): normal bowel sounds, soft, nontender, no hepatosplenomegaly Neurologic: PERRL, EOMI, accommodation nl, no face palsy, no dysarthria Results & Data Vital Signs (Past 12 Hours) Vital Signs Temp Pulse Pulse Resp BP BP Pulse Ox 04/14/25 16:19 04/14/25 15:42 62 19 131/79 93 04/14/25 15:05 66 15 99/68 L 95 04/14/25 13:00 97 04/14/25 13:00 36.5 C 75 19 102/64 97 04/14/25 13:00 68 19 102/64 92 04/14/25 12:47 57 L 19 106/66 94 04/14/25 11:47 96 04/14/25 11:47 36.6 C 67 18 114/79 95 O2 Del Method O2 Flow Rate 04/14/25 16:19 Room Air 04/14/25 15:42 Room Air 04/14/25 15:05 Room Air 04/14/25 13:00 Room Air 04/14/25 13:00 Room Air 0 04/14/25 13:00 Room Air 04/14/25 12:47 Room Air 04/14/25 11:47 Room Air 04/14/25 11:47 Room Air Laboratory Results Cardiac Enzymes 04/14/25 04/14/25 Range/Units 11:50 13:40 AST 34 (13-39) U/L Troponin I High Sens 31.2 H 61.2 H* D (0-20) pg/ml Coagulation 04/14/25 04/14/25 04/14/25 Range/Units 11:50 12:45 14:39 PT Cancelled Cancelled 11.4 APTT Cancelled Cancelled 27 CBC 04/14/25 Range/Units 11:50 WBC 5.71 (4.8-10.8) K/ul RBC 4.33 L (4.70-6.10) M/uL Hgb 14.2 (14.0-18.0) g/dL Hct 42.6 (42.0-52.0) % Plt Count 173 (130-400) K/uL Neut # (Auto) 4.48 (1.40-6.50) K/uL Lymph # (Auto) 0.73 L (1.20-3.40) K/uL [place] # (Auto) 0.44 (0.11-0.59) K/uL Eos # (Auto) 0.03 (0.00-0.50) K/uL Baso # (Auto) 0.01 (0.00-0.20) K/uL Comprehensive Metabolic Panel 04/14/25 Range/Units 11:50 Sodium 140 (136-145) mmol/L Potassium 4.6 (3.5-5.1) mmol/L Chloride 107 (98-107) mmol/L Carbon Dioxide 26 (21-32) mmol/L BUN 41 H (6-23) mg/dl Creatinine 1.21 (0.6-1.4) mg/dl Glucose 130 H (70-99(Fasting)) mg/dl Calcium 9.4 (8.6-10.3) mg/dl AST 34 (13-39) U/L ALT 40 (7-52) U/L Alkaline Phosphatase 81 (34-104) U/L Total Protein 7.3 (6.0-8.3) gm/dl Albumin 4.1 (3.4-5.0) gm/dl Intake and Output 04/14/25 04/14/25 04/14/25 06:59 14:59 22:59 Intake Total 500 / 500 Balance 500 / 500 Intake: IV 500 / 500 Sodium Chloride 0.9% 500 ml @ 500 / 500 999 mls/hr IV .Q31M ONE Rx#: [id number] Other: Weight 90.5 kg 85.275 kg Weight Measurement Method Built in Bedscale Built in Bedscale Patient Weight 04/15/25 06:59 Weight 85.275 kg Diagnostic Findings as noted. PG Care Time/CCT Total # of Minutes Spent Total Time Spent with Patient: Total time spent is greater than 50% in coordination of care (as documented) at patient's floor/unit and/or counseling patient: Coding Level of Care Code 12239 IN/OBS CONSULT LVL 4,60M Diagnoses Dizziness R42 Fall W19.XXXA Chest wall contusion S20.219A Multiple fractures of ribs S22.49XA NICM (nonischemic cardiomyopathy) I42.8 AICD (automatic cardioverter/defibrillator) present Z95.810
--- NOTE | 2025-04-14 17:30 | Critical Care Consultation ---
Date of Consultation April 14, 2025 Assessment & Plan (1) Head injury: (2) Multiple fractures of ribs: (3) NICM (nonischemic cardiomyopathy): (4) LBBB (left bundle branch block): (5) Hypothyroidism: (6) Elevated troponin: (7) Dyslipidemia: (8) Syncopal episodes: (9) A-fib: Plan CT chest 04/14/2025 personally reviewed: Linear taxis of the inferior lobe of the lingula Motion degraded study Minimal bronchiectasis in the right lower lobe Dependent atelectasis of bilateral lower lobes No significant mediastinal lymphadenopathy --Right frontal aspect head hematoma CT of the neck negative for any acute abnormality CT head negative for intracranial bleed CT lumbar spine negative --Multiple left-sided nondisplaced rib fractures Left anterior 5-6-7. Mechanical Continue with pain management Continue with incentive spirometry --Elevated troponin Likely type II TX Continue to trend --History of systolic CHF On Entresto, metoprolol succinate 25 nightly spironolactone 12.5 --A-fib On Eliquis and amiodarone at home -- Hypothyroidism Continue with levothyroxine 50 mcg --Dyslipidemia On atorvastatin 20 --Prophylaxis VTE: Eliquis on hold GI: None Lines: Peripheral Diet: Regular Plan: Fall precautions Cardiology is on board, they are going to interpret the pacemaker Follow-up TSH Will give 5% albumin for borderline low blood pressure Will need adjustments to the blood pressure medications, hold evening dose of metoprolol succinate Continue with incentive spirometry, pain management for left-sided pain I spent more than 64 minutes looking in the chart, images, discussing the plan of care with the patient, RN as well as primary team Please note the above document was generated using voice recognition software. It may contain grammatical, syntax or spelling errors.Any formal questions or concerns about the content, text or information contained within the body of this dictation should be directly addressed to the provider for clarification. History of Present Illness Attending Physician: Otto Caban MD History of Present Illness 79-year-old male presented to the hospital with fall, was found to have multiple left-sided rib fractures nondisplaced. Sent to ICU for further care Past medical history: A-fib on Eliquis, CKD, hypothyroidism, nonischemic cardiomyopathy, s/p AICD At the time of examination patient was not in any respiratory distress Patient was saturating 95 to 96% on room air. Systolic blood pressure was initially in the 90s but on the repeat blood pressure did go up to high 90s with MAP in the mid 60s. He did complain of some discomfort on the left side especially when he takes a deep breath in. He stated that he was outside showing the snow when he felt dizzy and he fell on the floor. Similar instance happened approximately a year ago for which he was worked out and everything was okay with his heart. Denied any shock from his device No dysuria or diarrhea prior to coming to the hospital Denies any cough, no hemoptysis No hematuria, occasionally has blood in the stools which she relates to the history of hemorrhoids. No epistaxis No unusual headache or blurry vision Fair appetite Does complain of cough when he is eating or drinking. Social history: Approximately 5-pack-year smoking history when he was in the [employer]. 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 Denies any personal or family history of asthma No history of lung cancer in the family Allergies Allergy/AdvReac Type Severity Reaction Status Date / Time chocolate flavor Allergy Rash Verified 05/03/24 08:59 jeanette Allergy Mild Rash Uncoded 06/14/18 06:33 Home Medications Medication Instructions Recorded Confirmed Type atorvastatin 20 mg tablet 20 mg PO QAM 05/20/18 04/14/25 History folic acid 400 mcg tablet 0.4 mg PO QAM 05/20/18 04/14/25 History metoprolol succinate 25 mg 25 mg PO HS 05/20/18 04/14/25 History tablet,extended release 24 hr sacubitril 24 mg-valsartan 26 mg 1 tab PO BID 05/20/18 04/14/25 History tablet (Entresto) thiamine HCl (vitamin B1) 100 mg 100 mg PO QAM 05/20/18 04/14/25 History tablet amiodarone 200 mg tablet 200 mg PO QAM 04/14/25 04/14/25 History apixaban 5 mg tablet (Eliquis) 5 mg PO BID 04/14/25 04/14/25 History cyclobenzaprine 10 mg tablet 5 mg PO DAILY PRN Pain 04/14/25 04/14/25 History furosemide 20 mg tablet 20 mg PO 3XWK 04/14/25 04/14/25 History latanoprostene bunod 0.024 % eye 1 drp ophthalmic (eye) HS 04/14/25 04/14/25 History drops (Vyzulta) levothyroxine 50 mcg tablet 50 mcg PO QAM 04/14/25 04/14/25 History spironolactone 25 mg tablet 12.5 mg PO 3XWK 04/14/25 04/14/25 History timolol maleate 0.25 % eye drops 1 drp ophthalmic (eye) QAM 04/14/25 04/14/25 History Patient History Medical History (Updated 04/14/25 @ 17:48 by Isaías Alas MD, [facility]) Hyperlipidemia Surgical History (Updated 04/14/25 @ 15:04 by Otto Caban MD) History of cataract surgery LEFT ICD (implantable cardioverter-defibrillator) in place PLACED 03/2018 Pacemaker PLACED 03/2018 Family History Brother Family history of diabetes mellitus Brother Family history of diabetes mellitus Social History Smoking Status: Never smoker Tobacco Type: Smokeless Tobacco (Dip or Chew) Second Hand Exposure: No; Do You Dip or Chew Tobacco: Yes; Hx Alcohol Use: No Hx Substance Use: No Preferred Language: Luxembourgish Communication Ability: Effective Shipping Checker Required: No Beliefs That Will Affect Care: None Current Living Situation: Alone Other Information That Helps Us Care for You: No Feels Safe at Home: Yes Safety Concerns: Feels Safe At This Time Assistive Devices: Cane and Walker Review of Systems 2 Review of Systems: All systems reviewed & are unremarkable except as noted in HPI & below Physical Exam 2 Physical Exam: Constitutional: No acute distress HEENT: EOMI, PERRLA, bruising appreciated on the right lateral frontotemporal Respiratory system: Decreased air entry bilaterally, no wheeze, no rhonchi, minimal crackles bilaterally CVS: S1-S2 positive, no murmurs or gallops, distant heart sounds Abdomen: Soft, nontender, nondistended, positive bowel sounds x4 Extremities: +2 pulses bilaterally radialis/ dorsalis pedis, no cyanosis, no edema Neuro: Awake alert oriented x3 Psych: Normal mood and affect G/U: No [place] Skin: no rashes, warm and dry Lymphatic: no cervical or axillary lymphadenopathy Results & Data Results & Data Vital Signs (Past 12 Hours) Vital Signs Temp Pulse Pulse Resp BP BP Pulse Ox 04/14/25 16:19 04/14/25 15:42 62 19 131/79 93 04/14/25 15:05 66 15 99/68 L 95 04/14/25 13:00 97 04/14/25 13:00 36.5 C 75 19 102/64 97 04/14/25 13:00 68 19 102/64 92 04/14/25 12:47 57 L 19 106/66 94 04/14/25 11:47 96 04/14/25 11:47 36.6 C 67 18 114/79 95 O2 Del Method O2 Flow Rate 04/14/25 16:19 Room Air 04/14/25 15:42 Room Air 04/14/25 15:05 Room Air 04/14/25 13:00 Room Air 04/14/25 13:00 Room Air 0 04/14/25 13:00 Room Air 04/14/25 12:47 Room Air 04/14/25 11:47 Room Air 04/14/25 11:47 Room Air Laboratory Results 04/14/25 11:50 04/14/25 11:50 Coding Level of Care Code 78920 IN/OBS CONSULT LVL 4,60M Diagnoses Head injury S09.90XA Multiple fractures of ribs S22.49XA NICM (nonischemic cardiomyopathy) I42.8 LBBB (left bundle branch block) I44.7 Hypothyroidism E03.9 Elevated troponin R79.89 Dyslipidemia E78.5 Syncopal episodes R55 A-fib I48.91
[2025-04-14] MEDS: SODIUM CHLORIDE 0.9% 1,000 ML IV SCH (17:35)
[2025-04-14] MEDS: ALBUMIN 5% 250 ML IV ONE (17:55)
[2025-04-14 18:25] LABS: Thyroid Stimulating Hormone 4.048 uIu/ml (0.300-4.500)
[2025-04-14] MEDS: METOPROLOL SUCC 25MG EXT REL TAB PO SCH (20:57)
[2025-04-14] MEDS: REMOVE LIDODERM PATCH SCH (20:58)
[2025-04-15 04:56] LABS: Hematocrit (blood only) 37.8 % (42.0-52.0); Hemoglobin 12.1 g/dL (14.0-18.0); Immature Granulocytes # (auto) 0.01 K/uL (0.01-0.20); Immature Granulocytes % (auto) 0.2 %; Mean Corpuscular Hemoglobin 32.2 pg (25.0-34.0); Mean Corpuscular Volume 100.5 fL (80.0-100.0); Platelet Count 137 K/uL (130-400); RDW Standard Deviation 47.1 fL (36.4-46.3); Red Blood Count 3.76 M/uL (4.70-6.10); White Blood Count 4.55 K/ul (4.8-10.8)
[2025-04-15 05:11] LABS: Alanine Aminotransferase 29.0 U/L (7-52); Albumin Globulin Ratio 1.4 (0.9-2); Albumin Level 3.6 gm/dl (3.4-5.0); Alkaline Phosphatase 67.0 U/L (34-104); Anion Gap 8.0 (3-11); Bilirubin,Total 0.9 mg/dl (0.2-1.0); Blood Urea Nitrogen 37.0 mg/dl (6-23); Calcium 8.9 mg/dl (8.6-10.3); Carbon Dioxide 25.0 mmol/L (21-32); Chloride 106.0 mmol/L (98-107); Creatinine Clr Calc Pharmacy 54.2 ml/min; Globulin 2.5 gm/dl (2.5-4.0); Glucose 90.0 mg/dl (70-99(Fasting)); Potassium 3.9 mmol/L (3.5-5.1); Sodium 139.0 mmol/L (136-145); Total Protein 6.1 gm/dl (6.0-8.3)
[2025-04-15] MEDS: LEVOTHYROXINE SODIUM 50 MCG TABLET PO SCH (06:06)
[2025-04-15] MEDS: ATORVASTATIN 20 MG TAB PO SCH (08:01)
[2025-04-15] MEDS: AMIODARONE 200 MG TAB PO SCH (08:01)
[2025-04-15] MEDS: THIAMINE HCL 100 MG TAB PO SCH (08:01)
[2025-04-15] MEDS: FOLIC ACID 400 MCG TAB PO SCH (08:01)
--- NOTE | 2025-04-15 08:27 | Cardiology Progress Note ---
Date of Service April 15, 2025 Assessment & Plan (1) Dizziness: (2) Fall: (3) Chest wall contusion: (4) Multiple fractures of ribs: (5) NICM (nonischemic cardiomyopathy): (6) AICD (automatic cardioverter/defibrillator) present: Plan: Remote device interrogation was sent from the emergency department today 04/14/25 and I reviewed the findings with the [facility] medical practice manager. Patient is chronically ventricular paced 99% of the time. No arrhythmia episodes occurred at the time of event. Normal device function noted. Generator longevity around 3 years. Patient did have an EKG on arrival to the emergency department that is available for review in [employer] web revealing SR with ventricular paced QRS complexes. Summary of ttecho performed as an outpatient on 07/29/24: The qualitative LV ejection fraction is 40-44% (mildly reduced). The LV wall thickness is mildly increased (concentric). The septal motion is abnormal consistent with left bundle branch block. The remaining left ventricular wall segments are mildly hypokinetic. Mild tricuspid regurgitation is present. There is no evidence of pulmonary hypertension. Compared to last available study changes are noted as follows: Left ventricular systolic function has improved. CT Chest / abd/ pelvis performed as part of trauma work up today revealed no pericardial effusion, no pleural effusion. There are acute nondisplaced fractures of the left anterior 5th through 7th ribs. Past progress notes described with limitations with regards to titrating congestive heart failure medication due to orthostatic hypotension. The patient states that he takes his furosemide and spironolactone 3 days/week and typically feels dizzy when he takes these. * Continue metoprolol, amiodarone, atorvastatin * Agree with holding Eliquis, Entresto, furosemide, spironolactone given ongoing hypotension, SBP in the 90 to low 100's. * Agree with orthostatic vital signs. * would re-introduce Entresto first 24/26 mg tab 1/2 BID. * mild troponin elevation likely due to myocardial strain and chest trauma. * follow Hbg / Hct if stable tomorrow, consider resuming Eliquis. * Non emergent in person device interrogation recommended during this stay or as an outpatient as generator longevity lower than anticipated for a device place a year ago. Donya Schulte , Admission and Anticipated Discharge Date Admission Date: April 14, 2025 Subjective Patient seen in cardiology follow-up. No acute complaints with the exception of chest wall pain with inspiration. Review of Systems Review of Systems: All systems reviewed & are unremarkable except as noted in HPI & below Physical Exam Physical Exam: Temp Pulse Resp BP Pulse Ox O2 Del Method O2 Flow Rate 36.5 C 62 19 131/79 93 Room Air 0 04/14/25 13:00 04/14/25 15:42 04/14/25 15:42 04/14/25 15:42 04/14/25 15:42 04/14/25 16:19 04/14/25 13:00 Constitutional: + thin; no acute distress Eyes: PERRL, conjunctivae normal, anicteric sclerae Respiratory: normal respiratory effort, lungs clear to auscultation Cardiovascular: RRR, no murmur, no edema Vessels: no JVD Chest (Breasts): Additional Comments: Left infraclavicular AICD site clean dry and intact Gastrointestinal (Abdomen): normal bowel sounds, soft, nontender, no hepatosplenomegaly Musculoskeletal: Tenderness on palpation over at the anterior chest wall, ribs, no superficial bruising. Neurologic: PERRL, EOMI, accommodation nl, no face palsy, no dysarthria Results & Data Vital Signs (Past 12 Hours) Vital Signs Temp Pulse Resp BP Pulse Ox O2 Del Method 04/15/25 08:07 36.4 C L 04/15/25 06:00 60 18 99/63 L 95 Room Air 04/15/25 05:00 60 14 95/58 L 94 Room Air 04/15/25 04:23 60 16 108/61 94 Room Air 04/15/25 04:00 60 15 99/63 L 93 Room Air 04/15/25 03:00 60 18 95/62 L 95 Room Air 04/15/25 02:00 60 17 90/61 L 96 Room Air 04/15/25 01:00 60 14 94/65 L 94 Room Air 04/15/25 00:00 60 15 95/63 L 94 Room Air 04/15/25 00:00 60 04/14/25 23:05 60 21 124/68 93 Room Air 04/14/25 23:00 60 16 96 Room Air 04/14/25 22:00 60 20 92 Room Air 04/14/25 22:00 112/76 04/14/25 21:11 Room Air 04/14/25 21:01 60 15 97/64 L 96 Room Air Laboratory Results Cardiac Enzymes 04/14/25 04/14/25 04/15/25 Range/Units 11:50 13:40 04:10 AST 34 28 (13-39) U/L Troponin I High Sens 31.2 H 61.2 H* D (0-20) pg/ml Coagulation 04/14/25 04/14/25 04/14/25 Range/Units 11:50 12:45 14:39 PT Cancelled Cancelled 11.4 APTT Cancelled Cancelled 27 CBC 04/14/25 04/15/25 Range/Units 11:50 04:10 WBC 5.71 4.55 L (4.8-10.8) K/ul RBC 4.33 L 3.76 L (4.70-6.10) M/uL Hgb 14.2 12.1 L (14.0-18.0) g/dL Hct 42.6 37.8 L (42.0-52.0) % Plt Count 173 137 (130-400) K/uL Neut # (Auto) 4.48 3.06 (1.40-6.50) K/uL Lymph # (Auto) 0.73 L 0.88 L (1.20-3.40) K/uL [place] # (Auto) 0.44 0.54 (0.11-0.59) K/uL Eos # (Auto) 0.03 0.05 (0.00-0.50) K/uL Baso # (Auto) 0.01 0.01 (0.00-0.20) K/uL Comprehensive Metabolic Panel 04/14/25 04/15/25 Range/Units 11:50 04:10 Sodium 140 139 (136-145) mmol/L Potassium 4.6 3.9 (3.5-5.1) mmol/L Chloride 107 106 (98-107) mmol/L Carbon Dioxide 26 25 (21-32) mmol/L BUN 41 H 37 H (6-23) mg/dl Creatinine 1.21 1.27 (0.6-1.4) mg/dl Glucose 130 H 90 (70-99(Fasting)) mg/dl Calcium 9.4 8.9 (8.6-10.3) mg/dl AST 34 28 (13-39) U/L ALT 40 29 (7-52) U/L Alkaline Phosphatase 81 67 (34-104) U/L Total Protein 7.3 6.1 (6.0-8.3) gm/dl Albumin 4.1 3.6 (3.4-5.0) gm/dl Intake and Output 04/14/25 04/15/25 04/15/25 22:59 06:59 14:59 Intake Total 330 / 910 80 / 910 Output Total 375 / 575 200 / 575 Balance -45 / 335 -120 / 335 Intake: IV 250 / 750 Albumin 5% 250 ml @ 500 mls/hr 250 / 250 IV ONE ONE Rx#:[id number] Oral 80 / 160 80 / 160 Output: Urine 375 / 575 200 / 575 # Bowel Movements 0 / 0 Other: Weight 85.275 kg 85.2 kg Weight Measurement Method Built in Bedscale Built in Bedscale Coding Level of Care Code 43951 SUB INP/OBS CARE 3/50MIN Diagnoses Dizziness R42 Fall W19.XXXA Chest wall contusion S20.219A Multiple fractures of ribs S22.49XA NICM (nonischemic cardiomyopathy) I42.8 AICD (automatic cardioverter/defibrillator) present Z95.810
--- NOTE | 2025-04-15 08:34 | Critical Care Progress Note ---
Date of Service April 15, 2025 Assessment & Plan (1) Head injury: (2) Multiple fractures of ribs: (3) NICM (nonischemic cardiomyopathy): (4) LBBB (left bundle branch block): (5) Hypothyroidism: (6) Elevated troponin: (7) Dyslipidemia: (8) Syncopal episodes: (9) A-fib: Plan CT chest 04/14/2025 personally reviewed: Linear taxis of the inferior lobe of the lingula Motion degraded study Minimal bronchiectasis in the right lower lobe Dependent atelectasis of bilateral lower lobes No significant mediastinal lymphadenopathy --Right frontal aspect head hematoma CT of the neck negative for any acute abnormality CT head negative for intracranial bleed CT lumbar spine negative --Multiple left-sided nondisplaced rib fractures Left anterior 5-6-7. Mechanical Continue with pain management Continue with incentive spirometry --Elevated troponin Likely type II VT Continue to trend --History of systolic CHF On Entresto, metoprolol succinate 25 nightly spironolactone 12.5 --A-fib On Eliquis and amiodarone at home -- Hypothyroidism Continue with levothyroxine 50 mcg TSH within normal limit --Dyslipidemia On atorvastatin 20 --Prophylaxis VTE: Eliquis on hold GI: None Lines: Peripheral Diet: Regular Plan: In/out: +335, urine output 575 Chest x-ray on personal review from today shows some atelectasis in the left lower lobe, no signs of pneumothorax Resume Eliquis Continue with incentive spirometry, pain management for left-sided pain Blood pressure med adjustment as per cardiology Hemodynamically stable to be downgrade to medical floor Case discussed with primary team Please note the above document was generated using voice recognition software. It may contain grammatical, syntax or spelling errors.Any formal questions or concerns about the content, text or information contained within the body of this dictation should be directly addressed to the provider for clarification. Admission and Anticipated Discharge Date Admission Date: April 14, 2025 Subjective Patient seen and examined at bedside. No acute distress, no direct events overnight Still complaining of some mild chest pain on the left side when he takes deep breath in but has been using incentive spirometry on a regular basis No cough No shortness of breath Was saturating 96% on room air Systolic blood pressure was in 110s with heart rate in the mid to high 60s + Headache early in the morning which went away on its own Fair appetite No nausea or vomiting Review of Systems 2 Review of Systems: All systems reviewed & are unremarkable except as noted in Subjective Physical Exam 2 Physical Exam: Constitutional: No acute distress HEENT: EOMI, PERRLA, bruising appreciated on the right lateral frontotemporal Respiratory system: Decreased air entry bilaterally, no wheeze, no rhonchi, mild crackles bilaterally CVS: S1-S2 positive, no murmurs or gallops, distant heart sounds Abdomen: Soft, nontender, nondistended, positive bowel sounds x4 Extremities: +2 pulses bilaterally radialis/ dorsalis pedis, no cyanosis, no edema Neuro: Awake alert oriented x3 Psych: Normal mood and affect G/U: No [place] Skin: no rashes, warm and dry Lymphatic: no cervical or axillary lymphadenopathy Results & Data Results & Data Vital Signs (Past 12 Hours) Vital Signs Temp Pulse Resp BP Pulse Ox O2 Del Method 04/15/25 08:07 36.4 C L 04/15/25 06:00 60 18 99/63 L 95 Room Air 04/15/25 05:00 60 14 95/58 L 94 Room Air 04/15/25 04:23 60 16 108/61 94 Room Air 04/15/25 04:00 60 15 99/63 L 93 Room Air 04/15/25 03:00 60 18 95/62 L 95 Room Air 04/15/25 02:00 60 17 90/61 L 96 Room Air 04/15/25 01:00 60 14 94/65 L 94 Room Air 04/15/25 00:00 60 15 95/63 L 94 Room Air 04/15/25 00:00 60 04/14/25 23:05 60 21 124/68 93 Room Air 04/14/25 23:00 60 16 96 Room Air 04/14/25 22:00 60 20 92 Room Air 04/14/25 22:00 112/76 04/14/25 21:11 Room Air 04/14/25 21:01 60 15 97/64 L 96 Room Air Laboratory Results 04/15/25 04:10 04/15/25 04:10 Coding Level of Care Code 31228 SUB INP/OBS CARE 2/35MIN Diagnoses Head injury S09.90XA Multiple fractures of ribs S22.49XA NICM (nonischemic cardiomyopathy) I42.8 LBBB (left bundle branch block) I44.7 Hypothyroidism E03.9 Elevated troponin R79.89 Dyslipidemia E78.5 Syncopal episodes R55 A-fib I48.91
--- NOTE | 2025-04-15 09:06 | XRay Report ---
Technique: A frontal view of the chest was obtained Comparison is made with the prior examination dated 03/18/2018 Findings: There is mild left lung base opacity that dissected due to atelectasis or scar. The heart size is within normal limits. No right pleural effusion or pneumothorax is seen. There is a suspected small left pleural effusion. No fracture is noted. There is a left chest wall pacemaker device Impression: Small left pleural effusion and left lung base atelectasis Electronically signed by Kevin Sy 04-15-2025 09:06 AM
[2025-04-15] MEDS: APIXABAN 5 MG TABLET PO SCH (09:46)
--- NOTE | 2025-04-15 11:47 | Hospitalist Progress Note ---
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 Fall, presyncope: Likely secondary to orthostasis, rule out arrhythmia In the setting of nonischemic cardiomyopathy, status post AICD placement, Paroxysmal atrial fibrillation on Eliquis As per patient baseline BP is on the low side at home and he experiences dizziness when he takes furosemide and Aldactone (he takes is 3x/wk) BP low at presentation. Get ortho vitals. Cards on board, meds being optimized c/w Metoprolol. Entresto, Aldactone and lasix on hold. Plan to reintroduce entresto at half home dose once BP stabilizes Left rib fractures: fifth-7, acute, nondisplaced, secondary to fall. On RA. Encouraged IS. C/w pain Mx. Right frontal aspect head hematoma secondary to fall CT head no acute intracranial bleed neurologically intact, monitor. 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 Paroxysmal atrial fibrillation: Continue w/ metoprolol, eliquis and amiodarone. CKD stage III- Stable Hypothyroidism- Continue levothyroxine DVT prophylaxis: eliquis Full CODE STATUS Admission and Anticipated Discharge Date Admission Date: April 14, 2025 Subjective Patient seen and examined at bedside. Patient reports bilateral anterior chest pain [left side more] when he takes deep breath. Patient encouraged to use incentive spirometer. Pt reports he didnot quite sleep good last night. Pt denies F/C/CP/ST/acute changes in bowel or bladder habits. Pt denies N/V. Physical Exam Physical Exam: General- oriented x 3, not in distress, speaks in sentences with no effort or accessory muscle use Head- positive small hematoma/contusion on the right frontal aspect, otherwise no other obvious signs of injuries Eyes- PERRL, EOMI, anicteric ENT- positive moist oral mucosa, oropharynx clear Neck- supple, no JVD, no adenopathy, no thyromegaly; carotids +2/2, no bruits appreciated Lungs- clear to auscultation bilaterally, no rales/wheezes Heart- normal rate, regular rhythm; no murmur, no gallop, no rub appreciated Abdomen- normal bowel sounds, nondistended, soft, nontender, no masses or hepatosplenomegaly Extremities- left arm: Positive faint hematoma on the bicep area no pretibial edema, no calf tenderness; peripheral pulses intact Neuro- alert, oriented x 3; CN 2-12 grossly intact; motor 5/5 bilaterally;sensation 100% on all extremities; no other gross focal neurologic deficits Skin- warm & dry Left fore head small bruise. Left ant chest tender on palpation. Results & Data Results & Data Vital Signs (Past 12 Hours) Vital Signs Temp Pulse Pulse Resp BP BP Pulse Ox 04/15/25 08:45 80 106/65 04/15/25 08:44 72 144/88 H 04/15/25 08:43 70 132/75 04/15/25 08:07 36.4 C L 04/15/25 06:00 60 18 99/63 L 95 04/15/25 05:00 60 14 95/58 L 94 04/15/25 04:23 60 16 108/61 94 04/15/25 04:00 60 15 99/63 L 93 04/15/25 03:00 60 18 95/62 L 95 04/15/25 02:00 60 17 90/61 L 96 04/15/25 01:00 60 14 94/65 L 94 04/15/25 00:00 60 15 95/63 L 94 04/15/25 00:00 60 O2 Del Method 04/15/25 08:45 04/15/25 08:44 04/15/25 08:43 04/15/25 08:07 04/15/25 06:00 Room Air 04/15/25 05:00 Room Air 04/15/25 04:23 Room Air 04/15/25 04:00 Room Air 04/15/25 03:00 Room Air 04/15/25 02:00 Room Air 04/15/25 01:00 Room Air 04/15/25 00:00 Room Air 04/15/25 00:00
[2025-04-15] MEDS ORDERED: POLYETHYLENE (MIRALAX) 17 GM PACK PO PRN (19:43)
[2025-04-15] MEDS: DOCUSATE SODIUM/SENNA 50/8.6MG TAB PO SCH (20:14)
[2025-04-15] MEDS: POLYETHYLENE (MIRALAX) 17 GM PACK PO STA (20:45)
[2025-04-16] MEDS: CYCLOBENZAPRINE HCL 5 MG TAB PO PRN (04:03)
[2025-04-16 05:25] LABS: Hematocrit (blood only) 36.2 % (42.0-52.0); Hemoglobin 11.9 g/dL (14.0-18.0); Mean Corpuscular Hemoglobin 32.2 pg (25.0-34.0); Mean Corpuscular Volume 98.1 fL (80.0-100.0); Platelet Count 128 K/uL (130-400); RDW Standard Deviation 45.5 fL (36.4-46.3); Red Blood Count 3.69 M/uL (4.70-6.10); White Blood Count 4.19 K/ul (4.8-10.8)
[2025-04-16 05:42] LABS: Anion Gap 6.0 (3-11); Blood Urea Nitrogen 30.0 mg/dl (6-23); Calcium 8.7 mg/dl (8.6-10.3); Carbon Dioxide 27.0 mmol/L (21-32); Chloride 105.0 mmol/L (98-107); Creatinine Clr Calc Pharmacy 62.5 ml/min; Glucose 97.0 mg/dl (70-99(Fasting)); Magnesium 2.1 mg/dl (1.7-2.4); Potassium 3.9 mmol/L (3.5-5.1); Sodium 138.0 mmol/L (136-145)
[2025-04-16] MEDS: VALSARTAN/SACUBITRIL 26/24MG TAB PO SCH (08:17)
--- NOTE | 2025-04-16 11:06 | Cardiology Progress Note ---
Date of Service April 16, 2025 Assessment & Plan (1) Dizziness: (2) Fall: (3) Chest wall contusion: (4) Multiple fractures of ribs: (5) NICM (nonischemic cardiomyopathy): (6) AICD (automatic cardioverter/defibrillator) present: Plan: Remote device interrogation was sent from the emergency department 04/14/25 and I reviewed the findings with the [facility] medical customer service representative. Patient is chronically ventricular paced 99% of the time. No arrhythmia episodes occurred at the time of event. Normal device function noted. Generator longevity around 3 years. Patient did have an EKG on arrival to the emergency department that is available for review in [employer] web revealing SR with ventricular paced QRS complexes. Summary of ttecho performed as an outpatient on 07/29/24: The qualitative LV ejection fraction is 40-44% (mildly reduced). The LV wall thickness is mildly increased (concentric). The septal motion is abnormal consistent with left bundle branch block. The remaining left ventricular wall segments are mildly hypokinetic. Mild tricuspid regurgitation is present. There is no evidence of pulmonary hypertension. Compared to last available study changes are noted as follows: Left ventricular systolic function has improved. CT Chest / abd/ pelvis performed as part of trauma work up today revealed no pericardial effusion, no pleural effusion. There are acute nondisplaced fractures of the left anterior 5th through 7th ribs. Past progress notes described with limitations with regards to titrating congestive heart failure medication due to orthostatic hypotension. The patient states that he takes his furosemide and spironolactone 3 days/week and typically feels dizzy when he takes these. 04/16/2025: Plan: * Topical lidocaine patch for pain control * Continue metoprolol, amiodarone, atorvastatin * Hemoglobin stable. Eliquis reinitiated. * Orthostatic vital signs as obtained on 04/15/2025 at or negative for orthostasis. * Reintroduce Entresto first 24/26 mg tab 1/2 BID. * Furosemide and spironolactone which the patient takes 3 days/week) remain on hold. * Non emergent in person device interrogation recommended during this stay or as an outpatient as generator longevity lower than anticipated for a device place a year ago. * Patient stable from cardiac perspective for transfer out of ICU to PCU or telemetry depending on trauma considerations. Donya Schulte DO Admission and Anticipated Discharge Date Admission Date: April 14, 2025 Subjective Patient seen in cardiology follow-up of chest discomfort, rib fractures, orthostatic hypotension, fall. Patient states his chest wall pain is a little bit worse today. Although his most recent blood pressure reading was up to 120/77, earlier this morning systolic blood pressure still in the 90s. Telemetry reveals sinus rhythm in the 60s, ventricular paced rhythm. No significant arrhythmias. Physical Exam Physical Exam: Temp Pulse Resp BP Pulse Ox O2 Del Method O2 Flow Rate 36.6 C 80 19 120/77 94 Room Air 0 04/16/25 08:00 04/16/25 08:00 04/16/25 08:00 04/16/25 08:02 04/16/25 08:00 04/16/25 08:00 04/14/25 13:00 Constitutional: + thin; no acute distress Eyes: PERRL, conjunctivae normal, anicteric sclerae Respiratory: normal respiratory effort, lungs clear to auscultation Cardiovascular: RRR, no murmur, no edema Vessels: no JVD Gastrointestinal (Abdomen): normal bowel sounds, soft, nontender, no hepatosplenomegaly Neurologic: PERRL, EOMI, accommodation nl, no face palsy, no dysarthria Results & Data Vital Signs (Past 12 Hours) Vital Signs Temp Pulse Resp BP Pulse Ox O2 Del Method 04/16/25 08:02 120/77 04/16/25 08:02 120/77 04/16/25 08:02 120/77 04/16/25 08:02 120/77 04/16/25 08:02 120/77 04/16/25 08:00 80 19 94 Room Air 04/16/25 08:00 36.6 C 04/16/25 08:00 Room Air 04/16/25 07:55 136/79 04/16/25 07:55 136/79 04/16/25 07:55 136/79 04/16/25 07:55 136/79 04/16/25 07:55 136/79 04/16/25 07:42 21 04/16/25 07:30 Room Air 04/16/25 07:12 11304/16/25 07:12 11304/16/25 07:12 11304/16/25 07:12 11304/16/25 07:12 11304/16/25 07:12 79 18 94 04/16/25 07:00 69 21 94 Room Air 04/16/25 02:00 61 14 94 Room Air 04/16/25 02:00 113/69 04/16/25 00:00 116/73 04/16/25 00:00 63 16 95 Room Air 04/16/25 00:00 65 04/15/25 23:10 62 21 117/66 92 Room Air Laboratory Results CBC 04/16/25 Range/Units 05:13 WBC 4.19 L (4.8-10.8) K/ul RBC 3.69 L (4.70-6.10) M/uL Hgb 11.9 L (14.0-18.0) g/dL Hct 36.2 L (42.0-52.0) % Plt Count 128 L (130-400) K/uL Comprehensive Metabolic Panel 04/16/25 Range/Units 05:13 Sodium 138 (136-145) mmol/L Potassium 3.9 (3.5-5.1) mmol/L Chloride 105 (98-107) mmol/L Carbon Dioxide 27 (21-32) mmol/L BUN 30 H (6-23) mg/dl Creatinine 1.10 (0.6-1.4) mg/dl Glucose 97 (70-99(Fasting)) mg/dl Calcium 8.7 (8.6-10.3) mg/dl Intake and Output 04/15/25 04/16/25 04/16/25 22:59 06:59 14:59 Output Total 150 / 575 275 / 575 Balance -150 / -175 -275 / -175 Output: Urine 150 / 575 275 / 575 # Bowel Movements 0 / 0 Other: Weight 85.1 kg Weight Measurement Method Built in [facility] Patient Weight 04/17/25 06:59 Weight 85.1 kg PG Care Time/CCT Total # of Minutes Spent Total Time Spent with Patient: Total time spent is greater than 50% in coordination of care (as documented) at patient's floor/unit and/or counseling patient: Coding Level of Care Code 35581 SUB INP/OBS CARE 3/50MIN Diagnoses Dizziness R42 Fall W19.XXXA Chest wall contusion S20.219A Multiple fractures of ribs S22.49XA NICM (nonischemic cardiomyopathy) I42.8 AICD (automatic cardioverter/defibrillator) present Z95.810
--- NOTE | 2025-04-16 11:20 | Hospitalist Progress Note ---
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 Fall, presyncope: Likely secondary to orthostasis, rule out arrhythmia In the setting of nonischemic cardiomyopathy, status post AICD placement, Paroxysmal atrial fibrillation on Eliquis As per patient baseline BP is on the low side at home and he experiences dizziness when he takes furosemide and Aldactone (he takes is 3x/wk) BP low at presentation. Get ortho vitals. Cards on board, meds being optimized c/w Metoprolol and half of home dose Entresto. Aldactone and lasix on hold. c/w tele monitoring. Left rib fractures: fifth-7, acute, nondisplaced, secondary to fall. On RA. Encouraged IS. C/w pain Mx. Right frontal aspect head hematoma secondary to fall CT head no acute intracranial bleed neurologically intact, monitor. 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 Paroxysmal atrial fibrillation: Continue w/ metoprolol, eliquis and amiodarone. CKD stage III- Stable Hypothyroidism- Continue levothyroxine DVT prophylaxis: eliquis Full CODE STATUS Admission and Anticipated Discharge Date Admission Date: April 14, 2025 Subjective Patient seen and examined at bedside. Patient reports bilateral anterior chest pain [left side more] when he takes deep breath. Patient encouraged to use incentive spirometer. Pt denies F/C/CP/ST/acute changes in bowel or bladder habits. Pt denies N/V. Physical Exam Physical Exam: General- oriented x 3, not in distress, speaks in sentences with no effort or accessory muscle use Head- positive small hematoma/contusion on the right frontal aspect, otherwise no other obvious signs of injuries Eyes- PERRL, EOMI, anicteric ENT- positive moist oral mucosa, oropharynx clear Neck- supple, no JVD, no adenopathy, no thyromegaly; carotids +2/2, no bruits appreciated Lungs- clear to auscultation bilaterally, no rales/wheezes Heart- normal rate, regular rhythm; no murmur, no gallop, no rub appreciated Abdomen- normal bowel sounds, nondistended, soft, nontender, no masses or hepatosplenomegaly Extremities- left arm: Positive faint hematoma on the bicep area no pretibial edema, no calf tenderness; peripheral pulses intact Neuro- alert, oriented x 3; CN 2-12 grossly intact; motor 5/5 bilaterally;sensation 100% on all extremities; no other gross focal neurologic deficits Skin- warm & dry Left fore head small bruise. Left ant chest tender on palpation. Results & Data Results & Data Vital Signs (Past 12 Hours) Vital Signs Temp Pulse Resp BP Pulse Ox O2 Del Method 04/16/25 08:02 120/77 04/16/25 08:02 120/77 04/16/25 08:02 120/77 04/16/25 08:02 120/77 04/16/25 08:02 120/77 04/16/25 08:00 80 19 94 Room Air 04/16/25 08:00 36.6 C 04/16/25 08:00 Room Air 04/16/25 07:55 136/79 04/16/25 07:55 136/79 04/16/25 07:55 136/79 04/16/25 07:55 136/79 04/16/25 07:55 136/79 04/16/25 07:42 21 04/16/25 07:30 Room Air 04/16/25 07:12 04/16/25 07:12 04/16/25 07:12 04/16/25 07:12 04/16/25 07:12 04/16/25 07:12 79 18 94 04/16/25 07:00 69 21 94 Room Air 04/16/25 02:00 61 14 94 Room Air 04/16/25 02:00 113/69 04/16/25 00:00 116/73 04/16/25 00:00 63 16 95 Room Air 04/16/25 00:00 65
--- NOTE | 2025-04-17 02:04 | Communication Note ---
Date of Service: April 17, 2025 Code purple code around 2 AM. Patient fell from standing position in his room resulting in posterior head trauma. Bleeding posterior scalp wound noted. Patient complaining of headache. Denies chest pain, SOB, LOC. Code purple called. SBP 150s at time of event. AP Head trauma Eliquis Rx Stat CT head Hold Eliquis for now Consult ER medicine for possible wound repair.
[2025-04-17 02:32] LABS: Hematocrit (blood only) 37.1 % (42.0-52.0); Hemoglobin 12.2 g/dL (14.0-18.0); Immature Granulocytes # (auto) 0.03 K/uL (0.01-0.20); Immature Granulocytes % (auto) 0.5 %; Mean Corpuscular Hemoglobin 32.3 pg (25.0-34.0); Mean Corpuscular Volume 98.1 fL (80.0-100.0); Platelet Count 150 K/uL (130-400); RDW Standard Deviation 45.7 fL (36.4-46.3); Red Blood Count 3.78 M/uL (4.70-6.10); White Blood Count 5.58 K/ul (4.8-10.8)
[2025-04-17 02:52] LABS: Anion Gap 9.0 (3-11); Blood Urea Nitrogen 35.0 mg/dl (6-23); Calcium 8.8 mg/dl (8.6-10.3); Carbon Dioxide 26.0 mmol/L (21-32); Chloride 104.0 mmol/L (98-107); Creatinine Clr Calc Pharmacy 49.5 ml/min; Glucose 110.0 mg/dl (70-99(Fasting)); Potassium 4.3 mmol/L (3.5-5.1); Sodium 139.0 mmol/L (136-145)
--- NOTE | 2025-04-17 03:04 | CT Scan Report ---
EXAM: CT head/brain wo con CLINICAL HISTORY: trauma, eliquis, critical TECHNIQUE: Axial non-contrast CT scan of the brain was performed from the skull base to the high parietal region in axial, sagittal and coronal reconstructions. One of the following dose reduction techniques were utilized for this exam: Automated exposure control, adjustment of the mA and/or kV according to patient size, use of iterative reconstruction. CTDI: , DLP: COMPARISON: Prior CT head without contrast, dated 04/14/2025. FINDINGS: Brain Parenchyma: Mild age-related white matter changes; unchanged. Otherwise, normal attenuation of the cerebral hemispheres, cerebellum, and brainstem. No evidence of acute infarct, hemorrhage, or mass effect. Ventricular System: Age-related involutional brain changes with dilatation of the supratentorial ventricular system and widening of the cortical sulci. Unchanged. No evidence of hydrocephalus Subarachnoid Spaces: Widening of the cortical sulci bilaterally and: Age-appropriate. No evidence of subarachnoid hemorrhage or extra-axial fluid collections. Cerebellum and Brainstem: No masses, lesions, or areas of abnormal density. Orbits: Normal appearance of the globes, optic nerves, and extraocular muscles. No evidence of orbital masses or abnormal density. Sinuses: Clear paranasal sinuses. No evidence of sinusitis or mucosal thickening. Mastoid Air Cells: Clear mastoid air cells. No evidence of mastoiditis. Skull: Normal skull morphology. There is a small, new scalp hematoma involving the left parietal?occipital region, paramidline in location, measuring approximately 5 mm in maximal thickness. IMPRESSION: 1. No evidence of acute skull fracture or acute intracranial hemorrhage. 2. Small new left parietal?occipital paramidline scalp hematoma, measuring approximately 5 mm in thickness. 3. Chronic microvascular ischemic and senile brain atrophy changes. Unchanged. 4. Otherwise, no significant interval changes compared to prior study, dated on 04/14/2025. Electronically signed by Wilian Palacios 04-17-2025 03:04 AM
--- NOTE | 2025-04-17 04:02 | Emergency Department Note ---
ED Visit Note I was consulted by [facility] hospitalist team Dr. Dobbs. Consultation was made for possible scalp laceration requiring repair. The reasoning that the patient fell and struck his head. He is on anticoagulation with apixaban. Patient had a CT head that did not reveal any intracranial hemorrhage. Patient does have a left posterior scalp hematoma. The skin has some abrasions in this area with minimal bleeding. Bleeding is controlled. Thorough irrigation and cleaning was provided by ICU nurse. There is no large laceration or defect to repair at this time. This was discussed with the hospitalist team as well as the ICU nurse. The patient can have bacitracin applied to the wound along with a pressure dressing. Would recommend this over the next 72 hours. Close monitoring for worsening bleeding as well as infectious signs and symptoms including worsening swelling, erythema, warmth or fever. Would consider repeat CT head if the patient has a change in mental status or decompensation. Instructions: Please make sure that you apply a daily pressure dressing. Change the dressing if it becomes wet or soiled. Please look out for signs of infection such as expanding redness or foul-smelling drainage. You may apply bacitracin, or over the counter triple antibiotic ointment, applied to your wounds two to three times daily with dressing changes. You may apply gentle soap and water but do not submerge the area. Call your PCP or return to the ED for fevers, worsening redness or traveling streaks, significant drainage or swelling, pain or anything that you find alarming. .
[2025-04-17 08:48] LABS: Hematocrit (blood only) 35.2 % (42.0-52.0); Hemoglobin 11.3 g/dL (14.0-18.0)
--- NOTE | 2025-04-17 13:39 | Cardiology Progress Note ---
Date of Service April 17, 2025 Assessment & Plan (1) Dizziness: Plan: 79-year-old male with complex history as previously outlined which includes nonischemic cardiomyopathy status post BiV pacer defibrillator with improved LV systolic function. Most recent generator exchange April 2024 Patient presents this admission after fall with rib fractures, mechanical injuries possibly orthostasis mediated. No arrhythmias defined on device interrogation or since admission. Once again episode fall possible syncope on arising from bed last night early a.m. Telemetry without. Orthostatic on exam once again. This morning Physical examination without signs of congestive heart failure Impression and plan 1. Orthostasis with falls: Hold Entresto. Will reduce metoprolol succinate to 12.5 mg every afternoon 2. Paroxysmal atrial fibrillation/ventricular arrhythmias continue amiodarone 3. Status post BiV pacer defibrillator with no arrhythmia 4. Nonischemic cardiomyopathy with reduced ejection fraction. Currently compensate without signs of heart failure continue to hold furosemide and spironolactone (2) Fall: (3) Chest wall contusion: (4) Multiple fractures of ribs: (5) NICM (nonischemic cardiomyopathy): (6) AICD (automatic cardioverter/defibrillator) present: Plan: Remote device interrogation was sent from the emergency department 04/14/25 and I reviewed the findings with the [facility] director medical. Patient is chronically ventricular paced 99% of the time. No arrhythmia episodes occurred at the time of event. Normal device function noted. Generator longevity around 3 years. Patient did have an EKG on arrival to the emergency department that is available for review in MUSE web revealing SR with ventricular paced QRS complexes. Summary of ttecho performed as an outpatient on 07/29/24: The qualitative LV ejection fraction is 40-44% (mildly reduced). The LV wall thickness is mildly increased (concentric). The septal motion is abnormal consistent with left bundle branch block. The remaining left ventricular wall segments are mildly hypokinetic. Mild tricuspid regurgitation is present. There is no evidence of pulmonary hypertension. Compared to last available study changes are noted as follows: Left ventricular systolic function has improved. CT Chest / abd/ pelvis performed as part of trauma work up today revealed no pericardial effusion, no pleural effusion. There are acute nondisplaced fractures of the left anterior 5th through 7th ribs. Past progress notes described with limitations with regards to titrating congestive heart failure medication due to orthostatic hypotension. The patient states that he takes his furosemide and spironolactone 3 days/week and typically feels dizzy when he takes these. 04/16/2025: Plan: * Topical lidocaine patch for pain control * Continue metoprolol, amiodarone, atorvastatin * Hemoglobin stable. Eliquis reinitiated. * Orthostatic vital signs as obtained on 04/15/2025 at or negative for orthostasis. * Reintroduce Entresto first 24/26 mg tab 1/2 BID. * Furosemide and spironolactone which the patient takes 3 days/week) remain on hold. * Non emergent in person device interrogation recommended during this stay or as an outpatient as generator longevity lower than anticipated for a device place a year ago. * Patient stable from cardiac perspective for transfer out of ICU to PCU or telemetry depending on trauma considerations. Donya Schulte DO Admission and Anticipated Discharge Date Admission Date: April 14, 2025 Subjective Patient was seen and personally examined. Patient suffered a fall once again this morning ,early a.m. hours on rising from bed. Patient without good recollection of event. Suffered contusion to posterior scalp. No arrhythmias on telemetry Orthostatic on examination once again this morning Review of Systems Review of Systems: All systems reviewed & are unremarkable except as noted in Subjective Physical Exam Constitutional: no acute distress Mild confusion regarding events of past evening Eyes: PERRL, conjunctivae normal, anicteric sclerae Neck: trachea midline, no thyromegaly Respiratory: normal respiratory effort, lungs clear to auscultation Cardiovascular: Rate/Rhythm: regular rate and regular rhythm Vessels: no JVD Extremities: no edema Chest (Breasts): Chest: + pacemaker Gastrointestinal (Abdomen): normal bowel sounds, soft, nontender, no hepatosplenomegaly Musculoskeletal: Head/Neck/Chest: + scalp tenderness (Healing contusion right temporal area fresh ecchymosis occipital) Results & Data Vital Signs (Past 12 Hours) Vital Signs Temp Pulse Resp BP Pulse Ox O2 Del Method 04/17/25 11:00 70 25 H 04/17/25 10:00 70 13 04/17/25 09:01 107/71 04/17/25 09:00 87 28 H 04/17/25 08:54 73 23 04/17/25 08:51 74 18 04/17/25 08:00 Room Air 04/17/25 08:00 71 23 12/15/25 08:00 36.6 C 04/17/25 07:28 114/67 04/17/25 07:27 74 22 04/17/25 07:00 62 14 04/17/25 06:49 61 04/17/25 06:00 72 17 04/17/25 05:00 71 19 97 04/17/25 04:00 70 17 97 04/17/25 03:57 64 17 04/17/25 03:52 97/69 L 04/17/25 03:51 36.4 C L 71 15 97 Room Air 04/17/25 02:24 69 14 94 Room Air 04/17/25 02:19 117/67 04/17/25 02:18 71 14 95 04/17/25 01:58 16 151/86 H 04/17/25 01:51 23 Laboratory Results Laboratory Results - last 24 hr 04/17/25 04/17/25 04/17/25 02:15 02:21 08:30 WBC 5.58 RBC 3.78 L Hgb 12.2 L 11.3 L Hct 37.1 L 35.2 L MCV 98.1 MCH 32.3 MCHC 32.9 RDW Std Deviation 45.7 RDW Coeff of Huong 12.7 Plt Count 150 MPV 10.4 Immature Gran % (Auto) 0.5 Neut % (Auto) 58.0 Lymph % (Auto) 27.8 Hudson % (Auto) 11.3 Eos % (Auto) 2.2 Baso % (Auto) 0.2 Neut # (Auto) 3.24 Lymph # (Auto) 1.55 Hudson # (Auto) 0.63 H Eos # (Auto) 0.12 Baso # (Auto) 0.01 Immature Gran # (Auto) 0.03 Sodium 139 Potassium 4.3 Chloride 104 Carbon Dioxide 26 Anion Gap 9 BUN 35 H Creatinine 1.39 Est Cr Clr Drug Dosing 49.5 eGFR 51.89 BUN/Creatinine Ratio 25.2 H Glucose 110 H POC Glucose 102 H Lactate 1.4 Calcium 8.8 Blood Type O Positive Antibody Screen NEGATIVE PG Care Time/CCT Total # of Minutes Spent Total Time Spent with Patient: Total time spent is greater than 50% in coordination of care (as documented) at patient's floor/unit and/or counseling patient: Coding Level of Care Code 42334 SUB INP/OBS CARE 3/50MIN Diagnoses Dizziness R42 Fall W19.XXXA Chest wall contusion S20.219A Multiple fractures of ribs S22.49XA NICM (nonischemic cardiomyopathy) I42.8 AICD (automatic cardioverter/defibrillator) present Z95.810
--- NOTE | 2025-04-17 15:50 | Hospitalist Progress Note ---
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 Fall, presyncope: Fall [employer] and fall inpatient overnight of 04/16-04/17 Likely secondary to orthostasis, rule out arrhythmia In the setting of nonischemic cardiomyopathy, status post AICD placement, Paroxysmal atrial fibrillation on Eliquis As per patient baseline BP is on the low side at home and he experiences dizziness when he takes furosemide and Aldactone (he takes is 3x/wk) BP low at presentation. +ve ortho vitals. Cards on board, meds being optimized d/w cardio - c/w Metoprolol half dose, hold Entresto. Aldactone and lasix on hold. resume eliquis from evening. monitor HnH closely, monitor post scalp hematoma. if w/ mentation changes hold eliquis and get stat ct head. c/w tele monitoring. Left rib fractures: fifth-7, acute, nondisplaced, secondary to fall. On RA. Encouraged IS. C/w pain Mx. Right frontal aspect head hematoma secondary to fall CT head no acute intracranial bleed neurologically intact, monitor. 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 Paroxysmal atrial fibrillation: Continue w/ metoprolol, eliquis and amiodarone. CKD stage III- Stable Hypothyroidism- Continue levothyroxine DVT prophylaxis: eliquis Full CODE STATUS pt/ot, cm to assit w/ dc plan. Admission and Anticipated Discharge Date Admission Date: April 14, 2025 Subjective Patient seen and examined at bedside. Pt was lying in bed, on RA, NAD. Pt had fall last night, denies sob, Loc. Has small small hematoma/bruise p osterior scalp. eliquis was held, ER physician evaled, see note. CT head w/ no intracranial bleed. Pt denies F/C/CP/ST/acute changes in bowel or bladder habits. Pt denies N/V. Physical Exam Physical Exam: General- oriented x 3, not in distress, speaks in sentences with no effort or accessory muscle use Head- positive small hematoma/contusion on the right frontal aspect - almost resolved except for discoloration, Another small hematoma/contusion posterior scalp. otherwise no other obvious signs of injuries Eyes- PERRL, EOMI, anicteric ENT- positive moist oral mucosa, oropharynx clear Neck- supple, no JVD, no adenopathy, no thyromegaly; carotids +2/2, no bruits appreciated Lungs- clear to auscultation bilaterally, no rales/wheezes Heart- normal rate, regular rhythm; no murmur, no gallop, no rub appreciated Abdomen- normal bowel sounds, nondistended, soft, nontender, no masses or hepatosplenomegaly Extremities- left arm: Positive faint hematoma on the bicep area no pretibial edema, no calf tenderness; peripheral pulses intact Neuro- alert, oriented x 3; CN 2-12 grossly intact; motor 5/5 bilaterally;sensation 100% on all extremities; no other gross focal neurologic deficits Skin- warm & dry Left fore head small bruise. Left ant chest tender on palpation. Results & Data Results & Data Vital Signs (Past 12 Hours) Vital Signs Temp Pulse Resp BP Pulse Ox O2 Del Method 04/17/25 11:00 70 25 H 04/17/25 10:00 70 13 04/17/25 09:01 107/71 04/17/25 09:00 87 28 H 04/17/25 08:54 73 23 04/17/25 08:51 74 18 04/17/25 08:00 Room Air 04/17/25 08:00 71 23 04/17/25 08:00 36.6 C 04/17/25 07:28 114/67 04/17/25 07:27 74 22 04/17/25 07:00 62 14 04/17/25 06:49 61 04/17/25 06:00 72 17 04/17/25 05:00 71 19 97 04/17/25 04:00 70 17 97 04/17/25 03:57 64 17 04/17/25 03:52 97/69 L 04/17/25 03:51 36.4 C L 71 15 97 Room Air
[2025-04-17] MEDS: METOPROLOL SUCC 25MG EXT REL TAB PO SCH (19:58)
[2025-04-18 04:23] LABS: Hematocrit (blood only) 31.7 % (42.0-52.0); Hemoglobin 10.4 g/dL (14.0-18.0); Mean Corpuscular Hemoglobin 32.2 pg (25.0-34.0); Mean Corpuscular Volume 98.1 fL (80.0-100.0); Platelet Count 119 K/uL (130-400); RDW Standard Deviation 46.0 fL (36.4-46.3); Red Blood Count 3.23 M/uL (4.70-6.10); White Blood Count 4.38 K/ul (4.8-10.8)
[2025-04-18 04:39] LABS: Anion Gap 7.0 (3-11); Blood Urea Nitrogen 34.0 mg/dl (6-23); Calcium 8.2 mg/dl (8.6-10.3); Carbon Dioxide 25.0 mmol/L (21-32); Chloride 106.0 mmol/L (98-107); Creatinine Clr Calc Pharmacy 49.1 ml/min; Glucose 101.0 mg/dl (70-99(Fasting)); Magnesium 2.0 mg/dl (1.7-2.4); Potassium 4.2 mmol/L (3.5-5.1); Sodium 138.0 mmol/L (136-145)
--- NOTE | 2025-04-18 10:42 | Hospitalist Progress Note ---
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 Fall, presyncope: Fall [employer] and fall inpatient overnight of 04/16-04/17 Likely secondary to orthostasis, In the setting of nonischemic cardiomyopathy, status post AICD placement, Par oxysmal atrial fibrillation on Eliquis As per patient baseline BP is on the low side at home and he experiences dizziness when he takes furosemide and Aldactone (he takes is 3x/wk) BP low at presentation. +ve ortho vitals. Cards on board, meds being optimized- c/w Metoprolol half dose, hold Entresto. Aldactone and lasix on hold. Eliquis resumed. monitor HnH closely, monitor post scalp hematoma. if w/ mentation changes hold eliquis and get stat ct head. c/w tele monitoring. Acute urinary retention status post Garrison placementfound to have urinary retention on 04/18; Garrison placed. Will continue Garrison for 1 week and do trial of void Left rib fractures: fifth-7, acute, nondisplaced, secondary to fall. On RA. Encouraged IS. C/w pain Mx. Right frontal aspect head hematoma secondary to fall CT head no acute intracranial bleed neurologically intact, monitor. 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 Paroxysmal atrial fibrillation: Continue w/ metoprolol, eliquis and amiodarone. CKD stage III- Stable Hypothyroidism- Continue levothyroxine DVT prophylaxis: eliquis Full CODE STATUS Time spent evaluating patient, direct bedside care, chart review, placing orders, interpretation of diagnostic studies, discussion with consultants, patient, and family members, as well as other required patient management activities is 50 minutes Please note the above document was generated using voice recognition software. It may contain grammatical, syntax or spelling errors. Any formal questions or concerns about the content, text or information contained within the body of this dictation should be directly addressed to the provider for clarification Admission and Anticipated Discharge Date Admission Date: April 14, 2025 Subjective Patient seen and examined at bedside. He is lying comfortably in the bed; not in distress. He was found to have urinary retention for which Garrison catheter was placed Review of Systems Review of Systems: All systems reviewed & are unremarkable except as noted in Subjective Physical Exam Physical Exam: General- oriented x 3, not in distress, speaks in sentences with no effort or accessory muscle use Head- positive small hematoma/contusion on the right frontal aspect - almost resolved except for discoloration, Another small hematoma/contusion posterior scalp. otherwise no other obvious signs of injuries Lungs- clear to auscultation bilaterally, no rales/wheezes Heart- normal rate, regular rhythm; no murmur, no gallop, no rub appreciated Abdomen- normal bowel sounds, nondistended, soft, nontender, no masses or hepatosplenomegaly Extremities- no pretibial edema, no calf tenderness; peripheral pulses intact Neuro- alert, oriented x 3; CN 2-12 grossly intact; motor 5/5 bilaterally;sensation 100% on all extremities; no other gross focal neurologic deficits Results & Data Results & Data Vital Signs (Past 12 Hours) Vital Signs Temp Pulse Pulse Resp BP BP Pulse Ox 04/18/25 08:18 36.5 C 73 20 92/55 L 94 04/18/25 08:00 64 04/18/25 04:06 37.1 C 16 95 04/18/25 04:06 108/66 04/18/25 00:00 76 O2 Del Method 04/18/25 08:18 Room Air 04/18/25 08:00 04/18/25 04:06 04/18/25 04:06 04/18/25 00:00
--- NOTE | 2025-04-18 10:59 | Cardiology Progress Note ---
Date of Service April 18, 2025 Assessment & Plan (1) Dizziness: Plan: 79-year-old male with complex history as previously outlined which includes nonischemic cardiomyopathy status post BiV pacer defibrillator with improved LV systolic function. Most recent generator exchange April 2024 Patient presents this admission after fall with rib fractures, mechanical injuries possibly orthostasis mediated. No arrhythmias defined on device interrogation or since admission. Once again episode fall possible syncope on arising from bed last night early a.m. Telemetry without. Orthostatic on exam once again. This morning Physical examination without signs of congestive heart failure Impression and plan 1. Orthostasis with falls: Hold Entresto. Will reduce metoprolol succinate to 12.5 mg every afternoon 2. Paroxysmal atrial fibrillation/ventricular arrhythmias continue amiodarone 3. Status post BiV pacer defibrillator with no arrhythmia 4. Nonischemic cardiomyopathy with reduced ejection fraction. Currently compensate without signs of heart failure continue to hold furosemide and spironolactone 04/18/2025 Continued hypotension and mild orthostasis though less symptomatic no further falls or injury. Continue to hold cardiac medications as previously. No signs or symptoms of congestive heart failure at this time Add midodrine 2.5 mg 3 times daily PT and OT begin to mobilize suspect patient will require rehab as part of management Caution with any new medications added for urinary retention (2) Fall: (3) Chest wall contusion: (4) Multiple fractures of ribs: (5) NICM (nonischemic cardiomyopathy): (6) AICD (automatic cardioverter/defibrillator) present: Plan: Remote device interrogation was sent from the emergency department 04/14/25 and I reviewed the findings with the [facility] medical or surgical instrument maker. Patient is chronically ventricular paced 99% of the time. No arrhythmia episodes occurred at the time of event. Normal device function noted. Generator longevity around 3 years. Patient did have an EKG on arrival to the emergency department that is available for review in MUSE web revealing SR with ventricular paced QRS complexes. Summary of ttecho performed as an outpatient on 07/29/24: The qualitative LV ejection fraction is 40-44% (mildly reduced). The LV wall thickness is mildly increased (concentric). The septal motion is abnormal consistent with left bundle branch block. The remaining left ventricular wall segments are mildly hypokinetic. Mild tricuspid regurgitation is present. There is no evidence of pulmonary hypertension. Compared to last available study changes are noted as follows: Left ventricular systolic function has improved. CT Chest / abd/ pelvis performed as part of trauma work up today revealed no pericardial effusion, no pleural effusion. There are acute nondisplaced fractures of the left anterior 5th through 7th ribs. Past progress notes described with limitations with regards to titrating congestive heart failure medication due to orthostatic hypotension. The patient states that he takes his furosemide and spironolactone 3 days/week and typically feels dizzy when he takes these. 04/16/2025: Plan: * Topical lidocaine patch for pain control * Continue metoprolol, amiodarone, atorvastatin * Hemoglobin stable. Eliquis reinitiated. * Orthostatic vital signs as obtained on 04/15/2025 at or negative for orthostasis. * Reintroduce Entresto first 24/26 mg tab 1/2 BID. * Furosemide and spironolactone which the patient takes 3 days/week) remain on hold. * Non emergent in person device interrogation recommended during this stay or as an outpatient as generator longevity lower than anticipated for a device place a year ago. * Patient stable from cardiac perspective for transfer out of ICU to PCU or telemetry depending on trauma considerations. Donya Schulte DO Admission and Anticipated Discharge Date Admission Date: April 14, 2025 Subjective Patient seen and examined, chart, medications, telemetry reviewed. "About the same." No acute dizziness or lightheadedness no further falls or syncope no chest pains or discomfort. Garrison catheter inserted for bladder distention, urinary retention. Blood pressure still trending on the lower side with mild orthostasis. Review of Systems Review of Systems: All systems reviewed & are unremarkable except as noted in Subjective Physical Exam Constitutional: no acute distress ENMT: external ear and nose normal, oropharynx normal Respiratory: normal respiratory effort, lungs clear to auscultation Chest (Breasts): Chest: + pacemaker (Pacer defibrillator without irritation) Additional Comments: Chest wall tender left Gastrointestinal (Abdomen): normal bowel sounds, soft, nontender, no hepatosplenomegaly Musculoskeletal: no cyanosis or clubbing, extremities motor strength 5/5 Results & Data Vital Signs (Past 12 Hours) Vital Signs Temp Pulse Pulse Resp BP BP Pulse Ox 04/18/25 08:18 36.5 C 73 20 92/55 L 94 04/18/25 08:00 64 04/18/25 04:06 37.1 C 16 95 04/18/25 04:06 108/66 04/18/25 00:00 76 O2 Del Method 04/18/25 08:18 Room Air 04/18/25 08:00 04/18/25 04:06 04/18/25 04:06 04/18/25 00:00 Laboratory Results Laboratory Results - last 24 hr 04/18/25 04:05 WBC 4.38 L RBC 3.23 L Hgb 10.4 L Hct 31.7 L MCV 98.1 MCH 32.2 MCHC 32.8 RDW Std Deviation 46.0 RDW Coeff of Huong 12.8 Plt Count 119 L MPV 10.4 Sodium 138 Potassium 4.2 Chloride 106 Carbon Dioxide 25 Anion Gap 7 BUN 34 H Creatinine 1.40 Est Cr Clr Drug Dosing 49.1 eGFR 51.45 BUN/Creatinine Ratio 24.3 H Glucose 101 H Calcium 8.2 L Phosphorus 3.3 Magnesium 2.0 PG Care Time/CCT Total # of Minutes Spent Total Time Spent with Patient: Total time spent is greater than 50% in coordination of care (as documented) at patient's floor/unit and/or counseling patient: Coding Level of Care Code 27637 SUB INP/OBS CARE 3/50MIN Diagnoses Dizziness R42 Fall W19.XXXA Chest wall contusion S20.219A Multiple fractures of ribs S22.49XA NICM (nonischemic cardiomyopathy) I42.8 AICD (automatic cardioverter/defibrillator) present Z95.810
[2025-04-18] MEDS: MIDODRINE HCL 2.5 MG TAB PO SCH (11:28)
[2025-04-19 04:35] LABS: Hematocrit (blood only) 31.8 % (42.0-52.0); Hemoglobin 10.5 g/dL (14.0-18.0); Immature Granulocytes # (auto) 0.01 K/uL (0.01-0.20); Immature Granulocytes % (auto) 0.3 %; Mean Corpuscular Hemoglobin 32.9 pg (25.0-34.0); Mean Corpuscular Volume 99.7 fL (80.0-100.0); Platelet Count 129 K/uL (130-400); RDW Standard Deviation 47.2 fL (36.4-46.3); Red Blood Count 3.19 M/uL (4.70-6.10); White Blood Count 3.71 K/ul (4.8-10.8)
[2025-04-19 04:52] LABS: Anion Gap 5.0 (3-11); Blood Urea Nitrogen 36.0 mg/dl (6-23); Calcium 8.5 mg/dl (8.6-10.3); Carbon Dioxide 26.0 mmol/L (21-32); Chloride 107.0 mmol/L (98-107); Creatinine Clr Calc Pharmacy 52.5 ml/min; Glucose 106.0 mg/dl (70-99(Fasting)); Magnesium 2.1 mg/dl (1.7-2.4); Potassium 4.2 mmol/L (3.5-5.1); Sodium 138.0 mmol/L (136-145)
--- NOTE | 2025-04-19 06:22 | Electrocardiogram Report ---
Test Reason : Blood Pressure : */* mmHG Vent. Rate : 68 BPM Atrial Rate : 68 BPM P-R Int : 264 ms QRS Dur : 132 ms QT Int : 422 ms P-R-T Axes : 42 -53 124 degrees QTcB Int : 448 ms Atrial-sensed ventricular-paced rhythm with prolonged AV conduction Abnormal ECG When compared with ECG of 17-Mar-2018 17:16, Vent. rate has decreased by 3 bpm Confirmed by Gama Braga ([id number]) on 04/19/2025 6:21:35 AM Referred By: REFERRED SELF Confirmed By: Gama Braga
--- NOTE | 2025-04-19 11:08 | Hospitalist Progress Note ---
Date of Service April 19, 2025 Assessment & Plan (1) Pre-syncope: (2) Fall: (3) AICD (automatic cardioverter/defibrillator) present: Plan: 79 yo M w/ PMH of CAD, biventricular heart failure with reduced ejection fraction, nonischemic cardiomyopathy, EF 40%, status post AICD, paroxysmal atrial fibrillation on Eliquis, CKD stage III, hypothyroidism, presenting with an episode of dizziness and fall while shoveling snow. 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 +ve ortho vitals. Cards on board, meds being optimized- c/w Metoprolol half dose, hold Entresto. Aldactone and lasix on hold. Eliquis resumed. monitor HnH closely, monitor post scalp hematoma.. c/w tele monitoring. Acute urinary retention status post Garrison placementfound to have urinary retention on 04/18; Garrison placed. Will continue Garrison for 1 week and do trial of void Left rib fractures: fifth-7, acute, nondisplaced, secondary to fall. On RA. Encouraged IS. C/w pain Mx. Right frontal aspect head hematoma secondary to fall CT head no acute intracranial bleed neurologically intact, monitor. 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 Paroxysmal atrial fibrillation: Continue w/ metoprolol, eliquis and amiodarone. CKD stage III- Stable Hypothyroidism- Continue levothyroxine DVT prophylaxis: eliquis Full CODE STATUS Dispo- rehab when bed is available Please note the above document was generated using voice recognition software. It may contain grammatical, syntax or spelling errors. Any formal questions or concerns about the content, text or information contained within the body of this dictation should be directly addressed to the provider for clarification Admission and Anticipated Discharge Date Admission Date: April 14, 2025 Subjective This is patient seen and examined at bedside. He is lying in the bed comfortably; not in distress. He reports that he got out of bed yesterday; no dizziness reported. Review of Systems Review of Systems: All systems reviewed & are unremarkable except as noted in Subjective Physical Exam Physical Exam: General- oriented x 3, not in distress, speaks in sentences with no effort or accessory muscle use Head- small hematoma/contusion on the right frontal aspect - almost resolved except for discoloration, Another small hematoma/contusion posterior scalp. oth erwise no other obvious signs of injuries Lungs- clear to auscultation bilaterally, no rales/wheezes Heart- normal rate, regular rhythm; no murmur, no gallop, no rub appreciated Abdomen- normal bowel sounds, nondistended, soft, nontender, no masses or hepatosplenomegaly Extremities- no pretibial edema, no calf tenderness; peripheral pulses intact Neuro- alert, oriented x 3; CN 2-12 grossly intact; motor 5/5 bilaterally;sensation 100% on all extremities; no other gross focal neurologic deficits Results & Data Results & Data Vital Signs (Past 12 Hours) Vital Signs Temp Pulse Pulse Resp BP BP Pulse Ox 04/19/25 08:09 36.6 C 68 20 112/62 95 04/19/25 02:39 71 20 118/66 95 04/19/25 02:23 160/91 H 04/19/25 02:21 36.7 C 86 24 177/100 H 04/19/25 00:00 69 04/18/25 23:38 36.7 C 77 19 102/55 L 04/18/25 23:36 36.8 C 67 15 102/55 L 95 O2 Del Method 04/19/25 08:09 Room Air 04/19/25 02:39 04/19/25 02:23 04/19/25 02:21 04/19/25 00:00 04/18/25 23:38 04/18/25 23:36 Room Air
[2025-04-19] MEDS: POLYETHYLENE (MIRALAX) 17 GM PACK PO SCH (11:38)
--- NOTE | 2025-04-19 11:38 | Cardiology Progress Note ---
Date of Service April 19, 2025 Assessment & Plan (1) Dizziness: Plan: 79-year-old male with complex history as previously outlined which includes nonischemic cardiomyopathy status post BiV pacer defibrillator with improved LV systolic function. Most recent generator exchange April 2024 Patient presents this admission after fall with rib fractures, mechanical injuries possibly orthostasis mediated. No arrhythmias defined on device interrogation or since admission. Once again episode fall possible syncope on arising from bed last night early a.m. Telemetry without. Orthostatic on exam once again. This morning Physical examination without signs of congestive heart failure Impression and plan 1. Orthostasis with falls: Hold Entresto. Will reduce metoprolol succinate to 12.5 mg every afternoon 2. Paroxysmal atrial fibrillation/ventricular arrhythmias continue amiodarone 3. Status post BiV pacer defibrillator with no arrhythmia 4. Nonischemic cardiomyopathy with reduced ejection fraction. Currently compensate without signs of heart failure continue to hold furosemide and spironolactone 04/18/2025 Continued hypotension and mild orthostasis though less symptomatic no further falls or injury. Continue to hold cardiac medications as previously. No signs or symptoms of congestive heart failure at this time Add midodrine 2.5 mg 3 times daily PT and OT begin to mobilize suspect patient will require rehab as part of management Caution with any new medications added for urinary retention 04/19/2025 Stable from cardiac standpoint without signs or symptoms of congestive heart failure Continue to hold medications as previously continue midodrine Increase activities PT OT and rehab Will need cardiology follow-up as outpatient may consider reinstitution of low- dose ARB once clinically improved Contact with additional questions (2) Fall: (3) Chest wall contusion: (4) Multiple fractures of ribs: (5) NICM (nonischemic cardiomyopathy): (6) AICD (automatic cardioverter/defibrillator) present: Plan: Remote device interrogation was sent from the emergency department 04/14/25 and I reviewed the findings with the [facility] medical advisor. Patient is chronically ventricular paced 99% of the time. No arrhythmia episodes occurred at the time of event. Normal device function noted. Generator longevity around 3 years. Patient did have an EKG on arrival to the emergency department that is available for review in MUSE web revealing SR with ventricular paced QRS complexes. Summary of ttecho performed as an outpatient on 07/29/24: The qualitative LV ejection fraction is 40-44% (mildly reduced). The LV wall thickness is mildly increased (concentric). The septal motion is abnormal consistent with left bundle branch block. The remaining left ventricular wall segments are mildly hypokinetic. Mild tricuspid regurgitation is present. There is no evidence of pulmonary hypertension. Compared to last available study changes are noted as follows: Left ventricular systolic function has improved. CT Chest / abd/ pelvis performed as part of trauma work up today revealed no pericardial effusion, no pleural effusion. There are acute nondisplaced fractures of the left anterior 5th through 7th ribs. Past progress notes described with limitations with regards to titrating congestive heart failure medication due to orthostatic hypotension. The patient states that he takes his furosemide and spironolactone 3 days/week and typically feels dizzy when he takes these. 04/16/2025: Plan: * Topical lidocaine patch for pain control * Continue metoprolol, amiodarone, atorvastatin * Hemoglobin stable. Eliquis reinitiated. * Orthostatic vital signs as obtained on 04/15/2025 at or negative for orth ostasis. * Reintroduce Entresto first 24/26 mg tab 1/2 BID. * Furosemide and spironolactone which the patient takes 3 days/week) remain on hold. * Non emergent in person device interrogation recommended during this stay or as an outpatient as generator longevity lower than anticipated for a device place a year ago. * Patient stable from cardiac perspective for transfer out of ICU to PCU or telemetry depending on trauma considerations. Donya Schulte DO Admission and Anticipated Discharge Date Admission Date: April 14, 2025 Subjective Patient was seen and examined, chart, telemetry reviewed. No acute complaints no chest pain or tachypalpitations Occasional lightheadedness when sitting on edge of bed. Was able to ambulate in unit yesterday with tolerance. Physical therapy working with patient No signs of or symptoms of congestive heart failure, no arrhythmia Review of Systems Review of Systems: All systems reviewed & are unremarkable except as noted in Subjective Physical Exam Constitutional: no acute distress Eyes: PERRL, conjunctivae normal, anicteric sclerae ENMT: external ear and nose normal, oropharynx normal Neck: trachea midline, no thyromegaly Respiratory: normal respiratory effort, lungs clear to auscultation Cardiovascular: Rate/Rhythm: regular rate and regular rhythm Vessels: no J VD Extremities: no edema Chest (Breasts): Chest: + pacemaker (Pacer defibrillator without irritation) Gastrointestinal (Abdomen): normal bowel sounds, soft, nontender, no hepatosplenomegaly Musculoskeletal: no cyanosis or clubbing, extremities motor strength 5/5 Head/Neck/Chest: + scalp tenderness (Healing contusion right temporal area fresh ecchymosis occipital) Results & Data Vital Signs (Past 12 Hours) Vital Signs Temp Pulse Pulse Resp BP BP Pulse Ox 04/19/25 08:09 36.6 C 68 20 112/62 95 04/19/25 02:39 71 20 118/66 95 04/19/25 02:23 160/91 H 04/19/25 02:21 36.7 C 86 24 177/100 H 04/19/25 00:00 69 04/18/25 23:38 36.7 C 77 19 102/55 L 04/18/25 23:36 36.8 C 67 15 102/55 L 95 O2 Del Method 04/19/25 08:09 Room Air 04/19/25 02:39 04/19/25 02:23 04/19/25 02:21 04/19/25 00:00 04/18/25 23:38 04/18/25 23:36 Room Air PG Care Time/CCT Total # of Minutes Spent Total Time Spent with Patient: Total time spent is greater than 50% in coordination of care (as documented) at patient's floor/unit and/or counseling patient: Coding Level of Care Code 55224 SUB INP/OBS CARE 3/50MIN Diagnoses Dizziness R42 Fall W19.XXXA Chest wall contusion S20.219A Multiple fractures of ribs S22.49XA NICM (nonischemic cardiomyopathy) I42.8 AICD (automatic cardioverter/defibrillator) present Z95.810
[2025-04-20 07:16] LABS: Hematocrit (blood only) 32.5 % (42.0-52.0); Hemoglobin 10.8 g/dL (14.0-18.0); Immature Granulocytes # (auto) 0.02 K/uL (0.01-0.20); Immature Granulocytes % (auto) 0.6 %; Mean Corpuscular Hemoglobin 33.0 pg (25.0-34.0); Mean Corpuscular Volume 99.4 fL (80.0-100.0); Platelet Count 132 K/uL (130-400); RDW Standard Deviation 46.3 fL (36.4-46.3); Red Blood Count 3.27 M/uL (4.70-6.10); White Blood Count 3.24 K/ul (4.8-10.8)
[2025-04-20 07:53] LABS: Anion Gap 5.0 (3-11); Blood Urea Nitrogen 27.0 mg/dl (6-23); Calcium 8.4 mg/dl (8.6-10.3); Carbon Dioxide 25.0 mmol/L (21-32); Chloride 109.0 mmol/L (98-107); Creatinine Clr Calc Pharmacy 80.0 ml/min; Glucose 99.0 mg/dl (70-99(Fasting)); Potassium 4.0 mmol/L (3.5-5.1); Sodium 139.0 mmol/L (136-145)
--- NOTE | 2025-04-20 11:40 | Hospitalist Progress Note ---
Date of Service April 20, 2025 Assessment & Plan (1) Pre-syncope: (2) Fall: (3) AICD (automatic cardioverter/defibrillator) present: Plan: 79 yo M w/ PMH of CAD, biventricular heart failure with reduced ejection fraction, nonischemic cardiomyopathy, EF 40%, status post AICD, paroxysmal atrial fibrillation on Eliquis, CKD stage III, hypothyroidism, presenting with an episode of dizziness and fall while shoveling snow. 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 +ve ortho vitals. Cards on board, meds being optimized- c/w Metoprolol half dose, hold Entresto. Aldactone and lasix on hold. Eliquis resumed. monitor HnH closely, monitor post scalp hematoma.. c/w tele monitoring. Acute urinary retention status post Garrison placementfound to have urinary retention on 04/18; Garrison placed. Will continue Garrison for 1 week and do trial of void Left rib fractures: fifth-7, acute, nondisplaced, secondary to fall. On RA. Encouraged IS. C/w pain Mx. Right frontal aspect head hematoma secondary to fall CT head no acute intracranial bleed neurologically intact, monitor. 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 Paroxysmal atrial fibrillation: Continue w/ metoprolol, eliquis and amiodarone. CKD stage III- Stable Hypothyroidism- Continue levothyroxine DVT prophylaxis: eliquis Full CODE STATUS Dispo- rehab when bed is available Please note the above document was generated using voice recognition software. It may contain grammatical, syntax or spelling errors. Any formal questions or concerns about the content, text or information contained within the body of this dictation should be directly addressed to the provider for clarification Admission and Anticipated Discharge Date Admission Date: April 14, 2025 Subjective Patient seen and examined at bedside. He is comfortable; not in distress. Reports some intermittent dizziness. No complaint of chest pain, shortness of breath, fever, chills or abdominal pain. Review of Systems Review of Systems: All systems reviewed & are unremarkable except as noted in Subjective Physical Exam Physical Exam: General- oriented x 3, not in distress, speaks in sentences with no effort or accessory muscle use Head- small hematoma/contusion on the right frontal aspect - almost resolved except for discoloration, Another small hematoma/contusion posterior scalp. otherwise no other obvious signs of injuries Lungs- clear to auscultation bilaterally, no rales/wheezes Heart- normal rate, regular rhythm; no murmur, no gallop, no rub appreciated Abdomen- normal bowel sounds, nondistended, soft, nontender, no masses or hepatosplenomegaly Extremities- no pretibial edema, no calf tenderness; peripheral pulses intact Neuro- alert, oriented x 3; CN 2-12 grossly intact; motor 5/5 bilaterally;sensation 100% on all extremities; no other gross focal neurologic deficits Results & Data Results & Data Vital Signs (Past 12 Hours) Vital Signs Temp Pulse Pulse Resp BP Pulse Ox O2 Del Method 04/20/25 10:55 36.6 C 67 19 125/76 98 Room Air 04/20/25 08:49 93 H 04/20/25 08:00 62 04/20/25 07:09 36.5 C 68 19 119/70 93 Room Air 04/20/25 02:51 36.8 C 63 18 128/79 96 Room Air
[2025-04-20 19:53] VITALS: RESP 18
[2025-04-21 08:27] VITALS: O2SAT 94
[2025-04-21 11:04] VITALS: BP 127/74; PULSE 68; TEMP 97.7
--- NOTE | 2025-04-21 11:43 | Discharge Summary ---
Date of Service April 21, 2025 Admission HPI Per Admitting Provider 79-year-old male with history of coronary artery disease, biventricular heart failure with reduced ejection fraction, nonischemic cardiomyopathy, EF 40%, status post AICD, Paroxysmal atrial fibrillation on Eliquis, CKD stage III, hypothyroidism, presenting with an episode of dizziness and fall while shoveling snow this morning. As per patient, his blood pressure is usually running systolic 90s when he would check his blood pressure before bedtime. He also reports intermittent dizziness at home. This morning, the patient show pulse no for about 20 minutes and then went back inside the house to rest for about half an hour. He then went outside again to resume shoveling snow, but as he bent down to pickle maker a shovel the patient felt very lightheaded, almost going to pass out, so he decided to walk a few steps to the porch To sit on the chair. Unfortunately, he was not able to make it to the chair and, fell over instead, hitting his chest on the side of the chair. He did not lose consciousness and was able to crawl his way inside the house. He also hit his head while calling back inside the house. He denies any Palpitations orsensation of firing from the AICD.He was able to call 911 for help and was brought to the ER. At the ER, blood pressure 114/79, heart rate 67, respiratory 18, afebrile, 95% on room air. EKG showing ventricular paced rhythm Hemoglobin 14 CT head: No acute intracranial abnormality or calvarial fracture CT cervical spine: No acute fracture or subluxation CT chest: nondisplaced, acute,Left rib fracture 5-7 CT abdomen and pelvis: No evidence of solid organ injury On my exam, patient seen resting in bed, not in distress, awake and alert, oriented x 3, answering questions appropriately, Very pleasant States he feels somewhat weak and still shaky, still having 6 out of 10 bilateral rib pain more on the left, worse with inspiration, but no shortness of breath Denies headache, nausea vomiting, blurring of vision, focal neurologic deficits no abdominal pain, hematuria No other pain in his body Admission Exam Per Admitting Provider General- oriented x 3, not in distress, speaks in sentences with no effort or accessory muscle use Head- positive small hematoma/contusion on the right frontal aspect, otherwise no other obvious signs of injuries Eyes- PERRL, EOMI, anicteric ENT- positive dry oral mucosa,oropharynx clear Neck- supple, no JVD, no adenopathy, no thyromegaly; carotids +2/2, no bruits appreciated Lungs- clear to auscultation bilaterally, no rales/wheezes Heart- normal rate, regular rhythm; no murmur, no gallop, no rub appreciated Abdomen- normal bowel sounds, nondistended, soft, nontender, no masses or hepatosplenomegaly Extremities- left arm: Positive faint hematoma on the bicep area no pretibial edema, no calf tenderness; peripheral pulses intact Neuro- alert, oriented x 3; CN 2-12 grossly intact; motor 5/5 bilaterally;sensation 100% on all extremities; no other gross focal neurologic deficits Skin- warm & dry Principal Diagnosis Orthostatic Hypotension Acute urinary retention status post Garrison placement Discharge Exam General- oriented x 3, not in distress, speaks in sentences with no effort or accessory muscle use Head- small hematoma/contusion on the right frontal aspect - almost resolved except for discoloration, Another small hematoma/contusion posterior scalp. otherwise no other obvious signs of injuries Lungs- clear to auscultation bilaterally, no rales/wheezes Heart- normal rate, regular rhythm; no murmur, no gallop, no rub appreciated Abdomen- normal bowel sounds, nondistended, soft, nontender, no masses or hepatosplenomegaly Extremities- no pretibial edema, no calf tenderness; peripheral pulses intact Neuro- alert, oriented x 3; CN 2-12 grossly intact; motor 5/5 bilaterally;sensation 100% on all extremities; no other gross focal neurologic deficits Discharge Data Allergies Allergy/AdvReac Type Severity Reaction Status Date / Time chocolate flavor Allergy Rash Verified 05/03/24 08:59 Consultations 04/14/25 13:40 ED Decision to Admit Stat 04/14/25 15:42 Consult Cardiology Routine Consult Alarm Adjuster Routine 04/17/25 03:34 Consult Physician Routine Ordered Studies 04/14/25 11:43 CT lumbar spine w con Stat 04/14/25 11:44 CT abd pelvis IV con only Stat CT cervical spine wo con Stat CT chest diagnostic w con Stat CT head/brain wo con Stat 04/17/25 02:04 CT head/brain wo con Stat Hospital Course (1) Pre-syncope: (2) Fall: (3) AICD (automatic cardioverter/defibrillator) present: 79 yo M w/ PMH of CAD, biventricular heart failure with reduced ejection fraction, nonischemic cardiomyopathy, EF 40%, status post AICD, paroxysmal atrial fibrillation on Eliquis, CKD stage III, hypothyroidism, presenting with an episode of dizziness and fall while shoveling snow. Fall, presyncope Orthostatic Hypotension Likely secondary to orthostasis, In the setting of nonischemic cardiomyopathy, status post AICD placement, Paroxysmal atrial fibrillation on Eliquis As per patient baseline BP is on the low side at home and he experiences dizziness when he takes furosemide and Aldactone (he takes is 3x/wk) BP low at presentation. +ve ortho vitals. During the hospitalization; cardiology was consulted for comanagement. Metoprolol dose was decreased to 12.5 mg. Entresto, Aldactone and Lasix were stopped. Midodrine was restarted. Patient's orthostatic hypotension improved. Patient discharged to rehab with instruction to follow-up with cardiology to restart the medication. Acute urinary retention status post Garrison placementfound to have urinary retention on 04/18; Garrison placed. Trial of void at rehab Please note the above document was generated using voice recognition software. It may contain grammatical, syntax or spelling errors. Any formal questions or concerns about the content, text or information contained within the body of this dictation should be directly addressed to the provider for clarification Total Time Total Time Spent Total Time Spent (In Minutes): 45 Total Time Includes: Examination of the Patient, Discharge Planning, Medication Reconciliation, Communication With Other Providers and Other Discharge Plan Discharge Items Patient Disposition: [facility] Reason For Visit: FALL, PRESYNCOPE Discharge Diagnosis: Fall, presyncope Acute urinary retention status post Garrison placement Condition on Discharge: Fair Activity: Per Instructions section Non-emergency contact: Primary Care Provider Call non-emergency contact if: you have any medication questions Follow-up/Referrals: Barney Reno MD [Primary Care Provider] - Diet: Regular Addtl Attending Provider Instructions: You were admitted to the further due to low blood pressure and falls. You were evaluated by cardiology during the hospitalization. Following changes have been made to your medication regimen; Stop taking Entresto, spironolactone, Lasix. Start taking metoprolol 12.5 mg once a day. Start taking midodrine 2.5 mg 3 times a day. Trial of void to be done on April 23, 2025 at rehab. He will need urology follow-up at discharge. Pending Studies at Discharge: No Stand-Alone Forms: My [facility] Health, Work/School Release, Smoking Cessation Skilled Items Patient informed of condition?: Yes DNR: No Discharge Level of Care: Skilled Communicable Disease: No Discharge Prognosis: Stable Lines: None Urinary Catheter: Yes (Trial of void of April 23, 2025) Medications and DC Order Prescriptions: New midodrine 2.5 mg Tablet 2.5 mg PO TID@0800,1200,1700 Qty: 90 0RF acetaminophen [Tylenol Extra Strength] 500 mg Tablet 1,000 mg PO Q8H PRN (Reason: fever or pain) Qty: 60 0RF metoprolol succinate 25 mg Tablet Extended Release 24 Hr 12.5 mg PO HS Qty: 60 0RF polyethylene glycol 3350 [Miralax] 17 gram Powder In Packet 17 g PO DAILY 30 Days Qty: 30 0RF Continued atorvastatin 20 mg Tablet 20 mg PO QAM folic acid 400 mcg Tablet 0.4 mg PO QAM thiamine HCl (vitamin B1) 100 mg Tablet 100 mg PO QAM amiodarone 200 mg tablet 200 mg PO QAM timolol maleate 0.25 % drops 1 drp ophthalmic (eye) QAM levothyroxine 50 mcg tablet 50 mcg PO QAM Vyzulta 0.024 % drops 1 drp ophthalmic (eye) HS cyclobenzaprine 10 mg tablet 5 mg PO DAILY PRN (Reason: Pain) Qty: 30 0RF Eliquis 5 mg tablet 5 mg PO BID Qty: 60 0RF Discontinued metoprolol succinate 25 mg Tablet Extended Release 24 Hr 25 mg PO HS sacubitril-valsartan [Entresto] 24-26 mg Tablet 1 tab PO BID spironolactone 25 mg tablet 12.5 mg PO 3XWK furosemide 20 mg tablet 20 mg PO 3XWK Discharge Orders: Discharge Order (Routine); Ordered 04/21/25 Ordered By: Hector Blakely Admission Data Admit Date/Time: 04/14/25 14:10 Attending Provider: Hector Blakely Admit Provider: Otto Caban Primary Care Provider: Barney Reno Other Providers: Otto Caban; Isaías Alas; Zack Merrill; [facility]; Heraclio Douglas at [place] Other Interventions: Discharge Summary Assessment (RN) Last Done: 04/21/25 10:50
== END 2025-04-21 13:53 | DRG 281 ==
LOC: ED 11:37 → 1E 14:10 → SUATTDRO 14:10 → 1E 16:25 → 2S 04-19 22:26